=== PATIENT | male | born 1940 | race Caucasian/White ===

== ENCOUNTER 2019-04-28 09:25 | Inpatient (IN) ==
[2019-04-22 17:13] LABS: Basophils # (Auto) 0 K/mcL (0.0-0.3); Basophils % (Auto) 0.5 % (0.0-2.0); Eosinophils # (Auto) 0.2 K/mcL (0.0-0.7); Eosinophils % (Auto) 1.9 % (0.0-7.0); Granulocytes % (Auto) 66.4 % (38.0-78.0); Hemoglobin 14.4 g/dL (13.5-16.5); Lymphocytes # (Auto) 2.1 K/mcL (1.5-4.8); Lymphocytes % (Auto) 23.5 % (15.5-49.0); Mean Cell Volume 92.6 fL (80.0-100.0); Mean Corpuscular HGB Conc 32.1 g/dL (31.0-36.0); Monocytes # (Auto) 0.7 K/mcL (0.1-0.9); Monocytes % (Auto) 7.7 % (1.0-12.0); Platelet Count 230 K/mcL (140-440); RBC 4.86 M/mcL (4.50-5.90); Red Cell Distribution Width 17.5 % (11.5-14.5); WBC 9.1 K/mcL (4.5-11.0)
[2019-04-22 17:22] LABS: Prothrombin Time 13.6 sec (11.9-14.5)
[2019-04-22 17:56] LABS: Blood Urea Nitrogen 16 mg/dl (8-23); Calcium 9.3 mg/dl (8.6-10.4); Carbon Dioxide 25 mmol/L (22-30); Chloride 97 mmol/L (96-108); Glomerular Filtration Rate 57; Glucose 117 mg/dL (70-105)
[2019-04-22 19:19] LABS: Appearance,Urine HAZY; Bacteria,Urine 0 /hpf (0); Bilirubin,Urine NEG (NEG); Color,Urine AMBER; Culture Indicated,Urine YES; Glucose,Urine (UA) NEGATIVE (NEG); Ketones,Urine NEG (NEG); Leukocyte Esterase,Urine 25 /uL (NEG); Mucus,Urine MANY /hpf (0); Nitrate,Urine NEG (NEG); Protein,Urine 30 mg/dL (NEG); Specific Gravity,Urine 1.028 (1.000-1.035); Urine Blood NEG mg/dL (<0.03); Urine Granular Cast 2 /lpf (0); Urine Hyaline Cast 17 /lpf (0-2); Urine RBC 1 /hpf (0-1); Urine Squamous Epithelial Cell 1 /hpf (0-4); Urine WBC 11 /hpf (0-4)
[~2019-04-28 09:25] MED LIST: 0.9 % SODIUM CHLORIDE 9 ML, KETOROLAC 30 MG, ROPIVACAINE HCL/PF 49.5 ML, EPINEPHrine 0.... IJ SCH; CELECOXIB 200 MG CAPSULE PO SCH; PREGABALIN 75 MG CAPSULE PO SCH; ceFAZolin 3 GM in DEXTROSE 5% IN WATER 50 ML IV SCH; oxyCODONE 10 MG TAB.ER.12H PO SCH
[2019-04-28] MEDS ORDERED: SCOPOLAMINE 1 PATCH PATCH TOPICAL PRN (15:00)
[2019-04-28] MEDS ORDERED: IPRATROPIUM/ALBUTEROL 3 ML AMPUL.NEB NEB PRN ×2 (15:00→16:33)
[2019-04-28] MEDS ORDERED: ePHEDrine 50 MG/ML AMPUL IV ONE (15:25)
[2019-04-28] MEDS ORDERED: TRANEXAMIC ACID 1,000 MG/10 ML VIAL IV ONE ×2 (15:25→16:57)
[2019-04-28] MEDS ORDERED: DEXAMETHASONE 10 MG/ML VIAL IV ONE (15:25)
[2019-04-28] MEDS ORDERED: PROPOFOL 200 MG/20 ML VIAL IV ONE (15:25)
[2019-04-28] MEDS ORDERED: MIDAZOLAM 5 MG/5 ML VIAL IV ONE (15:25)
[2019-04-28] MEDS ORDERED: LIDOCAINE HCL/PF 100 MG/5 ML SYRINGE IV ONE (15:25)
[2019-04-28] MEDS ORDERED: ONDANSETRON 4 MG/2 ML VIAL IV ONE (15:25)
[2019-04-28] MEDS ORDERED: ROPIVACAINE HCL/PF 20 ML VIAL IJ ONE (15:25)
[2019-04-28] MEDS ORDERED: ONDANSETRON 4 MG/2 ML VIAL IV PRN ×3 (16:33→21:40)
[2019-04-28] MEDS ORDERED: MEPERIDINE 25 MG/ML SYRINGE IV PRN (16:33)
[2019-04-28] MEDS ORDERED: diphenhydrAMINE 50 MG/ML VIAL IV PRN (16:33)
[2019-04-28] MEDS ORDERED: LACTATED RINGERS 250 ML IV PRN (16:33)
[2019-04-28] MEDS ORDERED: fentaNYL 100 MCG/2 ML VIAL IV PRN (16:33)
[2019-04-28] MEDS ORDERED: PROMETHAZINE 25 MG/ML VIAL IV PRN (16:33)
[2019-04-28] MEDS ORDERED: ACETAMINOPHEN 1,000 MG/100 ML BOTTLE IV ONE (16:33)
[2019-04-28] MEDS ORDERED: FLUMAZENIL 0.1 MG/ML ML IV PRN (16:33)
[2019-04-28] MEDS ORDERED: NALOXONE HCL 0.4 MG/ML VIAL IV PRN (16:33)
[2019-04-28] MEDS ORDERED: BENZOCAINE/MENTHOL 1 LOZENGE PO PRN ×3 (16:33→21:40)
[2019-04-28] MEDS ORDERED: GENTAMICIN SULFATE 800 MG/20 ML VIAL IR ONE (16:40)
[2019-04-28] MEDS ORDERED: LACTATED RINGERS 1,000 ML IV SCH (16:45)
[2019-04-28] MEDS ORDERED: METHOCARBAMOL 750 MG TABLET PO PRN ×2 (16:57→21:40)
[2019-04-28] MEDS ORDERED: MAGNESIUM HYDROXIDE 30 ML ORAL.SUSP PO PRN ×2 (16:57→21:40)
[2019-04-28] MEDS ORDERED: POLYETHYLENE GLYCOL 3350 17 GM PACKET PO PRN ×2 (16:57→21:40)
[2019-04-28] MEDS ORDERED: HYDROcodone/APAP 10/325MG TABLET PO PRN ×2 (16:57→21:40)
[2019-04-28] MEDS ORDERED: FLEETS ADULT ENEMA PR PRN ×2 (16:57→21:40)
[2019-04-28] MEDS ORDERED: BISACODYL 10 MG SUPP.RECT PR PRN ×2 (16:57→21:40)
[2019-04-28] MEDS ORDERED: ONDANSETRON 4 MG ODT TABLET SL PRN ×2 (16:57→21:40)
--- NOTE | 2019-04-28 16:57 | Brief Operative Note ---
Date of procedure: 04/28/19 Pre-op diagnosis: right knee osteoarthritis Post-op diagnosis: same Procedure: right total knee arthroplasty Grafts/Implants: Yes Anesthesia: spinal Complications: none Surgeon: Jovon Coleman Application Manager: Stephanie Bess Estimated blood loss (cc): 200 Tourniquet Time (Minutes): 59 Specimens Removed/Pathology: none sent Condition: stable Disposition: PACU
[2019-04-28] MEDS ORDERED: 0.9 % SODIUM CHLORIDE 1,000 ML IV SCH (17:00)
[2019-04-28] MEDS ORDERED: METOPROLOL TARTRATE 5 MG/5 ML VIAL IV PRN ×2 (17:52→21:40)
--- NOTE | 2019-04-28 17:56 | Internal Medicine Consult Note ---
Medical - CN: [facility] - Data of Consult Consult date: 04/28/19 Primary Care Provider: J Luis Rodriguez Family Provider: J Luis Rodriguez - Consult Narrative History of present illness: Mr. Padilla is a 79 year old M Who underwent elective right total knee arthroplasty is noted to have atrial fibrillation at the end of the operation. In PACU. It was rate controlled. The preop EKG was wandering pacemaker. She is hemodynamic stable. Hospitalist consulted for possible new atrial fibrillation Spoke with his and she says he does have in a regular heart rhythm that comes and goes especially if he does not take his verapamil. But she could not recall if it was called atrial fibrillation or flutter. He takes aspirin as a precaution, baby aspirin. His states he is never been on any anticoagulants. Per his he has a history of COPD, she states he will deny it. Unable to gather review of systems as patient still sedated and anesthesia CC: Jovon Coleman Medical - CN: [facility] Medical history: Past medical history: Hypertension hyperlipidemia GERD COPD arrhythmia NOS Past surgical history: Left knee appendectomy Family: Mother and father both had cancer Social history: Patient quit smoking a year ago Has 1 mixed drink at night Ambulate with cane Lives at home with his Medical - CN: Meds Home Medications Medication Instructions Recorded Confirmed Type Aspirin [Adult Aspirin] 81 mg PO DAILY 04/22/19 04/28/19 History Ferrous Sulfate [Feosol] 650 mg PO DAILY 04/22/19 04/28/19 History Furosemide [Lasix] 80 mg PO DAILY 04/22/19 04/28/19 History Lisinopril [Zestril] 20 mg PO DAILY 04/22/19 04/28/19 History Lovastatin 40 mg PO DAILY 04/22/19 04/28/19 History Ranitidine HCl [Acid Appeals Referee] 150 mg PO DAILY 04/22/19 04/28/19 History Verapamil [Calan Sr] 240 mg PO DAILY 04/22/19 04/28/19 History Vit A,C & E/Lutein/Minerals 1 tab PO DAILY 04/22/19 04/28/19 History [Ocuvite] Vitamin D3 5,000 unit PO DAILY 04/22/19 04/28/19 History Allergies Allergy/AdvReac Type Severity Reaction Status Date / Time No Known Drug Allergies Allergy Unverified 04/22/19 13:05 Medical - CN: Exam - Constitutional Vitals: Temp Pulse Resp BP Pulse Ox 97.8 F 86 17 122/71 94 04/28/19 17:12 04/28/19 17:40 04/28/19 17:40 04/28/19 17:40 04/28/19 17:40 Exam: General: Still sedated from anesthesia, no acute distress Eyes/N/T: PEERL, Head/Neck: neck supple, normocephalic atraumatic CV: irreg irreg, No murmurs, normal s1/s2 Pulm: Clear b/l, no wheezing/rhonchi/rales Abd: soft, +BS x4, 2 burnt Ext: no clubbing/cyanosis/edema Neuro: Still sedated from anesthesia but moving arms spontaneously, partially opens eyes to voice Skin: warm/dry Medical - CN: Result - Labs CBC & Chem 7: 04/22/19 13:39 04/22/19 13:39 Medical - CN: A/P - Narrative A/P Narrative: A: *AFib post-op: ?new or chronic (PAF): states he has an arrhythmia that he takes verapamil for and she does not recall what type, he has not been on anticoagulation -CHADSVASC=3 *Right TKA: *HTN/HLD: *GERD: *COPD: * P: -cont home verapamil -check mg/tsh/echo -Obtain records from primary care provider -Monitor on telemetry -Discussed with patient regarding anticoagulation - -knee per ortho, pt/ot -ppx: per ortho
[2019-04-28] MEDS ORDERED: KETOROLAC 15 MG/ML VIAL IV SCH (18:00)
--- NOTE | 2019-04-28 18:02 | XRay Report ---
CLINICAL INFORMATION: Post-Op Total Knee COMPARISON: None. FINDINGS: Total knee prostheses is anatomically aligned. No osseous abnormality. Periarticular gas and soft tissue swelling seen as expected. IMPRESSION: Negative Interpreted and Authenticated by: Jovon Raymundo 04/28/19
[2019-04-28 19:14] LABS: Basophils # (Auto) 0 K/mcL (0.0-0.3); Basophils % (Auto) 0.2 % (0.0-2.0); Eosinophils # (Auto) 0.2 K/mcL (0.0-0.7); Eosinophils % (Auto) 2.1 % (0.0-7.0); Granulocytes % (Auto) 82.6 % (38.0-78.0); Hematocrit 41.9 % (41.0-55.0); Hemoglobin 13.5 g/dL (13.5-16.5); Lymphocytes # (Auto) 1.1 K/mcL (1.5-4.8); Lymphocytes % (Auto) 14.3 % (15.5-49.0); Mean Cell Volume 92.3 fL (80.0-100.0); Mean Corpuscular HGB Conc 32.2 g/dL (31.0-36.0); Monocytes # (Auto) 0.1 K/mcL (0.1-0.9); Monocytes % (Auto) 0.8 % (1.0-12.0); Platelet Count 196 K/mcL (140-440); RBC 4.54 M/mcL (4.50-5.90); Red Cell Distribution Width 17.3 % (11.5-14.5); WBC 7.5 K/mcL (4.5-11.0)
[2019-04-28 19:46] LABS: ALT/SGPT 14 U/l (0-40); AST/SGOT 14 U/l (0-37); Albumin 3.5 gm/dL (3.2-5.2); Albumin/Globulin Ratio 1.3 (1.0-2.3); Alkaline Phosphatase 67 U/L (39-117); Bilirubin,Direct < 0.2 mg/dL (0.0-0.3); Bilirubin,Total 0.3 mg/dL (0.0-1.0); Blood Urea Nitrogen 16 mg/dl (8-23); Calcium 8.8 mg/dl (8.6-10.4); Carbon Dioxide 24 mmol/L (22-30); Chloride 102 mmol/L (96-108); Globulin 2.8 gm/dL (2.2-3.7); Glomerular Filtration Rate 57; Glucose 177 mg/dL (70-105); Lactate Dehydrogenase 180 U/L (94-250); Phosphorous 3.4 mg/dL (2.7-4.5); Triglycerides 194 mg/dl (<150); Uric Acid 9.4 mg/dL (2.5-8.0)
[2019-04-28] MEDS ORDERED: SIMVASTATIN 10 MG TABLET PO SCH (21:00)
[2019-04-28] MEDS ORDERED: ASPIRIN 81 MG TAB.CHEW PO SCH (21:00)
[2019-04-28] MEDS ORDERED: SENNOSIDES 1 TABLET PO SCH (21:00)
[2019-04-28] MEDS ORDERED: DOCUSATE SODIUM 100 MG CAPSULE PO SCH (21:00)
[2019-04-28] MEDS: 0.9 % SODIUM CHLORIDE 1,000 ML IV SCH (21:51)
[2019-04-28] MEDS: 0.9 % SODIUM CHLORIDE 10 ML SYRINGE IV SCH (21:52)
[2019-04-28] MEDS ORDERED: ASPIRIN 81 MG TAB.CHEW ONE (21:57)
[2019-04-28] MEDS ORDERED: 0.9 % SODIUM CHLORIDE 10 ML SYRINGE IV SCH (22:00)
[2019-04-28] MEDS: ceFAZolin 1 GM VIAL IV SCH (22:08)
[2019-04-28] MEDS ORDERED: ceFAZolin 1 GM VIAL IV SCH (22:30)
[2019-04-28] MEDS: KETOROLAC 15 MG/ML VIAL IV SCH (23:55)
[2019-04-29] MEDS: 0.9 % SODIUM CHLORIDE 1,000 ML IV SCH (05:51)
[2019-04-29] MEDS: 0.9 % SODIUM CHLORIDE 10 ML SYRINGE IV SCH (05:52)
[2019-04-29] MEDS: ceFAZolin 1 GM VIAL IV SCH (05:52)
[2019-04-29] MEDS: KETOROLAC 15 MG/ML VIAL IV SCH (05:53)
[2019-04-29 05:57] LABS: Hematocrit 38.3 % (41.0-55.0); Hemoglobin 12.6 g/dL (13.5-16.5)
--- NOTE | 2019-04-29 07:24 | Operative Note ---
DATE OF OPERATION: 04/28/2019 PREOPERATIVE DIAGNOSIS: Degenerative joint disease, right knee. POSTOPERATIVE DIAGNOSIS: Degenerative joint disease, right knee. PROCEDURE: Right total knee arthroplasty. SURGEON: Vickie Coleman M.D. BALLISTICS PROFESSOR SURGEON: Stephanie Bess PA-C. This provider's expertise and technical skill were required throughout the case. The PA assisted with preoperative coordination, intraoperative retraction, wound closure, dressing and splint application, as well as postoperative documentation and care coordination. ANESTHESIA: Spinal with LMA assist. ESTIMATED BLOOD LOSS: 150 mL COMPLICATIONS: None noted. SPECIMENS REMOVED: None. DRAINS: None. TOURNIQUET TIME: 59 minutes at 300 mmHg. IMPLANTS: DePuy CMW2 bone cement 20 grams x5, DePuy Attune femoral posterior stabilized size 9 right cemented, DePuy Attune tibial based fixed bearing size 9 cemented, DePuy Attune tibial insert fixed bearing posterior stabilized size 9, 8 mm AOX, DePuy Attune patella medialized dome 41 mm cemented AOX. INDICATIONS: The patient has had a long-standing history of worsening pain in the knee that has failed conservative treatment. Radiographs have confirmed advanced degenerative joint disease. After a long discussion about treatment options, the patient elected to proceed with a knee arthroplasty. The risks and benefits were discussed with the patient in detail including, but not limited to, the risks of anesthesia, problems with the heart or lungs related to anesthesia, infection, compromise or injury to the nerves and blood vessels, deep venous thrombosis, pulmonary embolism, pneumonia, continued pain after surgery, worsening pain or symptoms after surgery, swelling, loss of motion, instability, leg length discrepancy, and need for repeat surgery. DESCRIPTION OF PROCEDURE: The patient was seen in the pre-anesthesia waiting room where all questions were answered and the correct side and site were identified and marked. The patient was transferred to the operating room and administered the anesthetic and given pre-operative antibiotics. A time-out was then called. The extremity was prepped and draped, exsanguinated, and the tourniquet was inflated to 300 mmHg. A midline skin incision was then made with a standard medial parapatellar arthrotomy. Debridement of the menisci, ACL, and PCL was performed followed by balancing releases in the medial lateral plane. We then established intramedullary access to both the femur and tibia in a standard fashion. The femoral guide rimma was initially placed with the distal femoral guide, pinned into place, and the distal femoral cut was performed and checked with a flat plate. We then turned our attention to the tibia. The intramedullary guide was placed with the proximal tibial cutting block. The block was appropriately positioned off the affected side, varus and valgus was checked with the extra-medullary guide, and the block was pinned into place. The proximal tibial cut was performed and the tibia was prepared for the tibial implant with appropriate rotation. The tibia, femur, and posterior compartment were debrided of osteophytes, loose bodies, and meniscal fragments We then used the gap balancing technique to balance extension with the first two cuts and good balancing was obtained with a 10 millimeter gap block. We turned our attention back to the femur and used the referencing block and implant to size appropriately. Using the gap balancing technique for the flexion space we set our rotation of the femur off the tibial cut. Anesthesia gave the patient 1 gram of Tranexamic Acid via an intravenous route. We placed the 4 in 1 cutting block and made anterior, posterior, and chamfer cuts. Box plasty cuts were then made in a standard fashion for the posterior stabilized prosthesis. We then completed osteophyte release and posterior capsule release from the posterior compartment. Trials were placed and we chose the polyethylene insert thickness that provided the best stability in all planes. With the trials in place, we did a measured resection for a resurfacing patella. We sized the patella and placed the patella trial and performed a lateral facetectomy with the saw and rongeur. Good tracking was obtained. We removed all trials, irrigated and dried all cut surfaces. We cemented the components into place including tibia, femur and patella. We placed a trial liner and held the knee in full extension with the patella compressed while the cement cured. We then removed all excess cement and placed the final polyethylene tibiofemoral component. Irrigation with 3 liters of antibiotic saline was then performed using jet-lavage. We let the tourniquet down and coagulated bleeding vessels. We injected a 100 cubic centimeter volume including Ropivacaine 49.25 cubic centimeters at 5 milligrams per cubic centimeter, Ketorolac 30 milligrams, and Epinephrine 0.5 milligrams into 100 cubic centimeters volume of normal saline. We closed the retinaculum with #2 Stratafix and 0 Vicryl. We closed the subcutaneous tissue and skin in layers out to Dermabond on the skin. A sterile pressure dressing was applied. All needle and sponge counts were correct. The patient was transferred to the recovery room in stable condition. JARAD:kylee Job ID: [id number] Doc ID: [id number] Vickie Coleman MD
--- NOTE | 2019-04-29 07:31 | Discharge Summary ---
Providers - Providers Patient information: Note initiated : 04/29/19 at 7:29 am Service Date, if different from initiated Date: [] Patient: Jovon Padilla 79 y/o M admitted on 04/28/19 for Right Total Knee Arthroplasty. Chief Complaint: [POD #1 s/p right TKA Unable to speak with patient during my visit as he's undergoing echocardiogram. He was placed in ICU on telemetry post op as he developed atrial fibrillation during surgery. Nurse states his knee is doing well. He was able to stand and walk.] Discharge date: 04/29/19 Hospitalization Hospital course: Patient underwent right total knee replacement and developed atrial fibrillation at the end of surgery. He was sent to telemetry in the ICU to monitor this. The hospitalist was consulted to manage this condition and is running tests at this time. From an ortho standpoint, he may discharge when medically stable. He will follow up in 10-14 days for post op care. Discharge diagnosis: knee osteoarthritis Exam - Exam Range of motion: unable to perform exam Ortho Discharge - TKA - Patient Instructions Diet: Regular Diet Activity: weight bearing as tolerated Total Knee Protocol: For Total Knee: Start ROM MYNOR with stationary bike or rocking chair. Work on gaining full extension of knee. Posterior dislocation precautions provided. Hip abductor strengthening and gait training instructions provided. Apply Cryocuff as instructed. Dressing Care: May shower in 2 days, Other (dermabond- may remove XIN and gauze. Keep mesh patch on skin until PO in office. May shower on top of, dry when finished and replace with fresh gauze) - Follow Up Plan Follow Up Appointments: Stephanie Bess PA-C [Physician [employer] Middleware Developer] - 05/13/19 9:00 am Disposition: Home, Self-Care Prognosis: Fair Rehab Potential: Fair I certify that the patient requires SNF services: No Overall status at discharge: other (patient being treated for cardiology concern) - Orders For Discharge Prescriptions: HYDROcodone/APAP 10/325MG [[place] 10-325Mg] 1 - 2 tab PO Q4HP PRN #60 tab PRN Reason: Pain Level 3-6 Additional Discharge Orders: Physical Therapy at Discharge - TKA Location: None Selected Walker Location: None Selected Pending Studies Resuscitation Status Full Code Diet Regular Diet Start SatApr 28 1658 Hydrocodone Bitart/Acetaminophen ([place] 10/325mg) 0 tab PO Q4HP PRN PRN Reason: PAIN LEVEL 3-6 Last Admin: 04/28/19 22:20 Dose: 1 tab Documented by: JEROME Sodium Chloride (Sodium Chloride 0.9%) 1,000 mls @ 125 mls/hr IV .Q8H [facility] Last Admin: 04/29/19 05:51 Dose: Not Given Documented by: Admin: 04/28/19 21:51 Dose: Not Given Documented by: JEROME Ketorolac Tromethamine (Toradol) 15 mg IV Q6 [facility] Stop: 04/30/19 12:01 Last Admin: 04/29/19 05:53 Dose: 15 mg Documented by: Admin: 04/28/19 23:55 Dose: 15 mg Documented by: JEROME Sodium Chloride (Saline Flush) 10 ml IV Q8 [facility] Last Admin: 04/29/19 05:52 Dose: 10 ml Documented by: Admin: 04/28/19 21:52 Dose: Not Given Documented by: JEROME Shift Summary 04/29/19 03:45 Shift Summary by Jimmy Swanson Addendum entered by Jimmy Swanson 04/29/19 04:13: per pt and if pt is sleeping please DO NOT GRAB /TOUCH pts arm or shoulder- he WILL SWING at you unintentionally, it is ok to touch his leg or foot, d/t pt being [facility] he awakens with some difficulty Original Note: admitted for Rt. TKA yesterday afternoon, pt had episode of Afib RVR during surgery therefore changed to tele status, pt stated this "isn't new for me", WE NEED RECORDS FROM DR. PINEDA today if possible please per order, AFIB tonight HR 80'S-1teens, did have pause X2 4.09 sec and 2.79 sec, SR post pause for a short time, BP stable, RA mid 90's, 18G LH, stood at bedside and took a few steps w/FWW/gait belt and SBA, tolerated well, , AVB on, tolerated CPM for approx. 2.5 hours at 50 degrees, DSG CDI, cryo on/off t/o night, medicated w/hydrocone 10/325mg x1 for c/o rt. hip pain, receiving scheduled toradol, [facility] but very pleasant, has FWW/cane/crutches at home already, pt wishing to d/c home with today if possible Initialized on 04/29/19 03:45 - END OF NOTE
--- NOTE | 2019-04-29 07:53 | Internal Med Progress Note ---
Medical - PN: Subj Patient information: Note initiated : 04/29/19 at 7:51 am Service Date, if different from initiated Date: [] Patient: Jovon Padilla 79 y/o M admitted on 04/28/19 for Right Total Knee Arthroplasty. Chief Complaint: [] Interval history: Mr. Padilla is a 79 year old M Who underwent elective right total knee arthroplasty is noted to have atrial fibrillation at the end of the operation. In PACU. It was rate controlled. The preop EKG was wandering pacemaker. She is hemodynamic stable. Hospitalist consulted for possible new atrial fibrillation Spoke with his and she says he does have in a regular heart rhythm that comes and goes especially if he does not take his verapamil. But she could not recall if it was called atrial fibrillation or flutter. He takes aspirin as a precaution, baby aspirin. His states he is never been on any anticoagulants. Per his he has a history of COPD, she states he will deny it. 04/29 Patient feeling good. No overnight events. No new complaints. States he has a history of irregular rhythm but cannot tell me if his atrial fibrillation or flutter. He converted normal sinus rhythm about 7:00 this morning. I talked to him about anti-coagulation because of his CHADSVASC=3 and the increased risk of stroke. He wants to stay on aspirin and talk to Dr. Rodriguez. Review of Systems: denies headache/fever/chills/nausea/vomiting/chest or abdominal pain/cough/dyspnea/diarrhea. Otherwise see above. - Constitutional Vitals: Vital Signs Temp Pulse Resp BP Pulse Ox 96.9 F L 110 H 18 106/63 96 04/29/19 04:01 04/28/19 22:01 04/29/19 04:01 04/29/19 04:01 04/29/19 04:01 Period Temp Pulse Resp BP Sys/Donald Pulse Ox Last 24 Hr 96.5 F-98.3 F 43-110 14-22 104-138/57-101 86-100 Intake and Output 04/28/19 04/29/19 04/29/19 21:59 05:59 13:59 Intake Total 2070 1500 Output Total 125 Balance 2071 1375 Weight 128.367 kg Intake & Output: Intake & Output 04/28/19 04/29/1919 21:59 05:59 13:59 Intake Total 2070 1500 Output Total 125 Balance 2070 1375 Weight 128.367 kg Intake: IV 171 1000 Oral 500 IV - Manual Only 1900 Output: Void Amount 125 Other: Meal Nourishment/Supplement Percent of Meal Consumed 100% Feeding Ability Assist with Tray Set Up Urine Appearance Cloudy Sediment Urine Color Bright Yellow Exam: General: alert awake, no acute distress Eyes/N/T: EOMI, Head/Neck: neck supple, CV: RRR, No murmurs, Pulm: Clear b/l, no wheezing/rhonchi/rales Abd: soft, +BS x4, Ext: no clubbing/cyanosis/edema Neuro: alert and awake, no focal deficits Skin: warm/dry Medical - PN: Obj Da - Labs CBC & Chem 7: 04/29/19 03:19 04/28/19 18:18 Labs: Abnormal Lab Results 04/29/19 04/28/19 04/28/19 03:19 18:18 18:18 Hgb 12.6 L Hct 38.3 L RDW 17.3 H Gran % 82.6 H Lymph % (Auto) 14.3 L [place] % (Auto) 0.8 L Lymph # (Auto) 1.1 L Glucose 177 H Uric Acid 9.4 H Triglycerides 194 H Meds: Medications Hydrocodone Bitart/Acetaminophen ([place] 10/325mg) 0 tab PO Q4HP PRN PRN Reason: PAIN LEVEL 3-6 Last Admin: 04/28/19 22:20 Dose: 1 tab Documented by: Aspirin (Aspirin) 81 mg PO BID [facility] Bisacodyl (Dulcolax) 10 mg MO Q2-3DAYS PRN PRN Reason: Constipation Docusate Sodium (Colace) 100 mg PO BID [facility] Famotidine (Pepcid) 20 mg PO DAILY [facility] Furosemide (Lasix) 80 mg PO DAILY [facility] Sodium Chloride (Sodium Chloride 0.9%) 1,000 mls @ 125 mls/hr IV .Q8H [facility] Last Admin: 04/29/19 05:51 Dose: Not Given Documented by: Ketorolac Tromethamine (Toradol) 15 mg IV Q6 [facility] Stop: 04/30/19 12:01 Last Admin: 04/29/19 05:53 Dose: 15 mg Documented by: Lisinopril (Zestril) 20 mg PO DAILY [facility] Magnesium Hydroxide (Milk Of Magnesia) 30 ml PO BIDP PRN PRN Reason: Constipation Methocarbamol (Robaxin) 750 mg PO Q6HP PRN PRN Reason: Muscle Spasm Metoprolol Tartrate (Lopressor) 5 mg IV Q2HP PRN PRN Reason: Tachyarrhythmias HR>110 Morphine Sulfate (Morphine) 0 mg IV Q1HP PRN PRN Reason: PAIN LEVEL > 6 Ondansetron HCl (Zofran) 4 mg IV Q4HP PRN PRN Reason: Nausea And Vomiting Ondansetron HCl (Zofran Odt) 4 mg SL Q4HP PRN PRN Reason: Nausea And Vomiting Polyethylene Glycol (Miralax) 17 gm PO DAILYP PRN PRN Reason: Constipation Senna (Senokot) 2 tab PO HS [facility] Simvastatin (Zocor) 10 mg PO HS [facility] Sodium Biphosphate/Sodium Phosphate (Fleets Adult) 1 dose MO Q3-4DAYS PRN PRN Reason: Constipation Sodium Chloride (Saline Flush) 10 ml IV Q8 [facility] Last Admin: 04/29/19 05:52 Dose: 10 ml Documented by: Throat Lozenges (Cepacol) 1 lozenge PO PRN PRN PRN Reason: Sore Throat Verapamil HCl (Calan Sr) 240 mg PO DAILY [facility] Medical - PN: A/P - Time Spent With Patient Total time spent is greater than 50% in coordination of care (as documented) at patient's floor/unit and/or counseling patient: - Narrative A/P Narrative: A: *AFib post-op: ?new or chronic (PAF): Patient states he has a has history of irregular rhythm but could not say if it was atrial fibrillation flutter -CHADSVASC=3 -Converted to normal sinus rhythm this morning *Right TKA: *HTN/HLD: *GERD: *COPD: *CAD: *Dilated CMP: P: -cont home verapamil -echo pending -I talked to him about anticoagulation because of the increased stroke risk. However he wants to stay on aspirin and follow-up with his primary care provider and decide from there -cont ASA -knee per ortho, pt/ot -ppx: per ortho will sign off. Medical - PN: Qual - VTE Deep Vein Thrombosis/Pulmonary Embolism Present on Admission: No
[2019-04-29] MEDS ORDERED: ASPIRIN 81 MG TAB.CHEW PO SCH (09:00)
[2019-04-29] MEDS ORDERED: LISINOPRIL 20 MG TABLET PO SCH ×2 (09:00)
[2019-04-29] MEDS ORDERED: FUROSEMIDE 40 MG TABLET PO SCH ×2 (09:00)
[2019-04-29] MEDS ORDERED: VERAPAMIL 120 MG TAB.XL.24H PO SCH ×2 (09:00)
[2019-04-29] MEDS ORDERED: FAMOTIDINE 20 MG TABLET PO SCH ×2 (09:00)
[2019-04-29] MEDS ORDERED: DOCUSATE SODIUM 100 MG CAPSULE PO SCH (09:00)
[2019-04-29] MEDS ORDERED: SIMVASTATIN 10 MG TABLET PO SCH (21:00)
[2019-04-29] MEDS ORDERED: SENNOSIDES 1 TABLET PO SCH (21:00)
--- NOTE | 2019-05-22 07:49 | Operative Note ---
DATE OF OPERATION: 04/28/2019 PREOPERATIVE DIAGNOSIS: Right knee wound dehiscence status post fall after total knee arthroplasty. POSTOPERATIVE DIAGNOSIS: Right knee wound dehiscence status post fall after total knee arthroplasty. PROCEDURE: 1. Right knee irrigation and debridement with right knee liner exchange/revision of one component. 2. Right knee antibiotic bead placement. 3. Repair of torn medial retinaculum. SURGEON: Vickie Coleman M.D. OIL LEASE BROKER SURGEON: Stephanie Bess PA-C. This provider's expertise and technical skill were required throughout the case. The PA assisted with preoperative coordination, intraoperative retraction, wound closure, dressing and splint application, as well as postoperative documentation and care coordination. ANESTHESIA: General. INTRAOPERATIVE FINDINGS: Fall with a dehiscence of previously closed wound with no gross contamination, but a complete dehiscence of the medial parapatellar arthrotomy. INDICATIONS: The patient is an 79-year-old male who had previously fallen and had a wound dehiscence which was treated with irrigation and debridement, liner exchange, and antibiotics beads. He was at [facility] and was about 3 weeks out, eliza had just been removed. He went to the bathroom and fell directly onto his knee, onto a metal bar and reopened his knee. We talked about different options. He is at high risk for infection but due to the reopening and his medical condition, I felt that a liner exchange with irrigation and debridement would be a good option rather than temporary two-stage antibiotic spacer. They wished to proceed with surgical intervention. The risks and benefits were discussed with the patient in detail including, but not limited to, the risks of anesthesia, problems with the heart or lungs related to anesthesia, infection, compromise or injury to the nerves and blood vessels, deep venous thrombosis, pulmonary embolism, pneumonia, continued pain after surgery, worsening pain or symptoms after surgery, swelling, loss of motion, re-tear or failure of repair site, and need for repeat surgery. DESCRIPTION OF PROCEDURE: The patient was seen preoperatively where site and side were properly identified and marked, and all questions were answered. He was transferred to the operating room and given 2 grams Rocephin and general anesthesia was administered without complication. He was prepped ad draped in the usual sterile fashion from the talus up to the tourniquet. Tourniquet was deflated and no Esmarch was used. The knee was already opened. We thoroughly irrigated with 6 liters saline under jet lavage. I removed the polyethylene liner and we continued debriding with additional 3 liters antibiotic saline. We used IrriSept. We used ring curets and rongeur to remove all the fibrinous tissue. He has completely dehisced the medial parapatellar arthrotomy. I then exchanged for another polyethylene liner, Attune tibial insert fixed bearing posterior stabilized size 9, 6 mm AOX. We again irrigated with antibiotic saline and IrriSept. I placed antibiotic beads in the knee. I fixed and closed the medial parapatellar arthrotomy with #2 Stratafix. The lateral side was also repaired with #1 Monocryl. We then closed the subcutaneous layer in layers with Stratafix, 2-0 Monocryl, 3-0 Monocryl and the skin was closed with 0 Prolene and eliza. He was dressed with Xeroform, 4 x 4s, ABD, and an Henry bandage. He was placed into a knee ranger, locked in extension. He was then extubated and transferred to a stretcher and taken to the PACU in stable condition. SPECIMENS: None. COMPLICATIONS: None. DRAINS: None. DISPOSITION: To Post-Anesthetic Care Unit in stable condition. JARAD:kylee Job ID: [id number] Doc ID: [id number] Vickie Coleman MD
== END 2019-04-29 11:05 | disposition home or self-care (01) | DRG 470 ==
LOC: MEDSUR 12:33 → ICU 18:05
PROVIDERS: ADMIT Orthopaedic Surgery Sports Medicine; ATTEND Orthopaedic Surgery Sports Medicine

== ENCOUNTER 2019-05-01 09:48 | Inpatient (IN) ==
--- NOTE | 2019-05-01 10:02 | Emergency Department Note ---
Lower Extremity Injury HPI - General Chief Complaint: Extremity Injury, Lower Stated Complaint: lower extremity injury Time Seen by Provider: 05/01/19 10:00 Source: patient Mode of arrival: EMS Limitations: no limitations - History of Present Illness HPI Narrative: 79-year-old male patient presents to the emergency department via ambulance with chief complaint of recurrent right knee injury. Patient underwent total knee replacement on 04/[address] Coleman (orthopedic surgeon). He was discharged from the hospital on 04/30. Unfortunately, she fell at home while walking down some stairs. He tells me she "stepped wrong foot" and caused his new knee joint to a buckle underneath him. This caused him to open the fresh surgical wound. She attempted to go to physical therapy who evaluated his knee and dressed it. They contacted EMS and was transported via and lives. On arrival, patient has no considerable complaints. He denies any pain. He denies hitting his head or loss of consciousness. He denies any radiculopathy. - Related Data Home Medications Medication Instructions Recorded Confirmed Ferrous Sulfate [Feosol] 650 mg PO DAILY 04/22/19 04/28/19 Furosemide [Lasix] 80 mg PO DAILY 04/22/19 04/28/19 Lisinopril [Zestril] 20 mg PO DAILY 04/22/19 04/28/19 Lovastatin 40 mg PO DAILY 04/22/19 04/28/19 Ranitidine HCl [Acid Gis Engineer] 150 mg PO DAILY 04/22/19 04/28/19 Verapamil [Calan Sr] 240 mg PO DAILY 04/22/19 04/28/19 Vit A,C & E/Lutein/Minerals 1 tab PO DAILY 04/22/19 04/28/19 [Ocuvite] Vitamin D3 5,000 unit PO DAILY 04/22/19 04/28/19 Previous Rx's Medication Instructions Recorded Aspirin [Children's Aspirin] 81 mg PO BID 30 Days #60 tab.chew 04/29/19 HYDROcodone/APAP 10/325MG [[place] 1 - 2 tab PO Q4HP PRN #60 tab 04/29/19 10-325Mg] Allergies Allergy/AdvReac Type Severity Reaction Status Date / Time No Known Drug Allergies Allergy Unverified 04/22/19 13:05 Review of Systems All systems ED: reviewed and negative except as stated. Past Medical History - Past Medical History Medical history: Reports: arthritis, atrial fibrillation (possible new onset. Patient does have known arrhythmia currently taking verapamil.), COPD, obesity Psychiatric history: Reports: no psych history Surgical history ED: Reports: hip replacement, knee replacement - Social History smoking status: Former smoker Physical Exam Limitations: no limitations General appearance: alert, in no apparent distress Head: atraumatic, normocephalic Eye: Present: normal appearance, PERRL, EOMI. Absent: scleral icterus, conjunctival injection ENT: normal oropharynx, mucous membranes moist Neck: Present: trachea midline. Absent: lymphadenopathy, thyromegaly Chest: Present: symmetric chest wall rise Respiratory: Present: normal lung sounds bilaterally. Absent: respiratory distress, wheezes, stridor, accessory muscle use, prolonged expiratory phase Cardiovascular: Present: regular rate, normal rhythm. Absent: systolic murmur, diastolic murmur Abdominal: Present: soft. Absent: distention, tenderness, guarding, rebound, rigidity, organomegaly, mass Shoulder: Present: normal inspection, full ROM Arm: Present: normal inspection, full ROM Elbow: Present: normal inspection, full ROM Forearm/Wrist: Present: normal inspection, full ROM Hand: Present: normal inspection, full ROM Neuromotor: Normal: other (moves both extremities for range of motion. Strength 5/5.) Neurosensory: Normal: other (sensation grossly intact light touch.) Vascular: Normal: capillary refill ( Less than 2 seconds) Knee: Present: other (right knee in partial extension. Henry wrap dressing in place a scant amount of a blood to the superior aspect. This was removed revealing a erythematous swollen knee joint with a midline surgical incision. Wound dehiscence noted to the inferior aspect with dry crusted blood. No obvious bleeding. No range of motion was performed.) Lower leg: Present: swelling (bilateral lower extremities) Ankle: Present: swelling Foot/toe: Present: swelling Course Course Narrative: Patient is brought into the emergency department and a history of physical exam was performed. A preoperative evaluation was initiated with anticipation the patient seen orthopedic surgeon within the next 24 hours. IV was established laboratory studies were drawn. EKG, chest x-ray, an x-ray of the knee were obtained. He did not complain of any pain upon arrival. The wound was gently cleansed and redressed with gauze and Henry wrap. A review of his laboratory studies show CBC with a normal white blood cell count and a mild normocytic anemia: RBC 3.66, hemoglobin 11.1, hematocrit 33.7. CMP showed a BUN 27 and glucose 139. All others are within normal limits. Urinalysis is pending. Chest x-ray was normal. Knee x-ray showing small joint effusion with a small amount of methacrylate along the posterior lateral tibiofemoral joint. The hardware is anatomically aligned. EKG showing atrial fibrillation at a rate of 116. No ST segment changes. No ectopy. Patient remained hemodynamically stable throughout the entire time in the emergency department. I consulted with the hospitalist service (Dr. Corrigan) about the patient's need for admission and eventual surgical intervention. He was told that Dr. Coleman had been notified. The hospitalist consented to admit the patient to the hospital. All other treatment modalities and decisions will be carried out by the hospitalist. The patient left the emergency department in stable condition. Vital Signs Temperature 97.0 F 05/01/19 09:49 Pulse Rate 123 H 05/01/19 09:49 Respiratory Rate 18 05/01/19 09:49 Blood Pressure 113/79 05/01/19 09:49 Pulse Oximetry (%) 96 05/01/19 09:49 Temperature 97.0 F 05/01/19 09:49 Pulse Rate 77 05/01/19 11:17 Respiratory Rate 18 05/01/19 09:49 Blood Pressure 121/71 05/01/19 11:18 Pulse Oximetry (%) 95 05/01/19 11:18 Extremity Injury, Lower - Lab Data Lab results reviewed: Yes I reviewed the patient's lab results. Result diagrams: 05/01/19 09:55 05/01/19 09:55 Lab Results 05/01/19 05/01/19 Range/Units 09:55 09:55 WBC 8.9 (4.5-11.0) K/mcL RBC 3.66 L (4.50-5.90) M/mcL Hgb 11.1 L (13.5-16.5) g/dL Hct 33.7 L (41.0-55.0) % MCV 92.0 (80.0-100.0) fL MCH 30.3 (26.0-34.0) pg MCHC 32.9 (31.0-36.0) g/dL RDW 17.6 H (11.5-14.5) % Plt Count 210 (140-440) K/mcL MPV 9.1 (7.4-10.4) fL Total Counted 100 Seg Neutrophils % 78 (38-78) % Band Neutrophils % Not Reportable Lymphocytes % 19 (15-49) % Monocytes % (Manual) 3 (1-12) % Platelet Estimate Normal (NORMAL) RBC Morphology Abnorm A (NORMAL) Anisocytosis 1+ A (NONE SEEN) Sodium 138 (133-145) mmol/L Potassium 4.6 (3.3-5.1) mmol/L Chloride 102 (96-108) mmol/L Carbon Dioxide 24 (22-30) mmol/L Anion Gap 12.0 (8-16) BUN 27 H (8-23) mg/dl Creatinine 1.2 (0.7-1.2) mg/dl GFR Calculation 57 Glucose 139 H (70-105) mg/dL Calcium 8.7 (8.6-10.4) mg/dl Total Bilirubin 0.6 (0.0-1.0) mg/dL AST 16 (0-37) U/l ALT 7 (0-40) U/l Alkaline Phosphatase 57 (39-117) U/L Total Protein 6.3 (5.9-8.4) gm/dL Albumin 3.3 (3.2-5.2) gm/dL Globulin 3.0 (2.2-3.7) gm/dL Albumin/Globulin Ratio 1.1 (1.0-2.3) - Radiology Data Radiology results reviewed: Yes I reviewed the patient's radiology results. - EKG Data EKG attestation: Yes I reviewed and interpreted this EKG. Disposition Pt seen by CARPET INSTALLATION SPECIALIST/PA only: No (Formulator) Clinical Impression: Wound dehiscence, surgical Qualifiers: Encounter type: initial encounter Qualified Code(s): T81.31XA - Disruption of external operation (surgical) wound, not elsewhere classified, initial encounter Painful total knee replacement Qualifiers: Encounter type: initial encounter Laterality: right Qualified Code(s): T84.84XA - Pain due to internal orthopedic prosthetic devices, implants and grafts, initial encounter; Z96.651 - Presence of right artificial knee joint Disposition: Xfer As Inpt ([facility]) Condition: Good Instructions: Precautions after Total Joint Replacement Surgery (ED) Referrals: J Luis Rodriguez MD [Primary Care Provider] - Time of Disposition: 11:37
--- NOTE | 2019-05-01 10:11 | XRay Report ---
CLINICAL INFORMATION: Preop COMPARISON: 06/20/2010 FINDINGS: Cardiomediastinal silhouette and pulmonary vessels are normal for technique. Lungs are clear. No effusions. IMPRESSION: Negative Interpreted and Authenticated by: Jovon Raymundo 05/01/19
[2019-05-01 10:40] LABS: Hematocrit 33.7 % (41.0-55.0); Hemoglobin 11.1 g/dL (13.5-16.5); Mean Corpuscular HGB Conc 32.9 g/dL (31.0-36.0); Mean Platelet Volume 9.1 fL (7.4-10.4); Platelet Count 210 K/mcL (140-440); RBC 3.66 M/mcL (4.50-5.90); Red Cell Distribution Width 17.6 % (11.5-14.5); WBC 8.9 K/mcL (4.5-11.0)
[2019-05-01 11:06] LABS: ALT/SGPT 7 U/l (0-40); AST/SGOT 16 U/l (0-37); Albumin 3.3 gm/dL (3.2-5.2); Albumin/Globulin Ratio 1.1 (1.0-2.3); Alkaline Phosphatase 57 U/L (39-117); Bilirubin,Total 0.6 mg/dL (0.0-1.0); Blood Urea Nitrogen 27 mg/dl (8-23); Calcium 8.7 mg/dl (8.6-10.4); Carbon Dioxide 24 mmol/L (22-30); Chloride 102 mmol/L (96-108); Glomerular Filtration Rate 57; Glucose 139 mg/dL (70-105)
--- NOTE | 2019-05-01 11:12 | XRay Report ---
CLINICAL INFORMATION: knee surgery COMPARISON: None. FINDINGS: The prostate is anatomically aligned. Small amount of methacrylate overlying posterior lateral tibiofemoral joint margin seen - as before. Small effusion present. No osseous abnormalities. IMPRESSION: Small effusion. Small amount of methacrylate along the posterior lateral tibiofemoral joint - uncertain significance Interpreted and Authenticated by: Jovon Raymundo 05/01/19
[2019-05-01 11:16] LABS: Anisocytosis 1+ (NONE SEEN); Lymphocytes % 19 % (15-49); Monocytes % (Manual) 3 % (1-12); Platelet Estimate NORMAL (NORMAL); RBC Morphology ABNORM (NORMAL); Segmented Neutrophils % 78 % (38-78)
[2019-05-01 11:49] LABS: Appearance,Urine CLEAR; Bilirubin,Urine NEG (NEG); Color,Urine YELLOW; Culture Indicated,Urine NO; Glucose,Urine (UA) NEGATIVE (NEG); Ketones,Urine NEG (NEG); Leukocyte Esterase,Urine NEG /uL (NEG); Nitrate,Urine NEG (NEG); Protein,Urine NEG (NEG); Specific Gravity,Urine 1.021 (1.000-1.035); Urine Blood NEG mg/dL (<0.03)
[2019-05-01] MEDS ORDERED: fentaNYL 100 MCG/2 ML VIAL IV ONE (13:09)
[2019-05-01] MEDS ORDERED: MIDAZOLAM 2 MG/2 ML VIAL ONE (13:09)
[2019-05-01] MEDS ORDERED: ESMOLOL 100 MG/10 ML VIAL IV ONE (13:09)
[2019-05-01] MEDS ORDERED: KETAMINE 10 MG/ML ML ONE (13:09)
[2019-05-01] MEDS ORDERED: ONDANSETRON 4 MG/2 ML VIAL ONE (13:09)
[2019-05-01] MEDS ORDERED: ceFAZolin 3 GM in DEXTROSE 5% IN WATER 50 ML IV SCH (13:15)
[2019-05-01] MEDS ORDERED: TOBRAMYCIN PER PHARMACY IV ONE (13:52)
[2019-05-01] MEDS ORDERED: TOBRAMYCIN SULFATE 1.2 GM VIAL TOPICAL ONE (13:52)
[2019-05-01] MEDS ORDERED: VANCOMYCIN 500 MG in 0.9 % SODIUM CHLORIDE 100 ML IV ONE (13:53)
[2019-05-01] MEDS ORDERED: VANCOMYCIN 500 MG VIAL TOPICAL ONE (13:53)
[2019-05-01] MEDS ORDERED: ACETAMINOPHEN 1,000 MG/100 ML BOTTLE IV ONE (13:56)
[2019-05-01] MEDS ORDERED: ONDANSETRON 4 MG/2 ML VIAL IV PRN ×4 (13:56→16:15)
[2019-05-01] MEDS ORDERED: IPRATROPIUM/ALBUTEROL 3 ML AMPUL.NEB NEB PRN (13:56)
[2019-05-01] MEDS ORDERED: MEPERIDINE 25 MG/ML SYRINGE IV PRN (13:56)
[2019-05-01] MEDS ORDERED: KETOROLAC 15 MG/ML VIAL IV PRN (13:56)
[2019-05-01] MEDS ORDERED: fentaNYL 100 MCG/2 ML VIAL IV PRN (13:56)
[2019-05-01] MEDS ORDERED: METHOCARBAMOL 1,000 MG/10 ML VIAL IV PRN (13:56)
[2019-05-01] MEDS ORDERED: LACTATED RINGERS 1,000 ML IV SCH (14:00)
--- NOTE | 2019-05-01 14:11 | Internal Med History&Physical ---
Medical - H&P: [facility] Patient information: Note initiated : 05/01/19 at 2:08 pm Service Date, if different from initiated Date: [] Patient: Jovon Padilla 79 y/o M admitted on for lower extremity injury. Chief Complaint: [] Chief complaint: Fall with wound dehiscence History of present illness: Mr. Padilla is a 79 year old M who underwent right total knee arthroplasty on 04/28 and developed intraoperative A. fib RVR. Shortly thereafter patient was discharged in stable state. He sustained a fall at home while getting off the couch and again while stepping down the stair Not realizing he dehisced his wound. He was evaluated at physical therapy today and was directed to the ER for further evaluation of right knee injury with wound dehiscence. Initial work-up in the ER was essentially unremarkable except for dehisced right knee incision site along with heart rate around 110-130 irregular, orthopedics was consulted and patient was taken to the ER for operative intervention. Patient tolerated the surgery fairly well. Postoperatively hospitalist service is consulted as patient was noted to be in A. fib with the RVR in the immediate postoperative phase. Patient was seen during the postoperative phase in stable state. He was able to endorse history as above. He denies lightheadedness dizziness. He does endorse to lower extremity swelling but has not taken his Lasix over the last couple of days to avoid frequent trips to the bathroom. He denies chest pain, cough, fever, chills. Denies diarrhea dysuria or bloody stool. Review of systems 10 point review system was performed and is negative except was discussed above Medical - H&P: PM Medical history: Past medical history: Hypertension hyperlipidemia GERD COPD arrhythmia NOS Past surgical history: Left knee appendectomy Family: Mother and father both had cancer Social history: Patient quit smoking 10 months ago and lives with Has 1 mixed drink at night Ambulate with cane Smoking status: Former smoker (Quit smoking 10 months ago) Medical - H&P: Meds Home Medications Medication Instructions Recorded Confirmed Type Ferrous Sulfate [Feosol] 650 mg PO DAILY 04/22/19 05/01/19 History Furosemide [Lasix] 80 mg PO DAILY 04/22/19 05/01/19 History Lisinopril [Zestril] 20 mg PO DAILY 04/22/19 05/01/19 History Lovastatin 40 mg PO DAILY 04/22/19 05/01/19 History Ranitidine HCl [Acid Professional Services Consultant] 150 mg PO DAILY 04/22/19 05/01/19 History Verapamil [Calan Sr] 240 mg PO DAILY 04/22/19 05/01/19 History Vit A,C & E/Lutein/Minerals 1 tab PO DAILY 04/22/19 05/01/19 History [Ocuvite] Vitamin D3 5,000 unit PO DAILY 04/22/19 05/01/19 History Aspirin [Children's Aspirin] 81 mg PO BID 30 Days #60 tab.chew 04/29/19 05/01/19 Rx HYDROcodone/APAP 10/325MG [[place] 1 - 2 tab PO Q4HP PRN #60 tab 04/29/19 05/01/19 Rx 10-325Mg] Allergies Allergy/AdvReac Type Severity Reaction Status Date / Time No Known Drug Allergies Allergy Unverified 04/22/19 13:05 Medical - H&P: Exam - Constitutional Vitals: Temp Pulse Resp BP Pulse Ox 97.0 F 77 18 105/74 97 05/01/19 12:18 05/01/19 12:18 05/01/19 12:18 05/01/19 12:18 05/01/19 12:18 General appearance: morbidly obese Exam: Alert oriented Head normocephalic Neck no lymph apathy Eye movement symmetrical Oral cavity dry S1-S2 irregular rhythm, ESM grade 1 Diminished breath sounds bases with late inspiratory crackles Abdomen pendulous soft Right lower extremity knee covered in postoperative dressing, bilateral lower extremity lymphedema pitting extending up to the knee Psych alert cooperative Neuro nonfocal Skin no suspicious lesion Medical - H&P: Reslt - Labs CBC & Chem 7: 05/01/19 09:55 05/01/19 09:55 Labs: Short CBC 05/01/19 Range/Units 09:55 WBC 8.9 (4.5-11.0) K/mcL Hgb 11.1 L (13.5-16.5) g/dL Hct 33.7 L (41.0-55.0) % Plt Count 210 (140-440) K/mcL BMP 05/01/19 09:55 Sodium 138 Potassium 4.6 Chloride 102 Carbon Dioxide 24 BUN 27 H Creatinine 1.2 Glucose 139 H Calcium 8.7 Liver Function 05/01/19 Range/Units 09:55 Total Bilirubin 0.6 (0.0-1.0) mg/dL AST 16 (0-37) U/l ALT 7 (0-40) U/l Alkaline Phosphatase 57 (39-117) U/L Albumin 3.3 (3.2-5.2) gm/dL Urine 05/01/19 Range/Units 10:49 Urine Color Yellow Urine Appearance Clear Urine pH 6.0 (5.0-9.0) Ur Specific [place] 1.021 (1.000-1.035) Urine Protein Neg (NEG) mg/dL Urine Glucose (UA) Negative (NEG) mg/dL Medical - H&P: A/P (1) Atrial fibrillation with RVR Current visit: Yes Status: Acute * History of paroxysmal atrial fibrillation now with postoperative RVR-continue rate control measures on verapamil/IV beta-latricia. Chads score 3 not on anticoagulation. patient follows up with [place] cardiology Dr. Omari Melendez and is currently on aspirin for CVA prophylaxis. * Right TKA with wound dehiscence status post operative intervention. Postoperative management per surgery. * Postoperative pain management on as needed opioids * History of hypertension-continue XIN inhibitor/calcium latricia * Bilateral lower extremity lymphedema continue diuresis. Stop IV crystalloids * Hyperlipidemia -continues statin * Iron deficiency anemia * GERD continue ranitidine * COPD continue bronchodilators as needed * Prophylaxis per orthopedics Plan * Telemetry admit * Continue diuresis * Rate control measures * pain management/postop care as per orthopedics * Pre-existing well condition management on home meds
--- NOTE | 2019-05-01 14:33 | Brief Operative Note ---
Date of procedure: 05/01/19 Pre-op diagnosis: right knee wound dehiscence s/p tka Post-op diagnosis: same Procedure: right knee irrigation and debridement, liner exchange, antibiotic bead placement Grafts/Implants: Yes Anesthesia: spinal Complications: none Surgeon: Jovon Coleman Estimated blood loss (cc): 100 Tourniquet Time (Minutes): 18 Specimens Removed/Pathology: none sent Condition: stable Disposition: PACU
[2019-05-01] MEDS ORDERED: TRANEXAMIC ACID 1,000 MG/10 ML VIAL IV SCH (14:35)
[2019-05-01] MEDS ORDERED: POLYETHYLENE GLYCOL 3350 17 GM PACKET PO PRN ×3 (14:35→16:15)
[2019-05-01] MEDS ORDERED: BISACODYL 10 MG SUPP.RECT PR PRN ×2 (14:35→16:15)
[2019-05-01] MEDS ORDERED: FLEETS ADULT ENEMA PR PRN ×2 (14:35→16:15)
[2019-05-01] MEDS ORDERED: ACETAMINOPHEN 325 MG TABLET PO PRN ×3 (14:35→16:15)
[2019-05-01] MEDS ORDERED: ONDANSETRON 4 MG ODT TABLET SL PRN ×2 (14:35→16:15)
[2019-05-01] MEDS ORDERED: HYDROcodone/APAP 10/325MG TABLET PO PRN (14:35)
[2019-05-01] MEDS ORDERED: MAGNESIUM HYDROXIDE 30 ML ORAL.SUSP PO PRN ×3 (14:35→16:15)
[2019-05-01] MEDS ORDERED: METHOCARBAMOL 750 MG TABLET PO PRN ×2 (14:35→16:15)
[2019-05-01] MEDS ORDERED: BENZOCAINE/MENTHOL 1 LOZENGE PO PRN ×2 (14:35→16:15)
--- NOTE | 2019-05-01 14:35 | Discharge Summary ---
Ortho Discharge - TKA - Patient Instructions Diet: Regular Diet Activity: activity as tolerated, ambulate with assistive device, weight bearing as tolerated Total Knee Protocol: For Total Knee: Start ROM MYNOR with stationary bike or rocking chair. Work on gaining full extension of knee. Posterior dislocation precautions provided. Hip abductor strengthening and gait training instructions provided. Apply Cryocuff as instructed. Dressing Care: May shower in 2 days Patient Education: Precautions after Total Joint Replacement Surgery (ED) - Follow Up Plan Follow Up Appointments: J Luis Rodriguez MD [Primary Care Provider] - Disposition: Xfer SNF Prognosis: Good Rehab Potential: Good I certify that the patient requires SNF services: Yes Overall status at discharge: patient is progressing back to baseline
[2019-05-01] MEDS ORDERED: 0.9 % SODIUM CHLORIDE 1,000 ML IV SCH ×2 (14:45→16:15)
[2019-05-01] MEDS ORDERED: FUROSEMIDE 40 MG/4 ML VIAL IV SCH (16:15)
[2019-05-01] MEDS ORDERED: MAGNESIUM SULFATE 2 GM/50 ML BAG IV PRN (16:15)
[2019-05-01] MEDS ORDERED: ACETAMINOPHEN 1,000 MG/100 ML BOTTLE IV PRN (16:15)
[2019-05-01] MEDS ORDERED: POTASSIUM CHLORIDE 20 MEQ PACKET PO PRN (16:15)
[2019-05-01] MEDS ORDERED: VANCOMYCIN PER PHARMACY IV SCH (16:41)
[2019-05-01] MEDS: VANCOMYCIN 1,500 MG in 0.9 % SODIUM CHLORIDE 500 ML IV SCH (17:20)
[2019-05-01] MEDS: THIAMINE 100 MG TABLET PO SCH (17:26)
[2019-05-01] MEDS: ASPIRIN 81 MG TAB.CHEW PO SCH (20:17)
[2019-05-01] MEDS: DOCUSATE SODIUM 100 MG CAPSULE PO SCH (20:18)
[2019-05-01] MEDS: CYANOCOBALAMIN (VITAMIN B-12) 500 MCG TABLET PO SCH (20:18)
[2019-05-01] MEDS ORDERED: SENNOSIDES 1 TABLET PO SCH ×2 (21:00)
[2019-05-01] MEDS ORDERED: DOCUSATE SODIUM 100 MG CAPSULE PO SCH ×2 (21:00)
[2019-05-01] MEDS ORDERED: SENNOSIDES/DOCUSATE SODIUM 1 TAB TABLET PO SCH (21:00)
[2019-05-01] MEDS ORDERED: traZODone HCL 50 MG TABLET PO PRN (21:00)
[2019-05-01] MEDS ORDERED: HEPARIN 5,000 UNIT/ML VIAL SQ SCH (21:00)
[2019-05-01] MEDS ORDERED: ASPIRIN 81 MG TAB.CHEW PO SCH (21:00)
[2019-05-01] MEDS ORDERED: ASPIRIN 325 MG ENTERIC COATED TABLET PO SCH (21:00)
[2019-05-01] MEDS ORDERED: ceFAZolin 1 GM VIAL IV SCH (21:30)
[2019-05-01] MEDS ORDERED: 0.9 % SODIUM CHLORIDE 10 ML SYRINGE IV SCH ×2 (22:00)
[2019-05-01] MEDS: HYDROcodone/APAP 10/325MG TABLET PO PRN (22:42)
[2019-05-01] MEDS: ceFAZolin 1 GM VIAL IV SCH (22:43)
[2019-05-01] MEDS: 0.9 % SODIUM CHLORIDE 10 ML SYRINGE IV SCH (22:43)
[2019-05-01] MEDS: FUROSEMIDE 20 MG/2 ML VIAL IV SCH (22:46)
[2019-05-02] MEDS: ceFAZolin 1 GM VIAL IV SCH ×3 (05:16→21:05)
[2019-05-02] MEDS: 0.9 % SODIUM CHLORIDE 10 ML SYRINGE IV SCH ×3 (05:16→21:05)
[2019-05-02] MEDS: FUROSEMIDE 20 MG/2 ML VIAL IV SCH ×2 (05:16→21:05)
[2019-05-02] MEDS: HYDROcodone/APAP 10/325MG TABLET PO PRN ×4 (05:24→22:14)
[2019-05-02 06:20] LABS: Hematocrit 33.8 % (41.0-55.0); Hemoglobin 11.1 g/dL (13.5-16.5); Mean Cell Volume 93.4 fL (80.0-100.0); Mean Corpuscular HGB Conc 32.8 g/dL (31.0-36.0); Mean Platelet Volume 9.1 fL (7.4-10.4); Platelet Count 227 K/mcL (140-440); RBC 3.62 M/mcL (4.50-5.90); Red Cell Distribution Width 17.4 % (11.5-14.5); WBC 8.5 K/mcL (4.5-11.0)
[2019-05-02 06:33] LABS: ALT/SGPT < 5 U/l (0-40); AST/SGOT 11 U/l (0-37); Alkaline Phosphatase 58 U/L (39-117); Bilirubin,Direct < 0.2 mg/dL (0.0-0.3); Bilirubin,Total 0.5 mg/dL (0.0-1.0); Blood Urea Nitrogen 21 mg/dl (8-23); Calcium 9.1 mg/dl (8.6-10.4); Carbon Dioxide 26 mmol/L (22-30); Chloride 101 mmol/L (96-108); Globulin 2.9 gm/dL (2.2-3.7); Glomerular Filtration Rate 57; Glucose 157 mg/dL (70-105); Lactate Dehydrogenase 206 U/L (94-250); Phosphorous 2.9 mg/dL (2.7-4.5); Triglycerides 141 mg/dl (<150); Uric Acid 9.4 mg/dL (2.5-8.0)
[2019-05-02] MEDS: VANCOMYCIN 1,500 MG in 0.9 % SODIUM CHLORIDE 500 ML IV SCH ×2 (06:49→21:04)
[2019-05-02] MEDS: DOCUSATE SODIUM 100 MG CAPSULE PO SCH ×2 (08:13→21:04)
[2019-05-02] MEDS: CYANOCOBALAMIN (VITAMIN B-12) 500 MCG TABLET PO SCH ×2 (08:13→21:05)
[2019-05-02] MEDS: THIAMINE 100 MG TABLET PO SCH (08:14)
[2019-05-02] MEDS: ASPIRIN 81 MG TAB.CHEW PO SCH ×2 (08:14→21:05)
[2019-05-02 08:47] LABS: Anisocytosis 1+ (NONE SEEN); Eosinophils % (Manual) 2 % (0-7); Lymphocytes % 13 % (15-49); Monocytes % (Manual) 4 % (1-12); Platelet Estimate NORMAL (NORMAL); RBC Morphology ABNORM (NORMAL); Segmented Neutrophils % 81 % (38-78)
[2019-05-02] MEDS ORDERED: ATORVASTATIN 20 MG TABLET PO SCH (09:00)
[2019-05-02] MEDS ORDERED: LISINOPRIL 20 MG TABLET PO SCH (09:00)
[2019-05-02] MEDS ORDERED: MULTIVIT,THER IRON,CA,FA & MIN 1 TABLET PO SCH (09:00)
[2019-05-02] MEDS ORDERED: VERAPAMIL 120 MG TAB.XL.24H PO SCH (09:00)
[2019-05-02] MEDS ORDERED: FUROSEMIDE 40 MG TABLET PO SCH (09:00)
[2019-05-02] MEDS ORDERED: FAMOTIDINE 20 MG TABLET PO SCH (09:00)
[2019-05-02] MEDS ORDERED: FOLIC ACID 1 MG TABLET PO SCH (09:00)
[2019-05-02] MEDS ORDERED: THIAMINE 100 MG in 0.9 % SODIUM CHLORIDE 50 ML IV SCH (09:00)
--- NOTE | 2019-05-02 10:22 | Orthopedic Progress Note ---
Orthopedics - Auxillary Note - Subjective Patient Information: Note initiated : 05/02/19 at 10:21 am Service Date, if different from initiated Date: [] Patient: Jovon Padilla 79 y/o M admitted on 05/01/19 for lower extremity injury. Chief Complaint: Mild R knee pain bandages c/d/i nvi-distal Vital Signs Temp Pulse Pulse Resp BP BP BP 05/02/19 10:00 115 H 05/02/19 06:53 115 H 24 H 05/02/19 06:44 97.8 F 24 H 115/69 05/02/19 02:55 99 F 115 H 18 124/66 05/01/19 23:53 97.6 F 117 H 24 H 166/84 05/01/19 19:25 98.6 F 117 H 24 H 140/80 05/01/19 18:14 115 H 05/01/19 17:12 115 H 110/59 05/01/19 16:42 118 H 115/60 05/01/19 16:28 62 110/64 05/01/19 16:12 116 H 121/53 05/01/19 16:06 124 H 107/78 05/01/19 15:42 120 H 118/74 05/01/19 15:32 109 H 124/73 05/01/19 15:20 97.5 F 05/01/19 15:18 109 H 117/71 05/01/19 15:02 124 H 113/68 05/01/19 15:00 97.5 F 118 H 19 120/80 05/01/19 14:50 97.7 F 114 H 15 122/70 05/01/19 14:45 118 H 19 120/80 05/01/19 14:40 117 H 18 125/81 05/01/19 14:35 97.5 F 109 H 16 123/68 05/01/19 12:18 97.0 F 77 18 105/74 05/01/19 11:47 105/74 05/01/19 11:32 118/72 05/01/19 11:18 121/71 05/01/19 11:17 77 05/01/19 10:44 111 H 05/01/19 10:33 134/65 Pulse Ox 05/02/19 10:00 05/02/19 06:53 94 05/02/19 06:44 94 08/03/19 02:55 91 05/01/19 23:53 93 05/01/19 19:25 94 05/01/19 18:14 05/01/19 17:12 94 05/01/19 16:42 90 05/01/19 16:28 90 05/01/19 16:12 97 05/01/19 16:06 90 05/01/19 15:42 92 05/01/19 15:32 95 05/01/19 15:20 05/01/19 15:18 94 05/01/19 15:02 95 05/01/19 15:00 97 05/01/19 14:50 97 05/01/19 14:45 97 05/01/19 14:40 95 05/01/19 14:35 97 05/01/19 12:18 97 05/01/19 11:47 05/01/19 11:32 97 05/01/19 11:18 95 05/01/19 11:17 95 05/01/19 10:44 96 05/01/19 10:33 Intake and Output 05/01/19 05/02/19 05/02/19 21:59 05:59 13:59 Intake Total 1373 118 500 Output Total 475 876 Balance 898 -758 500 Intake: IV 773 500 Sodium Chloride 0.9% 1,000 ml @ 73 125 mls/hr IV .Q8H [facility]ERY Rx#: [id number] Lactated Ringers 1,000 ml @ 20 600 mls/hr IV .Q24H [facility] Rx#: [id number] Vancomycin 1,500 mg In Sodium 500 Chloride 0.9% 500 ml @ 333.3 mls/hr IV Q12H [facility] Rx#: [id number] Oral 600 118 Output: Urine Catheter Amount 450 Void Amount 25 875 # of times incontinent of urine 1 Other: Meal Dinner Nourishment/Supplement Percent of Meal Consumed 100% 100% Nourishment/Supplement name vanilla ice cream Urine Appearance Clear Clear Clear Urine Color Bright Yellow Pale Pale Urine Odor Normal Normal Normal # Voids 1 Weight 257 lb Laboratory Results - last 24 hr 05/01/19 05/01/19 05/01/19 09:55 09:55 10:49 WBC 8.9 RBC 3.66 L Hgb 11.1 L Hct 33.7 L MCV 92.0 MCH 30.3 MCHC 32.9 RDW 17.6 H Plt Count 210 MPV 9.1 Total Counted 100 Seg Neutrophils % 78 Band Neutrophils % Lymphocytes % 19 Monocytes % (Manual) 3 Eosinophils % (Manual) Platelet Estimate Normal RBC Morphology Abnorm A Anisocytosis 1+ A Sodium 138 Potassium 4.6 Chloride 102 Carbon Dioxide 24 Anion Gap 12.0 BUN 27 H Creatinine 1.2 GFR Calculation 57 Glucose 139 H Uric Acid Calcium 8.7 Phosphorus Magnesium Total Bilirubin 0.6 Direct Bilirubin GGT AST 16 ALT 7 Alkaline Phosphatase 57 Lactate Dehydrogenase Total Protein 6.3 Albumin 3.3 Globulin 3.0 Albumin/Globulin Ratio 1.1 Triglycerides Urine Color Yellow Urine Appearance Clear Urine pH 6.0 Ur Specific [place] 1.021 Urine Protein Neg Urine Glucose (UA) Negative Urine Ketones Neg Urine Occult Blood Neg Urine Nitrate Neg Urine Bilirubin Neg Urine Urobilinogen 2.0 A Ur Leukocyte Esterase Neg Ur Culture Indicated? No 05/02/19 05/02/19 04:48 04:48 WBC 8.5 RBC 3.62 L Hgb 11.1 L Hct 33.8 L MCV 93.4 MCH 30.7 MCHC 32.8 RDW 17.4 H Plt Count 227 MPV 9.1 Total Counted 100 Seg Neutrophils % 81 H Band Neutrophils % Not Reportable Lymphocytes % 13 L Monocytes % (Manual) 4 Eosinophils % (Manual) 2 Platelet Estimate Normal RBC Morphology Abnorm A Anisocytosis 1+ A Sodium 138 Potassium 4.5 Chloride 101 Carbon Dioxide 26 Anion Gap 11.0 BUN 21 Creatinine 1.2 GFR Calculation 57 Glucose 157 H Uric Acid 9.4 H Calcium 9.1 Phosphorus 2.9 Magnesium 1.8 Total Bilirubin 0.5 Direct Bilirubin < 0.2 GGT 17 AST 11 ALT < 5 Alkaline Phosphatase 58 Lactate Dehydrogenase 206 Total Protein 5.9 Albumin 3.0 L Globulin 2.9 Albumin/Globulin Ratio 1.0 Triglycerides 141 Urine Color Urine Appearance Urine pH Ur Specific [place] Urine Protein Urine Glucose (UA) Urine Ketones Urine Occult Blood Urine Nitrate Urine Bilirubin Urine Urobilinogen Ur Leukocyte Esterase Ur Culture Indicated? s/p R knee I&D s/p fall with dehiscence of TKA incision. mobilize with PT d/c to [facility] Saturday05/04/19
[2019-05-02] MEDS ORDERED: ACETAMINOPHEN 1,000 MG/100 ML BOTTLE IV PRN (10:57)
[2019-05-02] MEDS ORDERED: POTASSIUM CHLORIDE 20 MEQ PACKET PO PRN (10:57)
[2019-05-02] MEDS ORDERED: ONDANSETRON 4 MG/2 ML VIAL IV PRN (10:57)
[2019-05-02] MEDS ORDERED: BISACODYL 10 MG SUPP.RECT PR PRN (10:57)
[2019-05-02] MEDS ORDERED: traZODone HCL 50 MG TABLET PO PRN (10:57)
[2019-05-02] MEDS ORDERED: ONDANSETRON 4 MG ODT TABLET SL PRN (10:57)
[2019-05-02] MEDS ORDERED: MAGNESIUM SULFATE 2 GM/50 ML BAG IV PRN (10:57)
[2019-05-02] MEDS ORDERED: BENZOCAINE/MENTHOL 1 LOZENGE PO PRN (10:57)
[2019-05-02] MEDS ORDERED: ACETAMINOPHEN 325 MG TABLET PO PRN (10:57)
[2019-05-02] MEDS ORDERED: VANCOMYCIN PER PHARMACY IV SCH (10:57)
[2019-05-02] MEDS ORDERED: METHOCARBAMOL 750 MG TABLET PO PRN (10:57)
[2019-05-02] MEDS ORDERED: POLYETHYLENE GLYCOL 3350 17 GM PACKET PO PRN (10:57)
[2019-05-02] MEDS ORDERED: FLEETS ADULT ENEMA PR PRN (10:57)
[2019-05-02] MEDS: METOPROLOL TARTRATE 5 MG/5 ML VIAL IV SCH (11:01)
--- NOTE | 2019-05-02 11:54 | Internal Med Progress Note ---
Medical - PN: Subj Patient information: Note initiated : 05/02/19 at 11:49 am Service Date, if different from initiated Date: [] Patient: Jovon Padilla 79 y/o M admitted on 05/01/19 for lower extremity injury. Chief Complaint: [] Interval history: Mr. Padilla is a 79 year old M who underwent right total knee arthroplasty on 04/28 and developed intraoperative A. fib RVR. Shortly thereafter patient was discharged in stable state. He sustained a fall at home while getting off the couch and again while stepping down the stair Not realizing he dehisced his wound. He was evaluated at physical therapy today and was directed to the ER for further evaluation of right knee injury with wound dehiscence. Initial work-up in the ER was essentially unremarkable except for dehisced right knee incision site along with heart rate around 110-130 irregular, orthopedics was consulted and patient was taken to the ER for operative intervention. Patient tolerated the surgery fairly well. Postoperatively hospitalist service is consulted as patient was noted to be in A. fib with the RVR in the immediate postoperative phase. Patient was seen during the postoperative phase in stable state. He was able to endorse history as above. He denies lightheadedness dizziness. He does endorse to lower extremity swelling but has not taken his Lasix over the last couple of days to avoid frequent trips to the bathroom. He denies chest pain, cough, fever, chills. Denies diarrhea dysuria or bloody stool. 05/02-patient doing well. Heart rate variable between 110-130 however patient confirms that he always stays around that level. He follows up with [place] [facility] Dr. Omari Melendez. Currently on verapamil at home dose. Denies chest pain lightheadedness or dizziness. Ongoing physical therapy. DC telemetry and transfer to medical floor today. - Constitutional Vitals: Vital Signs Temp Pulse Resp BP Pulse Ox 97.8 F 115 H 24 H 115/69 94 05/02/19 06:44 05/02/19 10:00 05/02/19 06:53 05/02/19 06:44 05/02/19 06:53 Period Temp Pulse Resp BP Sys/Donald Pulse Ox Last 24 Hr 97.0 F-99 F 62-124 15-24 105-166/53-84 90-97 Intake and Output 05/01/19 05/02/19 05/02/19 21:59 05:59 13:59 Intake Total 1373 118 500 Output Total 475 876 300 Balance 898 -758 200 Weight 257 lb Intake & Output: Intake & Output 05/01/19 05/02/19 05/02/19 21:59 05:59 13:59 Intake Total 1373 118 500 Output Total 475 876 300 Balance 898 -758 200 Weight 257 lb Intake: IV 773 500 Sodium Chloride 0.9% 1,000 ml @ 73 125 mls/hr IV .Q8H [facility] Rx#: [id number] Lactated Ringers 1,000 ml @ 20 600 mls/hr IV .Q24H [facility] Rx#: [id number] Vancomycin 1,500 mg In Sodium 500 Chloride 0.9% 500 ml @ 333.3 mls/hr IV Q12H [facility] Rx#: [id number] Oral 600 118 Output: Urine Catheter Amount 450 Void Amount 25 875 300 # of times incontinent of urine 1 Other: Meal Dinner Nourishment/Supplement Percent of Meal Consumed 100% 100% Nourishment/Supplement name vanilla ice cream Urine Appearance Clear Clear Clear Urine Color Bright Yellow Pale Pale Urine Odor Normal Normal Normal # Voids 2 General appearance: no acute distress Exam: Alert oriented Nonlabored breathing Telemetry rate variable from 107-130. No anxiety No significant postoperative pain or swelling Medical - PN: Obj Da - Labs CBC & Chem 7: 05/02/19 04:48 05/02/19 04:48 Labs: Abnormal Lab Results 05/02/19 05/02/19 05/01/19 04:48 04:48 10:49 RBC 3.62 L Hgb 11.1 L Hct 33.8 L RDW 17.4 H Seg Neutrophils % 81 H Lymphocytes % 13 L RBC Morphology Abnorm A Anisocytosis 1+ A BUN Glucose 157 H Uric Acid 9.4 H Albumin 3.0 L Urine Urobilinogen 2.0 A 05/01/19 05/01/19 09:55 09:55 RBC 3.66 L Hgb 11.1 L Hct 33.7 L RDW 17.6 H Seg Neutrophils % Lymphocytes % RBC Morphology Abnorm A Anisocytosis 1+ A BUN 27 H Glucose 139 H Uric Acid Albumin Urine Urobilinogen Meds: Medications Acetaminophen (Tylenol) 650 mg PO Q6HP PRN PRN Reason: PAIN/FEVER > 101 Hydrocodone Bitart/Acetaminophen ([place] 10/325mg) 0 tab PO Q4HP PRN PRN Reason: PAIN LEVEL 3-6 Aspirin (Aspirin) 81 mg PO BID [facility] Atorvastatin Calcium (Lipitor) 10 mg PO DAILY [facility] Bisacodyl (Dulcolax) 10 mg RI Q2-3DAYS PRN PRN Reason: Constipation Cefazolin Sodium (Ancef) 2 gm IV Q8H [facility] Stop: 05/08/19 13:59 Cyanocobalamin (Vitamin B-12) 1,000 mcg PO BID [facility] Stop: 05/06/19 09:01 Docusate Sodium (Colace) 100 mg PO BID [facility] Famotidine (Pepcid) 40 mg PO DAILY [facility] Folic Acid (Folic Acid) 1 mg PO DAILY [facility] Furosemide (Lasix) 20 mg IV Q8 [facility] Magnesium Sulfate (Magnesium Sulfate) 2 gm in 50 mls @ 50 mls/hr IV UD PRN PRN Reason: MG = or < 1.7 Acetaminophen (Ofirmev) 1,000 mg in 100 mls @ 200 mls/hr IV Q6HP PRN PRN Reason: PAIN/FEVER > 101 Vancomycin HCl 1,500 mg/ (Sodium Chloride) 500 mls @ 333.3 mls/hr IV Q12H [facility] Iron Carb/Multivit/[place]/Folic Acid (Multivitamin W/Minerals) 1 tab PO DAILY [facility] Lisinopril (Zestril) 20 mg PO DAILY [facility] Magnesium Hydroxide (Milk Of Magnesia) 30 ml PO BIDP PRN PRN Reason: Constipation Methocarbamol (Robaxin) 750 mg PO Q6HP PRN PRN Reason: Muscle Spasm Morphine Sulfate (Morphine) 0 mg IV Q1HP PRN PRN Reason: PAIN LEVEL > 6 Ondansetron HCl (Zofran Odt) 4 mg SL Q4HP PRN PRN Reason: Nausea And Vomiting Ondansetron HCl (Zofran) 4 mg IV Q4HP PRN PRN Reason: Nausea And Vomiting Polyethylene Glycol (Miralax) 17 gm PO DAILYP PRN PRN Reason: Constipation Potassium Chloride (Klor-Con) 40 meq PO DAILYP PRN PRN Reason: K+ < 3.5 Senna (Senokot) 2 tab PO HS [facility] Sodium Biphosphate/Sodium Phosphate (Fleets Adult) 1 dose RI Q3-4DAYS PRN PRN Reason: Constipation Sodium Chloride (Saline Flush) 10 ml IV Q8 [facility] Thiamine HCl (Vitamin B1) 100 mg PO DAILY [facility] Stop: 05/03/19 09:01 Throat Lozenges (Cepacol) 1 lozenge PO PRN PRN PRN Reason: Sore Throat Trazodone HCl (Desyrel) 50 mg PO HSP PRN PRN Reason: Insomnia Vancomycin HCl (Vancomycin Per Pharmacy) 1 order IV UD [facility]; Protocol Verapamil HCl (Calan Sr) 240 mg PO DAILY [facility] Medical - PN: A/P - Time Spent With Patient Total time spent is greater than 50% in coordination of care (as documented) at patient's floor/unit and/or counseling patient: 25 - 35 minutes (1) Atrial fibrillation with RVR Status: Acute Assessment and plan: * History of paroxysmal atrial fibrillation -now rate controlled. Continue verapamil. Patient advised to follow-up with [place] [facility] in 2 weeks on discharge. Patient not on anticoagulation. On aspirin 81 daily * Right TKA wound dehiscence with exposed hardware-status post surgical intervention. Continue empiric vancomycin until cultures available . * Postoperative pain management well controlled on as needed opioids * History of hypertension-continue XIN inhibitor/calcium latricia * Bilateral lower extremity lymphedema continue diuresis. * Hyperlipidemia -continues statin * Iron deficiency anemia. Stable * GERD continue ranitidine * COPD continue bronchodilators as needed * Prophylaxis per orthopedics Plan * Transfer to medical floor * Empiric vancomycin until cultures available from Intra-Op wound specimen * Continue gentle diuresis * Rate control measures * pain management/postop care as per orthopedics * Pre-existing well condition management on home meds Current Visit: Yes Medical - PN: Qual - VTE Deep Vein Thrombosis/Pulmonary Embolism Present on Admission: No
[2019-05-02] MEDS ORDERED: FUROSEMIDE 20 MG/2 ML VIAL IV SCH (14:00)
[2019-05-02] MEDS: SENNOSIDES 1 TABLET PO SCH (21:05)
[2019-05-03] MEDS: HYDROcodone/APAP 10/325MG TABLET PO PRN ×4 (02:34→21:12)
[2019-05-03] MEDS: ceFAZolin 1 GM VIAL IV SCH ×3 (05:36→21:11)
[2019-05-03] MEDS: 0.9 % SODIUM CHLORIDE 10 ML SYRINGE IV SCH ×3 (05:36→21:12)
[2019-05-03 05:43] LABS: Hematocrit 31.4 % (41.0-55.0); Hemoglobin 10.3 g/dL (13.5-16.5); Mean Cell Volume 93.4 fL (80.0-100.0); Mean Corpuscular HGB Conc 32.8 g/dL (31.0-36.0); Mean Platelet Volume 8.9 fL (7.4-10.4); Platelet Count 231 K/mcL (140-440); RBC 3.36 M/mcL (4.50-5.90); Red Cell Distribution Width 17.4 % (11.5-14.5); WBC 7.2 K/mcL (4.5-11.0)
[2019-05-03 06:27] LABS: ALT/SGPT < 5 U/l (0-40); AST/SGOT 9 U/l (0-37); Alkaline Phosphatase 57 U/L (39-117); Bilirubin,Direct < 0.2 mg/dL (0.0-0.3); Bilirubin,Total 0.5 mg/dL (0.0-1.0); Blood Urea Nitrogen 19 mg/dl (8-23); Calcium 9.1 mg/dl (8.6-10.4); Carbon Dioxide 28 mmol/L (22-30); Chloride 99 mmol/L (96-108); Globulin 2.9 gm/dL (2.2-3.7); Glomerular Filtration Rate 63; Glucose 131 mg/dL (70-105); Lactate Dehydrogenase 218 U/L (94-250); Phosphorous 3.7 mg/dL (2.7-4.5); Triglycerides 115 mg/dl (<150)
[2019-05-03 07:58] LABS: Anisocytosis 1+ (NONE SEEN); Band Neutrophils % 1 % (0-10); Eosinophils % (Manual) 3 % (0-7); Lymphocytes % 16 % (15-49); Monocytes % (Manual) 10 % (1-12); Platelet Estimate NORMAL (NORMAL); Polychromasia FEW (NONE SEEN); RBC Morphology ABNORM (NORMAL); Segmented Neutrophils % 70 % (38-78)
[2019-05-03] MEDS: VERAPAMIL 120 MG TAB.XL.24H PO SCH (08:48)
[2019-05-03] MEDS: FOLIC ACID 1 MG TABLET PO SCH (08:48)
[2019-05-03] MEDS: LISINOPRIL 20 MG TABLET PO SCH (08:48)
[2019-05-03] MEDS: CYANOCOBALAMIN (VITAMIN B-12) 500 MCG TABLET PO SCH ×2 (08:48→21:14)
[2019-05-03] MEDS: ASPIRIN 81 MG TAB.CHEW PO SCH ×2 (08:49→21:12)
[2019-05-03] MEDS: ATORVASTATIN 20 MG TABLET PO SCH (08:49)
[2019-05-03] MEDS: FAMOTIDINE 20 MG TABLET PO SCH (08:49)
[2019-05-03] MEDS: MULTIVIT,THER IRON,CA,FA & MIN 1 TABLET PO SCH (08:50)
[2019-05-03] MEDS: FUROSEMIDE 20 MG/2 ML VIAL IV SCH ×2 (08:50→16:52)
[2019-05-03] MEDS: DOCUSATE SODIUM 100 MG CAPSULE PO SCH ×2 (08:50→21:12)
[2019-05-03] MEDS: MAGNESIUM HYDROXIDE 30 ML ORAL.SUSP PO PRN ×2 (08:54→21:09)
[2019-05-03] MEDS ORDERED: THIAMINE 100 MG TABLET PO SCH (09:00)
--- NOTE | 2019-05-03 10:11 | Orthopedic Progress Note ---
Orthopedics - Auxillary Note - Subjective Patient Information: Note initiated : 05/03/19 at 10:09 am Service Date, if different from initiated Date: [] Patient: Jovon Padilla 79 y/o M admitted on 05/01/19 for lower extremity injury. Chief Complaint: no c/o. Pt anxious to d/c to SNF and begin rehab. bandages c/d/i nvi-distal Vital Signs Temp Pulse Resp BP BP Pulse Ox 05/03/19 04:00 97.9 F 98 H 20 111/53 94 05/02/19 23:48 97.4 F 99 H 22 109/73 94 05/02/19 19:02 97.8 F 112 H 22 135/71 97 05/02/19 16:00 97.5 F 98 H 20 107/59 95 05/02/19 15:41 115 H 05/02/19 12:00 98.4 F 24 H 115/62 97 05/02/19 11:49 115 H Intake and Output 05/02/19 05/03/19 05/03/19 21:59 05:59 13:59 Intake Total 1240 1000 240 Balance 1240 1000 240 Intake: IV 500 Vancomycin 1,500 mg In Sodium 500 Chloride 0.9% 500 ml @ 333.3 mls/hr IV Q12H [facility] Rx#: [id number] Oral 640 500 240 GI Tube Flush 600 Other: Meal Dinner Breakfast Percent of Meal Consumed 100% 100% Feeding Ability Independent Urine Appearance Clear Urine Color Dark Yellow # Voids 2 2 Weight 278 lb 275 lb 6.4 oz Laboratory Results - last 24 hr 05/03/19 05/03/19 05/03/19 04:31 04:31 08:02 WBC 7.2 RBC 3.36 L Hgb 10.3 L Hct 31.4 L MCV 93.4 MCH 30.6 MCHC 32.8 RDW 17.4 H Plt Count 231 MPV 8.9 Total Counted 100 Seg Neutrophils % 70 Band Neutrophils % 1 Lymphocytes % 16 Monocytes % (Manual) 10 Eosinophils % (Manual) 3 Platelet Estimate Normal RBC Morphology Abnorm A Polychromasia Few A Anisocytosis 1+ A Sodium 137 Potassium 4.2 Chloride 99 Carbon Dioxide 28 Anion Gap 10.0 BUN 19 Creatinine 1.1 GFR Calculation 63 Glucose 131 H Uric Acid 9.0 H Calcium 9.1 Phosphorus 3.7 Magnesium 1.6 Total Bilirubin 0.5 Direct Bilirubin < 0.2 GGT 18 AST 9 ALT < 5 Alkaline Phosphatase 57 Lactate Dehydrogenase 218 Total Protein 5.9 Albumin 3.0 L Globulin 2.9 Albumin/Globulin Ratio 1.0 Triglycerides 115 Vancomycin Trough 18.6 2 days s/p R knee I&D s/p TKA who fell and dehisced his incision. mobilize with PT d/c to SNF 05/04/19
[2019-05-03] MEDS: VANCOMYCIN 1,500 MG in 0.9 % SODIUM CHLORIDE 500 ML IV SCH (10:37)
--- NOTE | 2019-05-03 11:58 | Internal Med Progress Note ---
Medical - PN: Subj Patient information: Note initiated : 05/03/19 at 11:56 am Service Date, if different from initiated Date: [] Patient: Jovon Padilla 79 y/o M admitted on 05/01/19 for lower extremity injury. Chief Complaint: [] Interval history: Mr. Padilla is a 79 year old M who underwent right total knee arthroplasty on 04/28 and developed intraoperative A. fib RVR. Shortly thereafter patient was discharged in stable state. He sustained a fall at home while getting off the couch and again while stepping down the stair Not realizing he dehisced his wound. He was evaluated at physical therapy today and was directed to the ER for further evaluation of right knee injury with wound dehiscence. Initial work-up in the ER was essentially unremarkable except for dehisced right knee incision site along with heart rate around 110-130 irregular, orthopedics was consulted and patient was taken to the ER for operative intervention. Patient tolerated the surgery fairly well. Postoperatively hospitalist service is consulted as patient was noted to be in A. fib with the RVR in the immediate postoperative phase. Patient was seen during the postoperative phase in stable state. He was able to endorse history as above. He denies lightheadedness dizziness. He does endorse to lower extremity swelling but has not taken his Lasix over the last couple of days to avoid frequent trips to the bathroom. He denies chest pain, cough, fever, chills. Denies diarrhea dysuria or bloody stool. 05/02-patient doing well. Heart rate variable between 110-130 however patient confirms that he always stays around that level. He follows up with [place] [facility] Dr. Omari Melendez. Currently on verapamil at home dose. Denies chest pain lightheadedness or dizziness. Ongoing physical therapy. DC telemetry and transfer to medical floor today. 05/03-patient doing better. No overnight events. No concerns per staff. Ambulating with max assistance along with PT and tolerating diet. Stable hemodynamics. Persistent A. fib but rate controlled around 90s. possible discharge soon once cleared by orthopedics. On empiric vancomycin in light of wound dehiscence and suspected surgical site contamination. Await cultures. Will likely de-escalate antibiotics in 24 hours - Constitutional Vitals: Vital Signs Temp Pulse Resp BP Pulse Ox 97.5 F 107 H 24 H 121/58 93 05/03/19 11:55 05/03/19 08:05 05/03/19 11:55 05/03/19 11:55 05/03/19 11:55 Period Temp Pulse Resp BP Sys/Donald Pulse Ox Last 24 Hr 97.4 F-98.4 F 98-115 20-24 107-135/53-73 93-97 Intake and Output 05/02/19 05/03/19 05/03/19 21:59 05:59 13:59 Intake Total 1240 1000 240 Balance 1240 1000 240 Weight 278 lb 275 lb 6.4 oz Intake & Output: Intake & Output 05/02/19 05/03/19 05/03/19 21:59 05:59 13:59 Intake Total 1240 1000 240 Balance 1240 1000 240 Weight 278 lb 275 lb 6.4 oz Intake: IV 500 Vancomycin 1,500 mg In Sodium 500 Chloride 0.9% 500 ml @ 333.3 mls/hr IV Q12H [facility] Rx#: [id number] Oral 640 500 240 GI Tube Flush 600 Other: Meal Dinner Breakfast Percent of Meal Consumed 100% 100% Feeding Ability Independent Urine Appearance Clear Urine Color Dark Yellow # Voids 2 2 1 # Bowel Movements 0 General appearance: no acute distress Exam: Alert oriented nonlabored breathing Much improved swelling right knee No anxiety nondistended abdomen Medical - PN: Obj Da - Labs CBC & Chem 7: 05/03/19 04:31 05/03/19 04:31 Labs: Abnormal Lab Results 05/03/19 05/03/19 05/02/19 04:31 04:31 04:48 RBC 3.36 L Hgb 10.3 L Hct 31.4 L RDW 17.4 H Seg Neutrophils % Lymphocytes % RBC Morphology Abnorm A Polychromasia Few A Anisocytosis 1+ A BUN Glucose 131 H 157 H Uric Acid 9.0 H 9.4 H Albumin 3.0 L 3.0 L Urine Urobilinogen 05/02/19 05/01/19 05/01/19 04:48 10:49 09:55 RBC 3.62 L Hgb 11.1 L Hct 33.8 L RDW 17.4 H Seg Neutrophils % 81 H Lymphocytes % 13 L RBC Morphology Abnorm A Polychromasia Anisocytosis 1+ A BUN 27 H Glucose 139 H Uric Acid Albumin Urine Urobilinogen 2.0 A 05/01/19 09:55 RBC 3.66 L Hgb 11.1 L Hct 33.7 L RDW 17.6 H Seg Neutrophils % Lymphocytes % RBC Morphology Abnorm A Polychromasia Anisocytosis 1+ A BUN Glucose Uric Acid Albumin Urine Urobilinogen Meds: Medications Acetaminophen (Tylenol) 650 mg PO Q6HP PRN PRN Reason: PAIN/FEVER > 101 Hydrocodone Bitart/Acetaminophen ([place] 10/325mg) 0 tab PO Q4HP PRN PRN Reason: PAIN LEVEL 3-6 Last Admin: 05/03/19 08:49 Dose: 1 tab Documented by: Aspirin (Aspirin) 81 mg PO BID [facility] Last Admin: 05/03/19 08:49 Dose: 81 mg Documented by: Atorvastatin Calcium (Lipitor) 10 mg PO DAILY [facility] Last Admin: 05/03/19 08:49 Dose: 10 mg Documented by: Bisacodyl (Dulcolax) 10 mg MO Q2-3DAYS PRN PRN Reason: Constipation Cefazolin Sodium (Ancef) 2 gm IV Q8H [facility] Stop: 05/08/19 13:59 Last Admin: 05/03/19 05:36 Dose: 2 gm Documented by: Cyanocobalamin (Vitamin B-12) 1,000 mcg PO BID [facility] Stop: 05/06/19 09:01 Last Admin: 05/03/19 08:48 Dose: 1,000 mcg Documented by: Docusate Sodium (Colace) 100 mg PO BID [facility] Last Admin: 05/03/19 08:50 Dose: 100 mg Documented by: Famotidine (Pepcid) 40 mg PO DAILY [facility] Last Admin: 05/03/19 08:49 Dose: 40 mg Documented by: Folic Acid (Folic Acid) 1 mg PO DAILY [facility] Last Admin: 05/03/19 08:48 Dose: 1 mg Documented by: Furosemide (Lasix) 20 mg IV BIDD [facility] Magnesium Sulfate (Magnesium Sulfate) 2 gm in 50 mls @ 50 mls/hr IV UD PRN PRN Reason: MG = or < 1.7 Acetaminophen (Ofirmev) 1,000 mg in 100 mls @ 200 mls/hr IV Q6HP PRN PRN Reason: PAIN/FEVER > 101 Vancomycin HCl 1,500 mg/ (Sodium Chloride) 500 mls @ 333.3 mls/hr IV Q24H [facility] Iron Carb/Multivit/[place]/Folic Acid (Multivitamin W/Minerals) 1 tab PO DAILY [facility] Last Admin: 05/03/19 08:50 Dose: 1 tab Documented by: Lisinopril (Zestril) 20 mg PO DAILY [facility] Last Admin: 05/03/19 08:48 Dose: 20 mg Documented by: Magnesium Hydroxide (Milk Of Magnesia) 30 ml PO BIDP PRN PRN Reason: Constipation Last Admin: 05/03/19 08:54 Dose: 30 ml Documented by: Methocarbamol (Robaxin) 750 mg PO Q6HP PRN PRN Reason: Muscle Spasm Morphine Sulfate (Morphine) 0 mg IV Q1HP PRN PRN Reason: PAIN LEVEL > 6 Ondansetron HCl (Zofran Odt) 4 mg SL Q4HP PRN PRN Reason: Nausea And Vomiting Ondansetron HCl (Zofran) 4 mg IV Q4HP PRN PRN Reason: Nausea And Vomiting Polyethylene Glycol (Miralax) 17 gm PO DAILYP PRN PRN Reason: Constipation Potassium Chloride (Klor-Con) 40 meq PO DAILYP PRN PRN Reason: K+ < 3.5 Senna (Senokot) 2 tab PO HS [facility] Last Admin: 05/02/19 21:05 Dose: 2 tab Documented by: Sodium Biphosphate/Sodium Phosphate (Fleets Adult) 1 dose MO Q3-4DAYS PRN PRN Reason: Constipation Sodium Chloride (Saline Flush) 10 ml IV Q8 [facility] Last Admin: 05/03/19 05:36 Dose: 10 ml Documented by: Throat Lozenges (Cepacol) 1 lozenge PO PRN PRN PRN Reason: Sore Throat Trazodone HCl (Desyrel) 50 mg PO HSP PRN PRN Reason: Insomnia Vancomycin HCl (Vancomycin Per Pharmacy) 1 order IV UD [facility]; Protocol Verapamil HCl (Calan Sr) 240 mg PO DAILY [facility] Last Admin: 05/03/19 08:48 Dose: 240 mg Documented by: Medical - PN: A/P - Time Spent With Patient Total time spent is greater than 50% in coordination of care (as documented) at patient's floor/unit and/or counseling patient: 15 - 24 minutes (1) Atrial fibrillation with RVR Status: Acute Assessment and plan: * Right TKA wound dehiscence with exposed hardware-status post surgical intervention. Continue empiric vancomycin. Cultures negative so far. Likely de-escalate in 24 hours. * History of paroxysmal atrial fibrillation -now rate controlled. Continue verapamil. Patient advised to follow-up with [place] [facility] in 2 weeks on discharge. Patient not on anticoagulation. On aspirin 81 daily * Postoperative pain management well controlled on as needed opioids. Continue PT OT * History of hypertension-continue XIN inhibitor/calcium latricia * Bilateral lower extremity lymphedema continue diuresis. * Hyperlipidemia -continues statin * Iron deficiency anemia. Stable * GERD continue ranitidine * COPD continue bronchodilators as needed * Prophylaxis per orthopedics Plan * Empiric vancomycin until cultures available from Intra-Op wound specimen, will likely de-escalate in 24 hours * Continue gentle diuresis * pain management/postop care as per orthopedics * Pre-existing well condition management on home meds * Discharge planning likely 24 hours Current Visit: Yes Medical - PN: Qual - VTE Deep Vein Thrombosis/Pulmonary Embolism Present on Admission: No
[2019-05-03] MEDS ORDERED: MAGNESIUM SULFATE 8.12 MEQ/2 ML VIAL ONE (17:30)
[2019-05-03] MEDS ORDERED: MAGNESIUM SULFATE 2 GM/50 ML BAG IV ONE (17:32)
[2019-05-03] MEDS: SENNOSIDES 1 TABLET PO SCH (21:11)
[2019-05-04 05:50] LABS: Hematocrit 32.2 % (41.0-55.0); Hemoglobin 10.6 g/dL (13.5-16.5); Mean Cell Volume 93.1 fL (80.0-100.0); Mean Corpuscular HGB Conc 32.9 g/dL (31.0-36.0); Mean Platelet Volume 8.6 fL (7.4-10.4); Platelet Count 258 K/mcL (140-440); RBC 3.46 M/mcL (4.50-5.90); Red Cell Distribution Width 17.5 % (11.5-14.5); WBC 6.7 K/mcL (4.5-11.0)
[2019-05-04] MEDS: ceFAZolin 1 GM VIAL IV SCH ×3 (06:00→21:39)
[2019-05-04] MEDS: 0.9 % SODIUM CHLORIDE 10 ML SYRINGE IV SCH ×3 (06:01→21:40)
[2019-05-04 06:17] LABS: ALT/SGPT < 5 U/l (0-40); AST/SGOT 9 U/l (0-37); Albumin 3.1 gm/dL (3.2-5.2); Alkaline Phosphatase 59 U/L (39-117); Bilirubin,Direct < 0.2 mg/dL (0.0-0.3); Bilirubin,Total 0.5 mg/dL (0.0-1.0); Blood Urea Nitrogen 18 mg/dl (8-23); Calcium 9.2 mg/dl (8.6-10.4); Carbon Dioxide 32 mmol/L (22-30); Chloride 97 mmol/L (96-108); Glomerular Filtration Rate 63; Glucose 121 mg/dL (70-105); Lactate Dehydrogenase 227 U/L (94-250); Phosphorous 3.6 mg/dL (2.7-4.5); Triglycerides 137 mg/dl (<150); Uric Acid 9.5 mg/dL (2.5-8.0)
[2019-05-04 06:42] LABS: Anisocytosis 1+ (NONE SEEN); Eosinophils % (Manual) 2 % (0-7); Lymphocytes % 21 % (15-49); Monocytes % (Manual) 13 % (1-12); Platelet Estimate NORMAL (NORMAL); RBC Morphology ABNORM (NORMAL); Segmented Neutrophils % 64 % (38-78)
[2019-05-04] MEDS: FUROSEMIDE 20 MG/2 ML VIAL IV SCH ×2 (07:40→15:13)
[2019-05-04] MEDS: ATORVASTATIN 20 MG TABLET PO SCH (08:08)
[2019-05-04] MEDS: VERAPAMIL 120 MG TAB.XL.24H PO SCH (08:08)
[2019-05-04] MEDS: LISINOPRIL 20 MG TABLET PO SCH (08:09)
[2019-05-04] MEDS: FOLIC ACID 1 MG TABLET PO SCH (08:09)
[2019-05-04] MEDS: HYDROcodone/APAP 10/325MG TABLET PO PRN ×4 (08:09→21:37)
[2019-05-04] MEDS: MULTIVIT,THER IRON,CA,FA & MIN 1 TABLET PO SCH (08:09)
[2019-05-04] MEDS: ASPIRIN 81 MG TAB.CHEW PO SCH ×2 (08:09→21:39)
[2019-05-04] MEDS: FAMOTIDINE 20 MG TABLET PO SCH (08:09)
[2019-05-04] MEDS: DOCUSATE SODIUM 100 MG CAPSULE PO SCH ×2 (08:12→21:39)
[2019-05-04] MEDS ORDERED: VANCOMYCIN 1,500 MG in 0.9 % SODIUM CHLORIDE 500 ML IV SCH (09:00)
[2019-05-04] MEDS: CYANOCOBALAMIN (VITAMIN B-12) 500 MCG TABLET PO SCH ×2 (09:22→21:38)
--- NOTE | 2019-05-04 10:13 | Operative Note ---
DATE OF OPERATION: 05/01/2019 PREOPERATIVE DIAGNOSIS: Right knee wound dehiscence status post total knee arthroplasty. POSTOPERATIVE DIAGNOSIS: Right knee wound dehiscence status post total knee arthroplasty. PROCEDURE: 1. Right knee irrigation and debridement of wound dehiscence with primary closure. 2. Right knee revision with polyethylene liner exchange. 3. Right knee antibiotic bead placement. SURGEON: Vickie Coleman MD SCIENTIFIC INFORMATICS ANALYST: None. ANESTHESIA: Spinal. INDICATIONS: The patient is a pleasant 79-year-old male who underwent total knee arthroplasty on Saturday. He was discharged to home. He fell this morning and split the wound open. We elected to proceed with the above surgical intervention. The risks and benefits were discussed with the patient in detail including, but not limited to, the risks of anesthesia, problems with the heart or lungs related to anesthesia, infection, compromise or injury to the nerves and blood vessels, deep venous thrombosis, pulmonary embolism, pneumonia, continued pain after surgery, worsening pain or symptoms after surgery, swelling, loss of motion, re-tear or failure of repair site, and need for repeat surgery. PROCEDURE IN DETAIL: The patient was seen preoperatively where site and side were properly identified and marked, and all questions were answered. He was then transferred to the operating room and given 2 grams Ancef and general anesthesia was administered without complication. A tourniquet was placed on the right upper thigh. He was placed into a leg barber. He was prepped and draped in the usual sterile fashion from the toes up to the tourniquet. The tourniquet was inflated at 275 mmHg with no exsanguination. He had a 4 cm split along the distal aspect of the incision which was gaped open. I extended the incision throughout its entirety and opened it up. I came down to the subcutaneous layer and there was a small opening along the lateral side. exchange. I completed the lateral release and opened up. We removed the polyethylene component. I thoroughly irrigated with jet lavage under antibiotic saline, 9 liters as well as curets and rongeurs to remove any of the fibrinous tissue. I then placed antibiotic beads in the knee. We placed the size 9 DePuy Attune polyethylene AOX 6 mm thickness back into the knee. We took the knee through range of motion. It was stable and appropriately tensioned. We again irrigated with IrriSept and the saline. I then closed the subcutaneous layer with 2-0 Vicryl and the skin was closed with eliza. He was dressed with Xeroform, 4 x 4s, ABD, and an Henry bandage. He was then extubated, transferred to a stretcher and taken to the PACU in stable condition. SPECIMENS: None. COMPLICATIONS: None. DRAINS: None. DISPOSITION: To PACU in stable condition. JRianna:kylee Job ID: [id number] Doc ID: [id number] Vickie Coleman MD
--- NOTE | 2019-05-04 19:55 | Internal Med Progress Note ---
Medical - PN: Subj Patient information: Note initiated : 05/04/19 at 7:55 pm Service Date, if different from initiated Date: [] Patient: Jovon Padilla 79 y/o M admitted on 05/01/19 for lower extremity injury. Chief Complaint: [] Interval history: Mr. Padilla is a 79 year old M who underwent right total knee arthroplasty on 04/28 and developed intraoperative A. fib RVR. Shortly thereafter patient was discharged in stable state. He sustained a fall at home while getting off the couch and again while stepping down the stair Not realizing he dehisced his wound. He was evaluated at physical therapy today and was directed to the ER for further evaluation of right knee injury with wound dehiscence. Initial work-up in the ER was essentially unremarkable except for dehisced right knee incision site along with heart rate around 110-130 irregular, orthopedics was consulted and patient was taken to the ER for operative intervention. Patient tolerated the surgery fairly well. Postoperatively hospitalist service is consulted as patient was noted to be in A. fib with the RVR in the immediate postoperative phase. Patient was seen during the postoperative phase in stable state. He was able to endorse history as above. He denies lightheadedness dizziness. He does endorse to lower extremity swelling but has not taken his Lasix over the last couple of days to avoid frequent trips to the bathroom. He denies chest pain, cough, fever, chills. Denies diarrhea dysuria or bloody stool. 05/02-patient doing well. Heart rate variable between 110-130 however patient confirms that he always stays around that level. He follows up with [place] [facility] Dr. Omari Melendez. Currently on verapamil at home dose. Denies chest pain lightheadedness or dizziness. Ongoing physical therapy. DC telemetry and transfer to medical floor today. 05/03-patient doing better. No overnight events. No concerns per staff. Ambulating with max assistance along with PT and tolerating diet. Stable hemodynamics. Persistent A. fib but rate controlled around 90s. possible discharge soon once cleared by orthopedics. On empiric vancomycin in light of wound dehiscence and suspected surgical site contamination. Await cultures. Will likely de-escalate antibiotics in 24 hours 8-patient doing well. Recovering well from recent surgery. Anticipate SNF transfer in 24 hours. Cultures negative so far. DC IV vancomycin. - Constitutional Vitals: Vital Signs Temp Pulse Resp BP Pulse Ox 97.9 F 91 H 18 100/62 94 05/04/19 16:00 05/04/19 16:00 05/04/19 16:00 05/04/19 19:17 05/04/19 16:00 Period Temp Pulse Resp BP Sys/Donald Pulse Ox Last 24 Hr 97.7 F-98.5 F 87-109 18-20 92-128/54-66 94-96 Intake and Output 05/04/19 05/04/19 05/04/19 05:59 13:59 21:59 Intake Total 450 360 300 Balance 450 360 300 Intake & Output: Intake & Output 05/04/19 05/04/19 05/04/19 05:59 13:59 21:59 Intake Total 450 360 300 Balance 450 360 300 Intake: Oral 450 360 300 Other: Meal Lunch Percent of Meal Consumed 100% Feeding Ability Assist with Tray Set Up Urine Appearance Clear Urine Color Pale Stool Size Large Large Stool Color Brown Brown Stool Consistency Soft Loose Formed # Voids 1 1 1 # Bowel Movements 1 1 General appearance: no acute distress Exam: Alert oriented Nonlabored breathing No anxiety Surgical site no swelling or discharge Medical - PN: Obj Da - Labs CBC & Chem 7: 05/04/19 04:35 05/04/19 04:35 Labs: Abnormal Lab Results 05/04/19 05/04/19 05/03/19 04:35 04:35 04:31 RBC 3.46 L Hgb 10.6 L Hct 32.2 L RDW 17.5 H Seg Neutrophils % Lymphocytes % Monocytes % (Manual) 13 H RBC Morphology Abnorm A Polychromasia Anisocytosis 1+ A Carbon Dioxide 32 H Glucose 121 H 131 H Uric Acid 9.5 H 9.0 H Albumin 3.1 L 3.0 L 05/03/19 05/02/19 05/02/19 04:31 04:48 04:48 RBC 3.36 L 3.62 L Hgb 10.3 L 11.1 L Hct 31.4 L 33.8 L RDW 17.4 H 17.4 H Seg Neutrophils % 81 H Lymphocytes % 13 L Monocytes % (Manual) RBC Morphology Abnorm A Abnorm A Polychromasia Few A Anisocytosis 1+ A 1+ A Carbon Dioxide Glucose 157 H Uric Acid 9.4 H Albumin 3.0 L Meds: Medications Acetaminophen (Tylenol) 650 mg PO Q6HP PRN PRN Reason: PAIN/FEVER > 101 Hydrocodone Bitart/Acetaminophen ([place] 10/325mg) 0 tab PO Q4HP PRN PRN Reason: PAIN LEVEL 3-6 Last Admin: 05/04/19 15:03 Dose: 1 tab Documented by: Aspirin (Aspirin) 81 mg PO BID [facility] Last Admin: 05/04/19 08:09 Dose: 81 mg Documented by: Atorvastatin Calcium (Lipitor) 10 mg PO DAILY [facility] Last Admin: 05/04/19 08:08 Dose: 10 mg Documented by: Bisacodyl (Dulcolax) 10 mg [place] Q2-3DAYS PRN PRN Reason: Constipation Cefazolin Sodium (Ancef) 2 gm IV Q8H [facility] Stop: 05/08/19 13:59 Last Admin: 05/04/19 14:56 Dose: 2 gm Documented by: Cyanocobalamin (Vitamin B-12) 1,000 mcg PO BID [facility] Stop: 05/06/19 09:01 Last Admin: 05/04/19 09:22 Dose: Not Given Documented by: Docusate Sodium (Colace) 100 mg PO BID [facility] Last Admin: 05/04/19 08:12 Dose: Not Given Documented by: Famotidine (Pepcid) 40 mg PO DAILY [facility] Last Admin: 05/04/19 08:09 Dose: 40 mg Documented by: Folic Acid (Folic Acid) 1 mg PO DAILY [facility] Last Admin: 05/04/19 08:09 Dose: 1 mg Documented by: Furosemide (Lasix) 20 mg IV BIDD [facility] Last Admin: 05/04/19 15:13 Dose: 20 mg Documented by: Magnesium Sulfate (Magnesium Sulfate) 2 gm in 50 mls @ 50 mls/hr IV UD PRN PRN Reason: MG = or < 1.7 Last Infusion: 05/03/19 19:03 Dose: Infused Documented by: Acetaminophen (Ofirmev) 1,000 mg in 100 mls @ 200 mls/hr IV Q6HP PRN PRN Reason: PAIN/FEVER > 101 Vancomycin HCl 1,500 mg/ (Sodium Chloride) 500 mls @ 333.3 mls/hr IV Q24H [facility] Last Admin: 05/04/19 08:48 Dose: 333.3 mls/hr Documented by: Iron Carb/Multivit/Sauk/Folic Acid (Multivitamin W/Minerals) 1 tab PO DAILY [facility] Last Admin: 05/04/19 08:09 Dose: 1 tab Documented by: Lisinopril (Zestril) 20 mg PO DAILY [facility] Last Admin: 05/04/19 08:09 Dose: 20 mg Documented by: Magnesium Hydroxide (Milk Of Magnesia) 30 ml PO BIDP PRN PRN Reason: Constipation Last Admin: 05/03/19 21:09 Dose: 30 ml Documented by: Methocarbamol (Robaxin) 750 mg PO Q6HP PRN PRN Reason: Muscle Spasm Morphine Sulfate (Morphine) 0 mg IV Q1HP PRN PRN Reason: PAIN LEVEL > 6 Ondansetron HCl (Zofran Odt) 4 mg SL Q4HP PRN PRN Reason: Nausea And Vomiting Ondansetron HCl (Zofran) 4 mg IV Q4HP PRN PRN Reason: Nausea And Vomiting Polyethylene Glycol (Miralax) 17 gm PO DAILYP PRN PRN Reason: Constipation Last Admin: 05/03/19 21:09 Dose: 17 gm Documented by: Potassium Chloride (Klor-Con) 40 meq PO DAILYP PRN PRN Reason: K+ < 3.5 Senna (Senokot) 2 tab PO HS [facility] Last Admin: 05/03/19 21:11 Dose: 2 tab Documented by: Sodium Biphosphate/Sodium Phosphate (Fleets Adult) 1 dose [place] Q3-4DAYS PRN PRN Reason: Constipation Sodium Chloride (Saline Flush) 10 ml IV Q8 [facility] Last Admin: 05/04/19 14:56 Dose: 10 ml Documented by: Throat Lozenges (Cepacol) 1 lozenge PO PRN PRN PRN Reason: Sore Throat Trazodone HCl (Desyrel) 50 mg PO HSP PRN PRN Reason: Insomnia Vancomycin HCl (Vancomycin Per Pharmacy) 1 order IV UD [facility]; Protocol Verapamil HCl (Calan Sr) 240 mg PO DAILY [facility] Last Admin: 05/04/19 08:08 Dose: 240 mg Documented by: Medical - PN: A/P - Time Spent With Patient Total time spent is greater than 50% in coordination of care (as documented) at patient's floor/unit and/or counseling patient: 15 - 24 minutes (1) Atrial fibrillation with RVR Status: Acute Assessment and plan: * Right TKA wound dehiscence with exposed hardware-status post surgical intervention. DC vancomycin. Cultures negative so far. * History of paroxysmal atrial fibrillation - rate controlled. Continue verapamil. Patient advised to follow-up with [place] [facility] in 2 weeks on discharge. Patient not on anticoagulation. On aspirin 81 daily * Postoperative pain management well controlled on as needed opioids. Continue PT OT * History of hypertension-continue XIN inhibitor/calcium latricia * Bilateral lower extremity lymphedema continue diuresis. * Hyperlipidemia -continues statin * Iron deficiency anemia. Stable * GERD continue ranitidine * COPD continue bronchodilators as needed * Prophylaxis per orthopedics Plan * DC vancomycin * Continue gentle diuresis * pain management/postop care as per orthopedics * Pre-existing well condition management on home meds * Likely SNF transfer 24 hours Current Visit: Yes Medical - PN: Qual - VTE Deep Vein Thrombosis/Pulmonary Embolism Present on Admission: No
[2019-05-04] MEDS: SENNOSIDES 1 TABLET PO SCH (21:38)
[2019-05-05] MEDS: HYDROcodone/APAP 10/325MG TABLET PO PRN ×7 (01:04→22:07)
[2019-05-05] MEDS: 0.9 % SODIUM CHLORIDE 10 ML SYRINGE IV SCH ×3 (04:43→22:07)
[2019-05-05] MEDS: ceFAZolin 1 GM VIAL IV SCH ×3 (06:02→22:06)
[2019-05-05 06:11] LABS: Hematocrit 31.5 % (41.0-55.0); Hemoglobin 10.4 g/dL (13.5-16.5); Mean Cell Volume 92.7 fL (80.0-100.0); Mean Corpuscular HGB Conc 32.9 g/dL (31.0-36.0); Mean Platelet Volume 8.4 fL (7.4-10.4); Platelet Count 254 K/mcL (140-440); Red Cell Distribution Width 17.5 % (11.5-14.5); WBC 6.4 K/mcL (4.5-11.0)
[2019-05-05 06:43] LABS: ALT/SGPT < 5 U/l (0-40); AST/SGOT 11 U/l (0-37); Albumin 2.9 gm/dL (3.2-5.2); Alkaline Phosphatase 59 U/L (39-117); Bilirubin,Direct < 0.2 mg/dL (0.0-0.3); Bilirubin,Total 0.5 mg/dL (0.0-1.0); Blood Urea Nitrogen 18 mg/dl (8-23); Calcium 8.8 mg/dl (8.6-10.4); Carbon Dioxide 31 mmol/L (22-30); Chloride 96 mmol/L (96-108); Glomerular Filtration Rate 63; Glucose 119 mg/dL (70-105); Lactate Dehydrogenase 258 U/L (94-250); Phosphorous 3.2 mg/dL (2.7-4.5); Triglycerides 135 mg/dl (<150); Uric Acid 9.1 mg/dL (2.5-8.0)
[2019-05-05 07:40] LABS: Anisocytosis 1+ (NONE SEEN); Eosinophils % (Manual) 5 % (0-7); Lymphocytes % 19 % (15-49); Monocytes % (Manual) 6 % (1-12); Platelet Estimate NORMAL (NORMAL); RBC Morphology ABNORM (NORMAL); Segmented Neutrophils % 70 % (38-78)
[2019-05-05] MEDS: FAMOTIDINE 20 MG TABLET PO SCH (08:11)
[2019-05-05] MEDS: ASPIRIN 81 MG TAB.CHEW PO SCH ×2 (08:11→22:07)
[2019-05-05] MEDS: MULTIVIT,THER IRON,CA,FA & MIN 1 TABLET PO SCH (08:12)
[2019-05-05] MEDS: FOLIC ACID 1 MG TABLET PO SCH (08:12)
[2019-05-05] MEDS: LISINOPRIL 20 MG TABLET PO SCH (08:12)
[2019-05-05] MEDS: CYANOCOBALAMIN (VITAMIN B-12) 500 MCG TABLET PO SCH ×2 (08:12→22:06)
[2019-05-05] MEDS: VERAPAMIL 120 MG TAB.XL.24H PO SCH (08:12)
[2019-05-05] MEDS: DOCUSATE SODIUM 100 MG CAPSULE PO SCH ×2 (08:12→22:06)
[2019-05-05] MEDS: ATORVASTATIN 20 MG TABLET PO SCH (08:13)
[2019-05-05] MEDS: FUROSEMIDE 20 MG/2 ML VIAL IV SCH ×2 (08:13→16:50)
--- NOTE | 2019-05-05 16:05 | Letter ---
May 05, 2019 RE: Jovon Padilla To Whom it May Concern: Jovon is a patient of mine. He underwent a total knee arthroplasty on April 28. He is an 79-year-old male with multiple medical problems including non-controlled atrial fibrillation and blood pressure issues. He was sent home on April 29 and subsequently fell at home. He had another fall on the morning of May 01, which opened his total knee wound up completely. I subsequently had to take him back to surgery on 05/01/2019 and do a polyethylene liner exchange as well as antibiotic beads to try to prevent infection. The wound was reclosed primarily at that point. Since then he is able to ambulate but has difficulty getting up and is at high risk of further falls, causing further damage to his knee replacement and needing further surgery. Due to his medical condition as well as no significant help at home, he is not a candidate to go home and would not do well, even with Home Health. He requires a stay at a long-term where he has 24-hour care, at least for several weeks until he can build up strength and is at decreased risk for fall and further injury. I believe this is medically necessary and if not provided could lead to further harm to the patient. If you have any questions, please feel free to contact me at your convenience. Sincerely, Dr. Vickie NARVAEZ/jack ABRAHAM:kylee Job ID: [id number] Doc ID: [id number] Vickie Coleman MD
[2019-05-05] MEDS: SENNOSIDES 1 TABLET PO SCH (22:06)
[2019-05-06] MEDS: 0.9 % SODIUM CHLORIDE 10 ML SYRINGE IV SCH ×2 (06:06→13:22)
[2019-05-06] MEDS: ceFAZolin 1 GM VIAL IV SCH ×2 (06:06→13:22)
[2019-05-06] MEDS: HYDROcodone/APAP 10/325MG TABLET PO PRN ×2 (06:08→16:54)
[2019-05-06 06:49] LABS: Hematocrit 31.8 % (41.0-55.0); Hemoglobin 10.6 g/dL (13.5-16.5); Mean Cell Volume 91.3 fL (80.0-100.0); Mean Corpuscular HGB Conc 33.4 g/dL (31.0-36.0); Mean Platelet Volume 8.3 fL (7.4-10.4); Platelet Count 268 K/mcL (140-440); RBC 3.48 M/mcL (4.50-5.90); Red Cell Distribution Width 16.2 % (11.5-14.5); WBC 6.8 K/mcL (4.5-11.0)
[2019-05-06 06:54] LABS: ALT/SGPT < 5 U/l (0-40); AST/SGOT 12 U/l (0-37); Alkaline Phosphatase 60 U/L (39-117); Bilirubin,Direct < 0.2 mg/dL (0.0-0.3); Bilirubin,Total 0.5 mg/dL (0.0-1.0); Blood Urea Nitrogen 17 mg/dl (8-23); Calcium 8.8 mg/dl (8.6-10.4); Carbon Dioxide 29 mmol/L (22-30); Chloride 98 mmol/L (96-108); Glomerular Filtration Rate 57; Glucose 115 mg/dL (70-105); Lactate Dehydrogenase 274 U/L (94-250); Phosphorous 3.2 mg/dL (2.7-4.5); Triglycerides 131 mg/dl (<150); Uric Acid 9.3 mg/dL (2.5-8.0)
--- NOTE | 2019-05-06 07:34 | Orthopedic Progress Note ---
Subjective Patient information: Note initiated : 05/06/19 at 7:32 am Service Date, if different from initiated Date: [] Patient: Jovon Padilla 79 y/o M admitted on 05/01/19 for lower extremity injury. Chief Complaint: [] Interval history: still in hospital. wound looks ok. still a fall risk Objective Vital signs: Vital Signs Temp Pulse Resp BP Pulse Ox 05/06/19 03:50 97.6 F 88 18 121/56 96 05/05/19 23:36 98.0 F 99 H 20 115/65 95 05/05/19 19:45 97.6 F 92 H 20 114/65 97 05/05/19 16:00 98.0 F 87 18 125/70 95 05/05/19 12:00 97.8 F 95 H 18 122/76 94 05/05/19 07:39 97.3 F 95 H 18 129/73 95 Intake and Output 05/05/19 05/06/19 05/06/19 21:59 05:59 13:59 Intake Total 800 200 Balance 800 200 Intake: Oral 800 200 Other: Meal Dinner Percent of Meal Consumed 100% Feeding Ability Independent Urine Appearance Clear Clear Urine Color Dark Yellow Stool Size Small Stool Color Brown Stool Consistency Soft Formed # Voids 1 1 1 # Bowel Movements 1 Weight 273 lb 8 oz Intake & Output: Intake & Output 05/05/19 05/06/19 05/06/19 21:59 05:59 13:59 Intake Total 800 200 Balance 800 200 Weight 273 lb 8 oz Intake: Oral 800 200 Other: Meal Dinner Percent of Meal Consumed 100% Feeding Ability Independent Urine Appearance Clear Clear Urine Color Dark Yellow Stool Size Small Stool Color Brown Stool Consistency Soft Formed # Voids 1 1 1 # Bowel Movements 1 Incision: Yes healing Incision clean and dry: Yes Dressing: Yes clean, Yes dry, Yes intact Weight bearing status: full Neurological exam IM: Yes abnormal gait, Yes alert, Yes oriented X3, Yes motor sensory intact, Yes neurovascular intact Extremities exam IM: No calf tenderness, Yes Foot pink and warm, Yes neurovascular intact - Labs CBC & BMP: 05/06/19 04:25 05/06/19 04:25 Labs: 05/06/19 05/05/19 05/04/19 04:25 04:34 04:35 Hgb 10.6 L 10.4 L 10.6 L Hct 31.8 L 31.5 L 32.2 L 05/03/19 05/02/19 05/01/19 04:31 04:48 09:55 Hgb 10.3 L 11.1 L 11.1 L Hct 31.4 L 33.8 L 33.7 L Assessment and Plan (1) Wound dehiscence, surgical s/p irrigation and debridement with liner exchange right knee would recommend SNF due to high fall risk, weakness, and inability to transfer independently. Otherwise he risks further damage and potentially need for further surgery. continue PT IV abx x 2 weeks Status: Acute Qualifiers: Encounter type: initial encounter Qualified Code(s): T81.31XA - Disruption of external operation (surgical) wound, not elsewhere classified, initial encounter
[2019-05-06] MEDS: FAMOTIDINE 20 MG TABLET PO SCH (08:13)
[2019-05-06] MEDS: VERAPAMIL 120 MG TAB.XL.24H PO SCH (08:13)
[2019-05-06] MEDS: CYANOCOBALAMIN (VITAMIN B-12) 500 MCG TABLET PO SCH (08:13)
[2019-05-06] MEDS: ASPIRIN 81 MG TAB.CHEW PO SCH (08:13)
[2019-05-06] MEDS: MULTIVIT,THER IRON,CA,FA & MIN 1 TABLET PO SCH (08:13)
[2019-05-06] MEDS: LISINOPRIL 20 MG TABLET PO SCH (08:14)
[2019-05-06] MEDS: FOLIC ACID 1 MG TABLET PO SCH (08:14)
[2019-05-06] MEDS: DOCUSATE SODIUM 100 MG CAPSULE PO SCH (08:14)
[2019-05-06] MEDS: ATORVASTATIN 20 MG TABLET PO SCH (08:14)
[2019-05-06] MEDS: FUROSEMIDE 20 MG/2 ML VIAL IV SCH ×2 (08:14→16:25)
--- NOTE | 2019-05-06 09:23 | Internal Med Progress Note ---
Medical - PN: Subj Patient information: Note initiated : 05/05/19 at 9:23 am Service Date, if different from initiated Date: [] Patient: Jovon Padilla 79 y/o M admitted on 05/01/19 for lower extremity injury. Chief Complaint: [] Interval history: Mr. Padilla is a 79 year old M who underwent right total knee arthroplasty on 04/28 and developed intraoperative A. fib RVR. Shortly thereafter patient was discharged in stable state. He sustained a fall at home while getting off the couch and again while stepping down the stair Not realizing he dehisced his wound. He was evaluated at physical therapy today and was directed to the ER for further evaluation of right knee injury with wound dehiscence. Initial work-up in the ER was essentially unremarkable except for dehisced right knee incision site along with heart rate around 110-130 irregular, orthopedics was consulted and patient was taken to the ER for operative intervention. Patient tolerated the surgery fairly well. Postoperatively hospitalist service is consulted as patient was noted to be in A. fib with the RVR in the immediate postoperative phase. Patient was seen during the postoperative phase in stable state. He was able to endorse history as above. He denies lightheadedness dizziness. He does endorse to lower extremity swelling but has not taken his Lasix over the last couple of days to avoid frequent trips to the bathroom. He denies chest pain, cough, fever, chills. Denies diarrhea dysuria or bloody stool. 8-patient doing well. Heart rate variable between 110-130 however patient confirms that he always stays around that level. He follows up with [place] [facility] Dr. Omari Melendez. Currently on verapamil at home dose. Denies chest pain lightheadedness or dizziness. Ongoing physical therapy. DC telemetry and transfer to medical floor today. 8/-patient doing better. No overnight events. No concerns per staff. Ambulating with max assistance along with PT and tolerating diet. Stable hemodynamics. Persistent A. fib but rate controlled around 90s. possible discharge soon once cleared by orthopedics. On empiric vancomycin in light of wound dehiscence and suspected surgical site contamination. Await cultures. Will likely de-escalate antibiotics in 24 hours 85-patient doing well. Recovering well from recent surgery. Anticipate SNF transfer in 24 hours. Cultures negative so far. DC IV vancomycin. 8/6- Patient doing well. Unable to transfer to SNF due to pending insurance authorization. On antibiotic coverage for 2 weeks due to high suspicion of infection following trauma. - Constitutional Vitals: Vital Signs Temp Pulse Resp BP Pulse Ox 97.8 F 98 H 18 118/72 94 05/06/19 08:00 05/06/19 08:00 05/06/19 08:00 05/06/19 08:00 05/06/19 08:00 Period Temp Pulse Resp BP Sys/Donald Pulse Ox Last 24 Hr 97.6 F-98.0 F 87-99 18-20 114-125/56-76 94-97 Intake and Output 05/05/19 05/06/19 05/06/19 21:59 05:59 13:59 Intake Total 800 200 300 Balance 800 200 300 Weight 273 lb 8 oz Intake & Output: Intake & Output 05/05/19 05/06/19 05/06/19 21:59 05:59 13:59 Intake Total 800 200 300 Balance 800 200 300 Weight 273 lb 8 oz Intake: Oral 800 200 300 Other: Meal Dinner Breakfast Percent of Meal Consumed 100% 100% Feeding Ability Independent Urine Appearance Clear Clear Urine Color Dark Yellow Stool Size Small Stool Color Brown Stool Consistency Soft Formed # Voids 1 1 2 # Bowel Movements 1 General appearance: no acute distress Exam: Alert oriented Nonlabored breathing no significant tenderness or swelling at the operative site Denies anxiety No lymphedema Medical - PN: Obj Da - Labs CBC & Chem 7: 05/06/19 04:25 05/06/19 04:25 Labs: Abnormal Lab Results 05/06/19 05/06/19 05/05/19 04:25 04:25 04:34 RBC 3.48 L Hgb 10.6 L Hct 31.8 L RDW 16.2 H Monocytes % (Manual) RBC Morphology Anisocytosis Carbon Dioxide 31 H Glucose 115 H 119 H Uric Acid 9.3 H 9.1 H Lactate Dehydrogenase 274 H 258 H Albumin 3.0 L 2.9 L 05/05/19 05/04/19 05/04/19 04:34 04:35 04:35 RBC 3.40 L 3.46 L Hgb 10.4 L 10.6 L Hct 31.5 L 32.2 L RDW 17.5 H 17.5 H Monocytes % (Manual) 13 H RBC Morphology Abnorm A Abnorm A Anisocytosis 1+ A 1+ A Carbon Dioxide 32 H Glucose 121 H Uric Acid 9.5 H Lactate Dehydrogenase Albumin 3.1 L Meds: Medications Acetaminophen (Tylenol) 650 mg PO Q6HP PRN PRN Reason: PAIN/FEVER > 101 Hydrocodone Bitart/Acetaminophen ([place] 10/325mg) 0 tab PO Q4HP PRN PRN Reason: PAIN LEVEL 3-6 Last Admin: 05/06/19 06:08 Dose: 1 tab Documented by: Aspirin (Aspirin) 81 mg PO BID [facility] Last Admin: 05/06/19 08:13 Dose: 81 mg Documented by: Atorvastatin Calcium (Lipitor) 10 mg PO DAILY [facility] Last Admin: 05/06/19 08:14 Dose: 10 mg Documented by: Bisacodyl (Dulcolax) 10 mg [place] Q2-3DAYS PRN PRN Reason: Constipation Cefazolin Sodium (Ancef) 2 gm IV Q8H [facility] Stop: 05/08/19 13:59 Last Admin: 05/06/19 06:06 Dose: 2 gm Documented by: Docusate Sodium (Colace) 100 mg PO BID [facility] Last Admin: 05/06/19 08:14 Dose: 100 mg Documented by: Famotidine (Pepcid) 40 mg PO DAILY [facility] Last Admin: 05/06/19 08:13 Dose: 40 mg Documented by: Folic Acid (Folic Acid) 1 mg PO DAILY [facility] Last Admin: 05/06/19 08:14 Dose: 1 mg Documented by: Furosemide (Lasix) 20 mg IV BIDD [facility] Last Admin: 05/06/19 08:14 Dose: 20 mg Documented by: Magnesium Sulfate (Magnesium Sulfate) 2 gm in 50 mls @ 50 mls/hr IV UD PRN PRN Reason: MG = or < 1.7 Last Infusion: 05/03/19 19:03 Dose: Infused Documented by: Acetaminophen (Ofirmev) 1,000 mg in 100 mls @ 200 mls/hr IV Q6HP PRN PRN Reason: PAIN/FEVER > 101 Iron Carb/Multivit/[place]/Folic Acid (Multivitamin W/Minerals) 1 tab PO DAILY [facility] Last Admin: 05/06/19 08:13 Dose: 1 tab Documented by: Lisinopril (Zestril) 20 mg PO DAILY [facility] Last Admin: 05/06/19 08:14 Dose: 20 mg Documented by: Magnesium Hydroxide (Milk Of Magnesia) 30 ml PO BIDP PRN PRN Reason: Constipation Last Admin: 05/03/19 21:09 Dose: 30 ml Documented by: Methocarbamol (Robaxin) 750 mg PO Q6HP PRN PRN Reason: Muscle Spasm Last Admin: 05/04/19 21:37 Dose: 750 mg Documented by: Morphine Sulfate (Morphine) 0 mg IV Q1HP PRN PRN Reason: PAIN LEVEL > 6 Ondansetron HCl (Zofran Odt) 4 mg SL Q4HP PRN PRN Reason: Nausea And Vomiting Ondansetron HCl (Zofran) 4 mg IV Q4HP PRN PRN Reason: Nausea And Vomiting Polyethylene Glycol (Miralax) 17 gm PO DAILYP PRN PRN Reason: Constipation Last Admin: 05/03/19 21:09 Dose: 17 gm Documented by: Potassium Chloride (Klor-Con) 40 meq PO DAILYP PRN PRN Reason: K+ < 3.5 Senna (Senokot) 2 tab PO HS [facility] Last Admin: 05/05/19 22:06 Dose: 2 tab Documented by: Sodium Biphosphate/Sodium Phosphate (Fleets Adult) 1 dose [place] Q3-4DAYS PRN PRN Reason: Constipation Sodium Chloride (Saline Flush) 10 ml IV Q8 [facility] Last Admin: 05/06/19 06:06 Dose: 10 ml Documented by: Throat Lozenges (Cepacol) 1 lozenge PO PRN PRN PRN Reason: Sore Throat Trazodone HCl (Desyrel) 50 mg PO HSP PRN PRN Reason: Insomnia Verapamil HCl (Calan Sr) 240 mg PO DAILY [facility] Last Admin: 05/06/19 08:13 Dose: 240 mg Documented by: Medical - PN: A/P - Time Spent With Patient Total time spent is greater than 50% in coordination of care (as documented) at patient's floor/unit and/or counseling patient: 15 - 24 minutes (1) Atrial fibrillation with RVR Status: Acute Assessment and plan: * Right TKA wound dehiscence with exposed hardware-status post surgical intervention. Continue IV cefazolin. Transition to IV Rocephin daily for 2 weeks in light of high risk suspicion of infection. Anticipate SNF transfer * History of paroxysmal atrial fibrillation - rate controlled. Continue verapamil. Patient advised to follow-up with [place] [facility] in 2 weeks on discharge. Patient not on anticoagulation. On aspirin 81 daily * Postoperative pain management well controlled on as needed opioids. Continue PT OT * History of hypertension-continue XIN inhibitor/calcium latricia * Bilateral lower extremity lymphedema continue diuresis. * Hyperlipidemia -continues statin * Iron deficiency anemia. Stable * GERD continue ranitidine * COPD continue bronchodilators as needed * Prophylaxis per orthopedics Plan * Continue cefazolin, transition Rocephin on discharge to SNF * Continue gentle diuresis * pain management/postop care as per orthopedics * Pre-existing well condition management on home meds * Awaiting SNF transfer authorization Current Visit: Yes Medical - PN: Qual - VTE Deep Vein Thrombosis/Pulmonary Embolism Present on Admission: No
[2019-05-06 09:49] LABS: Anisocytosis 1+ (NONE SEEN); Eosinophils % (Manual) 7 % (0-7); Lymphocytes % 14 % (15-49); Monocytes % (Manual) 11 % (1-12); Platelet Estimate NORMAL (NORMAL); RBC Morphology ABNORM (NORMAL); Segmented Neutrophils % 68 % (38-78)
--- NOTE | 2019-05-06 14:51 | Discharge Summary ---
Medical - DS: Prov Patient information: Note initiated : 05/06/19 at 2:49 pm Service Date, if different from initiated Date: [] Patient: Jovon Padilla 79 y/o M admitted on 05/01/19 for lower extremity injury. Chief Complaint: [] Date of admission: 05/01/19 15:00 Discharge date: 05/06/19 Primary care physician: J Luis Rodriguez Consults: 05/01/19 Consult to Physician [CONS] Stat Comment: Consulting Provider: John Minaya Reason For Exam: Physician to Consult Consult to Physician [CONS] Stat Comment: Consulting Provider: Jovon Coleman Reason For Exam: Physician to Consult Medical - DS: Meds - Discharge Medications Prescriptions: Aspirin [Ecotrin] 81 mg PO BID #30 tab.ec cefTRIAXone NA/DEXTROSE,ISO [Ceftriaxone 2 gm Piggyback] 2 gm IV DAILY #14 ml HYDROcodone/ACETAMINOPHEN [[place] 10-325 Tablet] 1 - 2 tab PO Q4-6HP PRN #50 tab PRN Reason: Pain HYDROcodone/APAP 10/325MG [[place] 10-325Mg] 1 - 2 tab PO Q4H PRN #60 tab PRN Reason: Pain Active and Home Medications: Home Medications Ferrous Sulfate [Feosol] 650 mg PO DAILY 04/22/19 [History Confirmed 05/01/19 Last Taken 04/27/19 08:00 650 MG.] Furosemide [Lasix] 80 mg PO DAILY 04/22/19 [History Confirmed 05/01/19 Last Taken 04/26/19 08:00 80 MG.] Lisinopril [Zestril] 20 mg PO DAILY 04/22/19 [History Confirmed 05/01/19 Last Taken 04/28/19 05:00 20 MG.] Lovastatin 40 mg PO DAILY 04/22/19 [History Confirmed 05/01/19 Last Taken 04/27/19 08:00 40 MG.] Ranitidine HCl [Acid Landscape Nurseryman] 150 mg PO DAILY 04/22/19 [History Confirmed 05/01/19 Last Taken 04/28/19 05:00 150 MG.] Verapamil [Calan Sr] 240 mg PO DAILY 04/22/19 [History Confirmed 05/01/19 Last Taken 04/28/19 05:00 240 MG.] Vit A,C & E/Lutein/Minerals [Ocuvite] 1 tab PO DAILY 04/22/19 [History Confirmed 05/01/19 Last Taken 04/27/19 08:00 1 TAB] Vitamin D3 5,000 unit PO DAILY 04/22/19 [History Confirmed 05/01/19 Last Taken 04/27/19 08:00 5000 UNITS] Aspirin [Children's Aspirin] 81 mg PO BID 30 Days #60 tab.chew 04/29/19 [Rx Confirmed 05/01/19 Last Taken Unknown] HYDROcodone/APAP 10/325MG [[place] 10-325Mg] 1 - 2 tab PO Q4HP PRN #60 tab 04/29/19 [Rx Confirmed 05/01/19 Last Taken Unknown] HYDROcodone/ACETAMINOPHEN [[place] 10-325 Tablet] 1 - 2 tab PO Q4-6HP PRN #50 tab 05/03/19 [Rx Last Taken Unknown] Aspirin [Ecotrin] 81 mg PO BID #30 tab.ec 05/06/19 [Rx Last Taken Unknown] HYDROcodone/APAP 10/325MG [[place] 10-325Mg] 1 - 2 tab PO Q4H PRN #60 tab 05/06/19 [Rx Last Taken Unknown] cefTRIAXone NA/DEXTROSE,ISO [Ceftriaxone 2 gm Piggyback] 2 gm IV DAILY #14 ml 05/06/19 [Rx Last Taken Unknown] Medical - DS: Hosp Hospital course: Discharge diagnosis * Right TKA wound dehiscence with exposed hardware-status post surgical intervention. Continue IV Rocephin for 2 weeks. Transferring to [facility]. Patient will be followed up by Dr. Virginia Rodriguez while at [facility] while undergoing antibiotic treatment * History of paroxysmal atrial fibrillation - rate controlled. Continue verapamil. Patient advised to follow-up with [facility] in 2 weeks on discharge. Patient not on anticoagulation. Currently on aspirin 81 daily * Postoperative pain management well controlled . Continue PT OT * History of hypertension-continue XIN inhibitor/verapamil * Bilateral lower extremity lymphedema-continue diuretics prior dose * Hyperlipidemia -continues statin * Iron deficiency anemia. Stable * GERD continue ranitidine * COPD continue bronchodilators as needed Brief hospital course Mr. Padilla is a 79 year old M who underwent right total knee arthroplasty on 04/28 and developed intraoperative A. fib RVR. Shortly thereafter patient was discharged in stable state. He sustained a fall at home while getting off the couch and again while stepping down the stair Not realizing he dehisced his wound. He was evaluated at physical therapy today and was directed to the ER for further evaluation of right knee injury with wound dehiscence. Initial work-up in the ER was essentially unremarkable except for dehisced right knee incision site along with heart rate around 110-130 irregular, orthopedics was consulted and patient was taken to the ER for operative intervention. Patient tolerated the surgery fairly well. Postoperatively hospitalist service is consulted as patient was noted to be in A. fib with the RVR in the immediate postoperative phase. Patient was seen during the postoperative phase in stable state. He was able to endorse history as above. He denies lightheadedness dizziness. He does endorse to lower extremity swelling but has not taken his Lasix over the last couple of days to avoid frequent trips to the bathroom. He denies chest pain, cough, fever, chills. Denies diarrhea dysuria or bloody stool. 05/02-patient doing well. Heart rate variable between 110-130 however patient confirms that he always stays around that level. He follows up with [facility] Dr. Omari Melendez. Currently on verapamil at home dose. Denies chest pain lightheadedness or dizziness. Ongoing physical therapy. DC telemetry and transfer to medical floor today. 05/03-patient doing better. No overnight events. No concerns per staff. Ambulating with max assistance along with PT and tolerating diet. Stable hemodynamics. Persistent A. fib but rate controlled around 90s. possible discharge soon once cleared by orthopedics. On empiric vancomycin in light of wound dehiscence and suspected surgical site contamination. Await cultures. Will likely de-escalate antibiotics in 24 hours 05/04-patient doing well. Recovering well from recent surgery. Anticipate SNF transfer in 24 hours. Cultures negative so far. DC IV vancomycin. 05/05- Patient doing well. Unable to transfer to SNF due to pending insurance authorization. On antibiotic coverage for 2 weeks due to high suspicion of infection following trauma. 05/06-patient discharging in stable state to assisted living. Will continue IV Rocephin for 2 weeks. We will follow-up with orthopedics and continue wound care recommendations and postop instruction as per orthopedics. Discharging in stable state. Discharge diagnosis: . - Time Spent with Patient Total time spent providing and/or coordinating discharge services: Greater than 30 minutes Medical - DS: Exam - Constitutional Vitals: Vital Signs Temp Pulse Resp BP Pulse Ox 05/06/19 12:00 98.0 F 87 18 113/61 96 05/06/19 08:00 97.8 F 98 H 18 118/72 94 05/06/19 03:50 97.6 F 88 18 121/56 96 05/05/19 23:36 98.0 F 99 H 20 115/65 95 05/05/19 19:45 97.6 F 92 H 20 114/65 97 05/05/19 16:00 98.0 F 87 18 125/70 95 Intake and Output 05/06/19 05/06/19 05/06/19 05:59 13:59 21:59 Intake Total 200 300 Balance 200 300 Intake: Oral 200 300 Other: Meal Breakfast Percent of Meal Consumed 100% Urine Appearance Clear Clear Urine Color Dark Yellow Dark Yellow Urine Odor Normal Stool Size Small # Voids 1 3 Medical - DS: Data Labs on day of discharge: Labs from last 24 hours 05/06/19 05/06/19 05/06/19 08:06 04:25 04:25 WBC 6.8 RBC 3.48 L Hgb 10.6 L Hct 31.8 L MCV 91.3 MCH 30.5 MCHC 33.4 RDW 16.2 H Plt Count 268 MPV 8.3 Total Counted 100 Seg Neutrophils % 68 Band Neutrophils % Not Reportable Lymphocytes % 14 L Monocytes % (Manual) 11 Eosinophils % (Manual) 7 Platelet Estimate Normal RBC Morphology Abnorm A Anisocytosis 1+ A Sodium 139 Potassium 3.9 Chloride 98 Carbon Dioxide 29 Anion Gap 12.0 BUN 17 Creatinine 1.2 GFR Calculation 57 Glucose 115 H Uric Acid 9.3 H Calcium 8.8 Phosphorus 3.2 Magnesium 2.0 Total Bilirubin 0.5 Direct Bilirubin < 0.2 GGT 18 AST 12 ALT < 5 Alkaline Phosphatase 60 Lactate Dehydrogenase 274 H Total Protein 6.0 Albumin 3.0 L Globulin 3.0 Albumin/Globulin Ratio 1.0 Triglycerides 131 Vancomycin Trough 6.3 Preliminary micro results at discharge 05/01/19 16:53 Blood Culture - Preliminary Blood 05/01/19 16:58 Blood Culture - Preliminary Blood Medical - DS: A/P - Patient/Caregiver Discharge Instructions Activity: as per physical therapy Diet: Regular Diet Additional Instructions: Discharge Instructions: Do the exercises at home that physical therapy gave you. Weight bearing as tolerated. Wear comfortable clothing for physical therapy. Take your prescription, photo ID, insurance cards, and current medication list with you to your first physical therapy appointment. Take your prescription to olive picker any medication or equipment (such as walker, crutches, toilet riser or C.P.M.) You have the Aquacel Ag dressing, leave in place for 7 days then remove. If dressing becomes soiled (turns black), remove and use gauze 4x4 dressing and silvasorb ointment and change daily. You may shower with dressing on, pat dry after shower. You may start showering on post op day #2. To avoid constipation while taking any narcotic pain medication, take an over the counter stool softener/laxative. Use your Cryocuff or ice packs as directed, on for 20 minutes at a time throughout the day. This and elevation will help with pain and swelling. Call your physician for fevers above 100.5 or pain not controlled by medication. Your prescriptions are with your discharge information. Some medications were electronically transmitted to your pharmacy of choice. Take Aspirin as prescribed to prevent blood clots (see medication list). Hospital Bed PT OT ST and bath aid OP IV rocephine for 2 weeks F/u with Dr Aguilar in 1 week Prescriptions: Aspirin [Ecotrin] 81 mg PO BID #30 tab.ec cefTRIAXone NA/DEXTROSE,ISO [Ceftriaxone 2 gm Piggyback] 2 gm IV DAILY #14 ml HYDROcodone/ACETAMINOPHEN [[place] 10-325 Tablet] 1 - 2 tab PO Q4-6HP PRN #50 tab PRN Reason: Pain HYDROcodone/APAP 10/325MG [[place] 10-325Mg] 1 - 2 tab PO Q4H PRN #60 tab PRN Reason: Pain Other Amb Orders: OT Discharge Order Location: None Selected Physical Therapy at Discharge - TKA Location: None Selected Toilet Riser Discharge Order Location: None Selected Walker Location: None Selected - Follow up Plan Follow up with: J Luis Rodriguez MD [Primary Care Provider] - Jovon Coleman MD [Physician] - 05/13/19 9:00 am Disposition: Xfer Assisted Living Facility Prognosis: Good Rehab Potential: Fair I certify that the patient requires SNF services: No Overall status at discharge: patient is progressing back to baseline Medical - DS: Qual - VTE Deep Vein Thrombosis/Pulmonary Embolism Present on Admission: No
[2019-05-06] MEDS ORDERED: 0.9 % SODIUM CHLORIDE 10 ML SYRINGE IV SCH (21:00)
== END 2019-05-06 16:34 | DRG 908 ==
LOC: ED 09:48 → SUR 11:50 → MEDSUR 15:00
PROVIDERS: ADMIT Internal Medicine; ATTEND Internal Medicine

== ENCOUNTER 2019-06-14 21:17 | Inpatient (IN) ==
--- NOTE | 2019-06-14 22:12 | Emergency Department Note ---
Fall HPI - General Chief Complaint: Fall Stated Complaint: FALL Time Seen by Provider: 06/14/19 21:36 Source: patient Mode of arrival: wheelchair - History of Present Illness HPI Narrative: This patient fell onto his right knee and dehisced a total right knee incision for the fifth time. - Related Data Home Medications Medication Instructions Recorded Confirmed Ferrous Sulfate [Feosol] 650 mg PO DAILY 04/22/19 05/21/19 Furosemide [Lasix] 80 mg PO DAILY 04/22/19 05/21/19 Lovastatin 40 mg PO HS 04/22/19 05/22/19 Ranitidine HCl [Acid Moving Van Driver] 150 mg PO DAILY 04/22/19 05/21/19 Verapamil [Calan Sr] 240 mg PO DAILY 04/22/19 05/21/19 Vit A,C & E/Lutein/Minerals 1 tab PO DAILY 04/22/19 05/21/19 [Ocuvite] Vitamin D3 5,000 unit PO DAILY 04/22/19 05/21/19 Previous Rx's Medication Instructions Recorded cefTRIAXone NA/DEXTROSE,ISO 2 gm IV DAILY #14 ml 05/06/19 [Ceftriaxone 2 gm Piggyback] Silver [Silvasorb] 7.4 ml TP DAILY #1 gel.er.ml. 05/08/19 Aspirin [Ecotrin] 81 mg PO BID #30 tab.ec 05/23/19 HYDROcodone/APAP 10/325MG [[place] 1 - 2 tab PO Q4H PRN #60 tab 05/23/19 10-325Mg] Allergies Allergy/AdvReac Type Severity Reaction Status Date / Time No Known Drug Allergies Allergy Verified 05/21/19 08:19 Review of Systems All systems ED: reviewed and negative except as stated. Fall PMH - Past Medical History Medical history: Reports: arthritis, atrial fibrillation (possible new onset. Patient does have known arrhythmia currently taking verapamil.), COPD, GERD, hyperlipidemia, obesity, other (Iron deficiency anemia) Psychiatric history: Reports: no psych history - Social History smoking status: Former smoker Physical Exam Right total knee incision is dehisced completely. Limitations: no limitations General appearance: alert Neurological: Present: alert Psychiatric: Present: normal affect Skin: Present: warm, dry Course Vital Signs Temperature 97.5 F 06/14/19 21:18 Pulse Rate 96 H 06/14/19 21:18 Respiratory Rate 18 06/14/19 21:18 Blood Pressure 117/65 06/14/19 21:18 Pulse Oximetry (%) 96 06/14/19 21:18 Temperature 97.5 F 06/14/19 21:18 Pulse Rate 69 06/14/19 21:46 Respiratory Rate 18 06/14/19 21:18 Blood Pressure 121/83 06/14/19 22:01 Pulse Oximetry (%) 96 06/14/19 21:46 Fall - MDM Narrative Medical decision making narrative: I discussed this with Dr. Beverly who discussed it with Dr. Coleman and Dr. Stewart requested that we admit the patient to the hospitalist service and he will fix him in the morning. Disposition Pt seen by ORTHOTICS PROSTHETICS ASSISTANT/PA only: No Clinical Impression: Wound dehiscence Disposition: Xfer As Outpt/Obs ([facility]) Condition: Good Referrals: J Luis Rodriguez MD [Primary Care Provider] - Time of Disposition: 22:12
[2019-06-14] MEDS ORDERED: ACETAMINOPHEN 325 MG TABLET PO PRN (23:26)
[2019-06-14] MEDS ORDERED: 0.9 % SODIUM CHLORIDE 1,000 ML IV SCH (23:26)
[2019-06-14] MEDS ORDERED: MAGNESIUM SULFATE 2 GM/50 ML BAG IV PRN (23:26)
[2019-06-14] MEDS ORDERED: POTASSIUM CHLORIDE 20 MEQ PACKET PO PRN (23:26)
[2019-06-14] MEDS ORDERED: MELATONIN 3 MG TABLET PO PRN (23:26)
[2019-06-14] MEDS ORDERED: ONDANSETRON 4 MG/2 ML VIAL IV PRN (23:26)
[2019-06-14] MEDS ORDERED: ACETAMINOPHEN 1,000 MG/100 ML BOTTLE IV PRN (23:26)
[2019-06-14] MEDS ORDERED: HYDROmorphone 2 MG/ML VIAL IV PRN (23:26)
[2019-06-15] MEDS ORDERED: HYDROmorphone 2 MG/ML VIAL ONE (00:16)
[2019-06-15] MEDS: 0.9 % SODIUM CHLORIDE 10 ML SYRINGE IV SCH ×3 (04:14→23:07)
[2019-06-15 05:44] LABS: Hematocrit 36.1 % (41.0-55.0); Hemoglobin 11.9 g/dL (13.5-16.5); Mean Platelet Volume 8.3 fL (7.4-10.4); Platelet Count 201 K/mcL (140-440); RBC 3.84 M/mcL (4.50-5.90); Red Cell Distribution Width 15.6 % (11.5-14.5)
[2019-06-15 06:11] LABS: ALT/SGPT 11 U/l (0-40); AST/SGOT 15 U/l (0-37); Albumin 3.1 gm/dL (3.2-5.2); Alkaline Phosphatase 81 U/L (39-117); Bilirubin,Direct < 0.2 mg/dL (0.0-0.3); Bilirubin,Total 0.4 mg/dL (0.0-1.0); Blood Urea Nitrogen 15 mg/dl (8-23); Calcium 8.8 mg/dl (8.6-10.4); Carbon Dioxide 22 mmol/L (22-30); Chloride 102 mmol/L (96-108); Globulin 3.1 gm/dL (2.2-3.7); Glomerular Filtration Rate 63; Glucose 105 mg/dL (70-105); Lactate Dehydrogenase 215 U/L (94-250); Phosphorous 3.3 mg/dL (2.7-4.5); Triglycerides 169 mg/dl (<150); Uric Acid 8.4 mg/dL (2.5-8.0)
[2019-06-15 07:49] LABS: Anisocytosis FEW (NONE SEEN); Band Neutrophils % 1 % (0-10); Eosinophils % (Manual) 2 % (0-7); Lymphocytes % 26 % (15-49); Monocytes % (Manual) 8 % (1-12); Platelet Estimate NORMAL (NORMAL); RBC Morphology ABNORM (NORMAL); Segmented Neutrophils % 63 % (38-78)
[2019-06-15] MEDS ORDERED: MULTIVIT,THER IRON,CA,FA & MIN 1 TABLET PO SCH (09:00)
[2019-06-15] MEDS ORDERED: DOCUSATE SODIUM 100 MG CAPSULE PO SCH (09:00)
--- NOTE | 2019-06-15 09:09 | Internal Med History&Physical ---
Medical - H&P: [facility] Patient information: Note initiated : 06/14/19 at 23:05 pm Service Date, if different from initiated Date: [] Patient: Jovon Padilla 79 y/o M admitted on 06/14/19 for FALL. Chief Complaint: [] Chief complaint: fall/right knee injury History of present illness: Mr. Padilla is a 79 year old M with a recent history of right knee arthroplasty 04/28. He had had 3 recent hospitalizations following falls and subsequent wound dehiscence managed with right knee irrigation/liner exchange and 2 weeks antibiotics. He was also admitted recently for A. fib RVR. He continues to ex perience recurrent falls. This evening he was trying to get out of bathroom and slipped on a towel landing on the shower on his back and again opened up the incision site at his right knee surgery area. Patient comes to the ER and subsequently orthopedics were consulted. Hospitalist services requested for admission. Initial work-up was unremarkable with normal labs. At the time of evaluation patient is alert and oriented. He was able to endorse history as above. He denies blistering events including lightheadedness dizziness chest palpitation or loss of consciousness. Review of systems A 10 point review system was performed and is negative except was discussed above Medical - H&P: PMH Medical history: Past medical history: Hypertension hyperlipidemia GERD COPD (not requiring O2) PAF, has refused anticoagulation and is on aspirin, has not followed up with cardiology since surgery as instructed Past surgical history: Left knee appendectomy Right knee arthroplasty Family: Mother and father both had cancer Social history: Patient quit smoking 10 months ago and lives with Has 1 mixed drink at night Is residing at [facility] at this time Medical - H&P: Meds Home Medications Medication Instructions Recorded Confirmed Type Ferrous Sulfate [Feosol] 650 mg PO DAILY 04/22/19 06/14/19 History Furosemide [Lasix] 80 mg PO DAILY 04/22/19 06/14/19 History Lovastatin 40 mg PO HS 04/22/19 06/14/19 History Ranitidine HCl [Acid Hand Ironer] 150 mg PO DAILY 04/22/19 06/15/19 History Verapamil [Calan Sr] 240 mg PO DAILY 04/22/19 06/14/19 History Vit A,C & E/Lutein/Minerals 1 tab PO DAILY 04/22/19 06/15/19 History [Ocuvite] Vitamin D3 5,000 unit PO DAILY 04/22/19 06/14/19 History Aspirin [Ecotrin] 81 mg PO BID #30 tab.ec 05/23/19 06/14/19 Rx HYDROcodone/APAP 10/325MG [[place] 1 - 2 tab PO Q4H PRN #60 tab 05/23/19 06/14/19 Rx 10-325Mg] Allergies Allergy/AdvReac Type Severity Reaction Status Date / Time No Known Drug Allergies Allergy Verified 05/21/19 08:19 Medical - H&P: Exam - Constitutional Vitals: Temp Pulse Resp BP Pulse Ox 97.4 F 76 20 134/70 96 06/15/19 04:00 06/15/19 08:00 06/15/19 04:00 06/15/19 04:00 06/15/19 04:00 General appearance: morbidly obese Exam: Alert oriented Head normocephalic Neck no lymph apathy Eye movement symmetrical Oral cavity dry S1-S2 irregular rhythm, ESM grade 1, no adventitious sound Diminished breath sounds bases Abdomen pendulous soft Right lower extremity knee covered in dressing soaked in serosanguineous fluid, bilateral lower extremity lymphedema pitting Psych alert cooperative Neuro nonfocal Skin no suspicious lesion Medical - H&P: Reslt - Labs CBC & Chem 7: 06/15/19 03:52 06/15/19 03:52 Labs: Short CBC 06/15/19 Range/Units 03:52 WBC 8.0 (4.5-11.0) K/mcL Hgb 11.9 L (13.5-16.5) g/dL Hct 36.1 L (41.0-55.0) % Plt Count 201 (140-440) K/mcL BMP 06/15/19 03:52 Sodium 138 Potassium 4.5 Chloride 102 Carbon Dioxide 22 BUN 15 Creatinine 1.1 Glucose 105 Calcium 8.8 Liver Function 06/15/19 Range/Units 03:52 Total Bilirubin 0.4 (0.0-1.0) mg/dL Direct Bilirubin < 0.2 (0.0-0.3) mg/dL GGT 25 (8-61) U/L AST 15 (0-37) U/l ALT 11 (0-40) U/l Alkaline Phosphatase 81 (39-117) U/L Albumin 3.1 L (3.2-5.2) gm/dL Medical - H&P: A/P (1) Wound dehiscence, surgical Current visit: No Status: Acute * Right TKA with wound dehiscence-orthopedic consulted. Keep n.p.o. * Pain management on as needed opioid. * History of paroxysmal atrial fibrillation -rate controlled on verapamil/continue as needed IV beta-latricia. Chads score 3 but not on an ticoagulation. patient follows up with [place] cardiology Dr. Omari Melendez and is currently on aspirin for CVA prophylaxis. * HTN-continue lisinopril/verapamil * Bilateral lower extremity lymphedema continue diuresis. * Hyperlipidemia -continues statin * Iron deficiency anemia-continue home dose ferrous sulfate * GERD continue ranitidine * COPD continue bronchodilators as needed * Prophylaxis per orthopedics Plan * Inpatient admission * Continue diuresis * Keep n.p.o. * pain management * Orthopedic consult * PT OT postoperative
[2019-06-15] MEDS ORDERED: HYDROcodone/APAP 10/325MG TABLET PO PRN (09:12)
--- NOTE | 2019-06-15 09:21 | Internal Med Progress Note ---
Medical - PN: Subj Patient information: Note initiated : 06/15/19 at 9:18 am Service Date, if different from initiated Date: [] Patient: Jovon Padilla 79 y/o M admitted on 06/14/19 for FALL. Chief Complaint: [] Interval history: Mr. Padilla is a 79 year old M with a recent history of right knee arthroplasty 04/28. He had had 3 recent hospitalizations following falls and subsequent wound dehiscence managed with right knee irrigation/liner exchange and 2 weeks antibiotics. He was also admitted recently for A. fib RVR. He continues to experience recurrent falls. This evening he was trying to get out of bathroom and slipped on a towel and again opened up the incision site at his right knee surgery area. Patient comes to the ER and subsequently orthopedics were consulted. Hospitalist services requested for admission. Initial work-up was essentially unremarkable. At the time of evaluation patient is alert and oriented. He was able to endorse history as above. He denies blistering events including lightheadedness dizziness chest palpitation or loss of consciousness. 06/15-patient due for surgery. No overnight events. DC IV fluids. Keep n.p.o. Pain adequately controlled. Restart home medications. Review postoperatively. No family at bedside. Await further orthopedic recommendations - Constitutional Vitals: Vital Signs Temp Pulse Resp BP Pulse Ox 97.4 F 76 20 134/70 96 06/15/19 04:00 06/15/19 08:00 06/15/19 04:00 06/15/19 04:00 06/15/19 04:00 Period Temp Pulse Resp BP Sys/Donald Pulse Ox Last 24 Hr 97.4 F-98.1 F 65-102 18-20 87-142/62-90 95-98 Intake and Output 06/14/19 06/15/19 06/15/19 21:59 05:59 13:59 Output Total 315 50 Balance -315 -50 Weight 256 lb 261 lb Intake & Output: Intake & Output 06/14/19 06/15/19 06/15/19 21:59 05:59 13:59 Output Total 315 50 Balance -315 -50 Weight 256 lb 261 lb Output: Void Amount 315 50 Other: Urine Appearance Clear Urine Color Bright Yellow General appearance: no acute distress, obese Exam: Nonlabored breathing No anxiety Alert oriented Irregular rhythm, tachycardia Medical - PN: Obj Da - Labs CBC & Chem 7: 06/15/19 03:52 06/15/19 03:52 Labs: Abnormal Lab Results 06/15/19 06/15/19 03:52 03:52 RBC 3.84 L Hgb 11.9 L Hct 36.1 L RDW 15.6 H RBC Morphology Abnorm A Anisocytosis Few A Uric Acid 8.4 H Albumin 3.1 L Triglycerides 169 H Meds: Medications Acetaminophen (Tylenol) 650 mg PO Q4-6HP PRN PRN Reason: PAIN/FEVER > 101 Hydrocodone Bitart/Acetaminophen ([place] 10/325mg) 1 - 2 tab PO Q4HP PRN PRN Reason: Pain Aspirin (Aspirin) 81 mg PO BID [facility] Docusate Sodium (Colace) 100 mg PO BID [facility] Last Admin: 06/15/19 07:09 Dose: Not Given Documented by: Famotidine (Pepcid) 20 mg PO DAILY [facility] Ferrous Sulfate (Ferrous Sulfate) 650 mg PO QAC [facility] Furosemide (Lasix) 80 mg PO DAILY [facility] Hydromorphone HCl (Dilaudid) 0 mg IV Q4HP PRN PRN Reason: PAIN LEVEL > 6 Acetaminophen (Ofirmev) 1,000 mg in 100 mls @ 200 mls/hr IV Q6HP PRN PRN Reason: PAIN/FEVER > 101 Magnesium Sulfate (Magnesium Sulfate) 2 gm in 50 mls @ 50 mls/hr IV UD PRN PRN Reason: MG = or < 1.7 Iron Carb/Multivit/Beebe/Folic Acid (Multivitamin W/Minerals) 1 tab PO DAILY [facility] Last Admin: 06/15/19 07:09 Dose: Not Given Documented by: Melatonin (Melatonin 3mg Tablet) 3 mg PO HSP PRN PRN Reason: Insomnia Multivitamins/Minerals (Ocuvite) 1 tab PO DAILY [facility] Ondansetron HCl (Zofran) 4 mg IV Q4-6HP PRN PRN Reason: Nausea And Vomiting Potassium Chloride (Klor-Con) 40 meq PO DAILYP PRN PRN Reason: K+ < 3.5 Senna/Docusate Sodium (Senna Plus Tablet) 1 tab PO HS [facility] Simvastatin (Zocor) 10 mg PO HS [facility] Sodium Chloride (Saline Flush) 10 ml IV Q8 [facility] Last Admin: 06/15/19 04:14 Dose: Not Given Documented by: Verapamil HCl (Calan Sr) 240 mg PO DAILY [facility] Vitamin D (Vitamin D3) 5,000 unit PO DAILY [facility] Medical - PN: A/P - Time Spent With Patient Total time spent is greater than 50% in coordination of care (as documented) at patient's floor/unit and/or counseling patient: 25 - 35 minutes (1) Wound dehiscence, surgical Status: Acute Assessment and plan: * Right TKA with wound dehiscence-orthopedic consulted. Keep n.p.o. await surgery. Will consider ID consult, await Intra-Op wound cultures * Pain management on as needed opioid. * History of paroxysmal atrial fibrillation -rate controlled on verapamil/continue as needed IV beta-latricia. Chads score 3 but not on anticoagulation. patient follows up with [facility] Dr. Omari Melendez and is currently on aspirin for CVA prophylaxis. * HTN-continue lisinopril/verapamil * Bilateral lower extremity lymphedema continue diuresis. * Hyperlipidemia -continue statin * Iron deficiency anemia- home dose ferrous sulfate * GERD continue ranitidine * COPD continue bronchodilators as needed * Prophylaxis per orthopedics Plan * Await orthopedic recommendation/surgery * Continue diuresis * Keep n.p.o. * Continue pain management * Orthopedic consult * PT OT/nutrition support during postoperative phase * Case management to coordinate discharge planning Current Visit: No
--- NOTE | 2019-06-15 14:58 | XRay Report ---
HISTORY: Fell with right hip injury FINDINGS: No fracture or dislocation are present. The hip joint spaces are normal in width and symmetric. There are couple small dystrophic soft tissue calcifications in the region and right greater trochanteric bursa. A moderate amount calcified plaque is seen in the right common femoral artery. IMPRESSION: No fracture Interpreted and Authenticated by: Leonel Cortés 06/15/19
--- NOTE | 2019-06-15 15:04 | XRay Report ---
HISTORY: Fell with low back injury FINDINGS: No fracture or spondylolisthesis are present. The bones are osteopenic. There is subtle disc space narrowing at L3-4 with tiny anterior osteophytes. A moderate amount of calcified plaque is seen in the aorta and iliac arteries. IMPRESSION: No fracture Interpreted and Authenticated by: Leonel Cortés 06/15/19
[2019-06-15] MEDS ORDERED: VANCOMYCIN 2,000 MG in 0.9 % SODIUM CHLORIDE 500 ML IV ONE (16:44)
--- NOTE | 2019-06-15 16:50 | Orthopedic Consult Note ---
History of Present Illness - [facility] Patient information: Note initiated : 06/15/19 at 4:48 pm Service Date, if different from initiated Date: [] Patient: Jovon Padilla 79 y/o M admitted on 06/14/19 for FALL. Chief Complaint: [right knee wound dehisence] Consult date: 06/15/19 Consult reason: other (wound dehisence) History of present illness: Patient had a right TKA with Dr. Coleman on 04/28/2019 and has subsequently dehisced the surgical wound three times since the time of surgery from repeat falls. Most recently, he was ambulating solo to the commode when he lost his balance and fell backward into the shower, landing on the shower tray lip on his back. He was helped by his and neighbor into the car and to the hospital. The surgical wound was open. He was admitted overnight. Today the wound is completely open. He complains of pain in his right hip and low back from the fall. He denies hitting his head, chest pain, shortness of breath, dizziness or tremors. He has no pain in any other extremity at this time. His is present at the bedside. Review of Systems All systems PM: reviewed and no additional remarkable complaints except as stated (as documented in the HPI) Medications and Allergies Home Medications Medication Instructions Recorded Confirmed Type Ferrous Sulfate [Feosol] 650 mg PO DAILY 04/22/19 06/14/19 History Furosemide [Lasix] 80 mg PO DAILY 04/22/19 06/14/19 History Lovastatin 40 mg PO HS 04/22/19 06/14/19 History Ranitidine HCl [Acid Gumming Machine Operator] 150 mg PO DAILY 04/22/19 06/15/19 History Verapamil [Calan Sr] 240 mg PO DAILY 04/22/19 06/14/19 History Vit A,C & E/Lutein/Minerals 1 tab PO DAILY 04/22/19 06/15/19 History [Ocuvite] Vitamin D3 5,000 unit PO DAILY 04/22/19 06/14/19 History Aspirin [Ecotrin] 81 mg PO BID #30 tab.ec 05/23/19 06/14/19 Rx HYDROcodone/APAP 10/325MG [[place] 1 - 2 tab PO Q4H PRN #60 tab 08/24/19 09/15/19 Rx 10-325Mg] Allergies Allergy/AdvReac Type Severity Reaction Status Date / Time No Known Drug Allergies Allergy Verified 05/21/19 08:19 Assessment and Plan (1) Wound dehiscence Traumatic surgical wound dehiscence: The wound is open and exposing the internal knee components. It is imperative to irrigate and debride the site and reclose the incision to prevent acute infecti on or infection of the prostheses. The patient has already had two of these procedures performed. The plan is for a right knee irrigation and debridement with polyliner exchange with Dr. Coleman today. We will consult Dr. Coreas for IV antibiotic suggestion from the time of today's surgery. The patient will remain inpatient to start IV antibiotics with the recommendation of returning to inpatient rehab for fall prevention. We had a lengthy discussion regarding the risks and benefits associated with surgery, including but not limited to, the risk of infection, risks associated with anesthesia, risk of wound complications or failure, risk for repeat surgery or staged revision. The patient understands these risks and wishes to proceed. Status: Acute (2) Status post knee replacement Status: Acute Qualifiers: Laterality: bilateral Qualified Code(s): Z96.653 - Presence of artificial knee joint, bilateral (3) Wound dehiscence, surgical Status: Acute Qualifiers: Encounter type: initial encounter Qualified Code(s): T81.31XA - Disruption of external operation (surgical) wound, not elsewhere classified, initial encounter Exam Temp Pulse Resp BP Pulse Ox 97.9 F 107 H 18 152/71 97 06/15/19 16:00 06/15/19 16:00 06/15/19 16:00 06/15/19 16:00 06/15/19 16:00 - General physical appearance well developed, well nourished, no distress - Head Head exam IM: Present: atraumatic, normal inspection, normocephalic - Cardiovascular Cardiovascular exam IM: Present: normal rate and rhythm - Respiratory clear to auscultation - Neurologic Present: normal sensation - Musculoskeletal Present: other - Psychiatric Present: oriented to time, oriented to person, oriented to place - Additional Findings right knee incision completely open with large hematoma present. Kerlix dressing covering wound. No active bleeding or drainage. Small bruise on lateral right hip. NTTP throughout hip and low back. Subjectively able to bear weight on hip without pain. ROM unable to check d/t wound location. Results - Labs Result Diagrams: 06/15/19 03:52 06/15/19 03:52 Labs: Abnormal lab results 06/15/19 06/15/19 Range/Units 03:52 03:52 RBC 3.84 L (4.50-5.90) M/mcL Hgb 11.9 L (13.5-16.5) g/dL Hct 36.1 L (41.0-55.0) % RDW 15.6 H (11.5-14.5) % RBC Morphology Abnorm A (NORMAL) Anisocytosis Few A (NONE SEEN) Uric Acid 8.4 H (2.5-8.0) mg/dL Albumin 3.1 L (3.2-5.2) gm/dL Triglycerides 169 H (<150) mg/dl H & H 06/15/19 Range/Units 03:52 Hgb 11.9 L (13.5-16.5) g/dL Hct 36.1 L (41.0-55.0) % All other labs normal. - Diagnostic results Hip x-ray: report reviewed (No acute fractures), image reviewed Lumbar AP/lateral x-ray: report reviewed (No acute fractures), image reviewed
[2019-06-15] MEDS ORDERED: DEXAMETHASONE 10 MG/ML VIAL IV ONE (17:37)
[2019-06-15] MEDS ORDERED: LIDOCAINE HCL/PF 100 MG/5 ML SYRINGE IV ONE (17:37)
[2019-06-15] MEDS ORDERED: HYDROmorphone 2 MG/ML VIAL IV ONE (17:37)
[2019-06-15] MEDS ORDERED: KETAMINE 100 MG/ML ML IV ONE (17:37)
[2019-06-15] MEDS ORDERED: PROPOFOL 200 MG/20 ML VIAL IV ONE (17:37)
[2019-06-15] MEDS ORDERED: TRANEXAMIC ACID 1,000 MG/10 ML VIAL IV ONE (17:37)
[2019-06-15] MEDS ORDERED: fentaNYL 100 MCG/2 ML VIAL IV ONE (17:37)
[2019-06-15] MEDS ORDERED: ONDANSETRON 4 MG/2 ML VIAL IV ONE (17:37)
[2019-06-15] MEDS ORDERED: PHENYLEPHRINE 10 MG/ML VIAL IV ONE (17:37)
[2019-06-15] MEDS ORDERED: GLYCOPYRROLATE 0.2 MG/ML VIAL IV ONE (17:37)
[2019-06-15] MEDS ORDERED: MIDAZOLAM 2 MG/2 ML VIAL IV ONE (17:37)
[2019-06-15] MEDS ORDERED: GENTAMICIN SULFATE 800 MG/20 ML VIAL IR ONE (18:04)
[2019-06-15] MEDS ORDERED: TOBRAMYCIN SULFATE 1.2 GM VIAL TOPICAL ONE (18:06)
[2019-06-15] MEDS ORDERED: VANCOMYCIN 1 GM VIAL TOPICAL SCH (18:15)
[2019-06-15] MEDS ORDERED: NALOXONE HCL 0.4 MG/ML VIAL IV PRN ×2 (18:20→19:53)
[2019-06-15] MEDS ORDERED: IPRATROPIUM/ALBUTEROL 3 ML AMPUL.NEB NEB PRN ×2 (18:20→19:53)
[2019-06-15] MEDS ORDERED: fentaNYL 100 MCG/2 ML VIAL IV PRN ×2 (18:20→19:53)
[2019-06-15] MEDS ORDERED: METHOCARBAMOL 1,000 MG/10 ML VIAL IV PRN ×2 (18:20→19:53)
[2019-06-15] MEDS ORDERED: LACTATED RINGERS 250 ML IV PRN ×2 (18:20→19:53)
[2019-06-15] MEDS ORDERED: ACETAMINOPHEN 1,000 MG/100 ML BOTTLE IV ONE (18:20)
[2019-06-15] MEDS ORDERED: FLUMAZENIL 0.1 MG/ML ML IV PRN ×2 (18:20→19:53)
[2019-06-15] MEDS ORDERED: BENZOCAINE/MENTHOL 1 LOZENGE PO PRN ×2 (18:20→19:53)
[2019-06-15] MEDS ORDERED: ONDANSETRON 4 MG/2 ML VIAL IV PRN ×3 (18:20→19:53)
[2019-06-15] MEDS ORDERED: MEPERIDINE 25 MG/ML SYRINGE IV PRN ×2 (18:20→19:53)
[2019-06-15] MEDS ORDERED: LACTATED RINGERS 1,000 ML IV SCH ×2 (18:30→19:53)
[2019-06-15] MEDS ORDERED: ACETAMINOPHEN 1,000 MG/100 ML BOTTLE IV PRN (19:53)
[2019-06-15] MEDS ORDERED: HYDROmorphone 2 MG/ML VIAL IV PRN (19:53)
[2019-06-15] MEDS ORDERED: MAGNESIUM SULFATE 2 GM/50 ML BAG IV PRN (19:53)
[2019-06-15] MEDS ORDERED: POTASSIUM CHLORIDE 20 MEQ PACKET PO PRN (19:53)
[2019-06-15] MEDS ORDERED: ACETAMINOPHEN 325 MG TABLET PO PRN (19:53)
[2019-06-15] MEDS ORDERED: VANCOMYCIN PER PHARMACY IV SCH (20:40)
[2019-06-15] MEDS ORDERED: ASPIRIN 81 MG TAB.CHEW PO SCH (21:00)
[2019-06-15] MEDS ORDERED: SIMVASTATIN 10 MG TABLET PO SCH (21:00)
[2019-06-15] MEDS ORDERED: SENNOSIDES/DOCUSATE SODIUM 1 TAB TABLET PO SCH (21:00)
[2019-06-15] MEDS ORDERED: VANCOMYCIN 500 MG in 0.9 % SODIUM CHLORIDE 100 ML IV ONE (21:00)
[2019-06-15] MEDS: LACTATED RINGERS 1,000 ML IV SCH ×2 (21:20→21:21)
[2019-06-15] MEDS: SIMVASTATIN 10 MG TABLET PO SCH (23:16)
[2019-06-15] MEDS: ASPIRIN 81 MG TAB.CHEW PO SCH (23:16)
[2019-06-15] MEDS: DOCUSATE SODIUM 100 MG CAPSULE PO SCH (23:17)
[2019-06-15] MEDS: SENNOSIDES/DOCUSATE SODIUM 1 TAB TABLET PO SCH (23:17)
[2019-06-16] MEDS: HYDROcodone/APAP 10/325MG TABLET PO PRN ×3 (02:07→10:52)
[2019-06-16] MEDS: LACTATED RINGERS 1,000 ML IV SCH ×2 (05:28→15:17)
[2019-06-16] MEDS: 0.9 % SODIUM CHLORIDE 10 ML SYRINGE IV SCH ×3 (05:55→20:24)
[2019-06-16] MEDS ORDERED: FERROUS SULFATE 325 MG TABLET PO SCH (08:00)
--- NOTE | 2019-06-16 08:14 | Operative Note ---
DATE OF OPERATION: 06/15/2019 PREOPERATIVE DIAGNOSIS: Right knee fall with wound dehiscence. POSTOPERATIVE DIAGNOSIS: Right knee fall with wound dehiscence. PROCEDURE PERFORMED: 1. Right knee irrigation and debridement with revision liner exchange. 2. Right knee antibiotic bead placement. SURGEON: Vickie Coleman M.D. CONTRACT LEAD: Stephanie Bess PA-C. The PA's assistance was required for the safe and efficient completion of the entire case. This provider's expertise and technical skill were required throughout the case. The PA assisted with preoperative coordination, intraoperative retraction, wound closure, dressing and splint application, as well as postoperative documentation and care coordination. ANESTHESIA: General. FINDINGS: 1. Split incision after fall at home with a lateral release so the joint was exposed. 2. No evidence of gross infection. IMPLANTS: 1. Stimulan Rapid Cure Biocomposite beads with gentamicin and tobramycin. 2. DePuy Attune tibial insert fixed bearing posterior stabilized size 9, 6 mm AOX. SPECIMENS: None. COMPLICATIONS: None. DISPOSITION: To PACU in stable condition. INDICATION: The patient is an 79-year-old male. He has had multiple falls, splitting his incision open. This is the fourth one. After a third one, he was doing well. He was finally allowed to be in a jail. He was released several days ago. He got up going to the shower and fell directly on his knees, splitting the knee open again. He was admitted to the hospital, underwent medical clearance and is stable for surgical intervention. The risks and benefits were discussed with the patient in detail including, but not limited to, the risks of anesthesia, problems with the heart or lungs related to anesthesia, infection, compromise or injury to the nerves and blood vessels, deep venous thrombosis, pulmonary embolism, pneumonia, continued pain after surgery, worsening pain or symptoms after surgery, swelling, loss of motion, re-tear or failure of repair site, and need for repeat surgery. OPERATIVE NOTE: The patient was seen preoperatively where all questions were answered and the correct side and site were identified and marked. He was then transferred to the operating room and given 2 grams of vancomycin and general anesthesia was administered without complication. He was prepped and draped in the usual fashion from the toes up to the tourniquet. An Esmarch bandage was used to exsanguinate the limb and tourniquet was inflated to 300 mmHg. The incision was open. I debrided the edges of the incision. There was no gross infection noted. We removed the polyethylene liner. The medial parapatellar arthrotomy had been previously repaired and was healed. The extensor mechanism was intact. I removed the polyethylene liner. We thoroughly irrigated with Irrisept and 9 liters of antibiotic saline with jet lavage. I replaced a liner which was a [employer] tibial insert fixed bearing posterior stabilized size 9, 6 mm AOX. We then placed antibiotic beads. We again irrigated and cleaned the wound. We then closed the deep space with 2-0 Monocryl. The skin was then closed with 2-0 Prolene and eliza. He was extubated, transferred to a stretcher, and taken to PACU in stable condition. JARAD:pascual Job ID: [id number] Doc ID: [id number] Vickie Coleman MD
[2019-06-16] MEDS ORDERED: FUROSEMIDE 40 MG TABLET PO SCH (09:00)
[2019-06-16] MEDS ORDERED: VIT A,C & E/LUTEIN/MINERALS TABLET PO SCH (09:00)
[2019-06-16] MEDS ORDERED: VITAMIN D3 5,000 UNIT CAPSULE PO SCH (09:00)
[2019-06-16] MEDS ORDERED: VERAPAMIL 120 MG TAB.XL.24H PO SCH (09:00)
[2019-06-16] MEDS ORDERED: FAMOTIDINE 20 MG TABLET PO SCH (09:00)
[2019-06-16] MEDS: FUROSEMIDE 40 MG TABLET PO SCH (10:51)
[2019-06-16] MEDS: FERROUS SULFATE 325 MG TABLET PO SCH (10:51)
[2019-06-16] MEDS: VANCOMYCIN 1,500 MG in 0.9 % SODIUM CHLORIDE 500 ML IV SCH ×2 (10:52→20:43)
[2019-06-16] MEDS: MULTIVIT,THER IRON,CA,FA & MIN 1 TABLET PO SCH (10:52)
[2019-06-16] MEDS: VIT A,C & E/LUTEIN/MINERALS TABLET PO SCH (10:52)
[2019-06-16] MEDS: FAMOTIDINE 20 MG TABLET PO SCH (10:53)
[2019-06-16] MEDS: ASPIRIN 81 MG TAB.CHEW PO SCH ×2 (10:53→20:43)
[2019-06-16] MEDS: DOCUSATE SODIUM 100 MG CAPSULE PO SCH ×2 (10:54→20:23)
[2019-06-16] MEDS: VERAPAMIL 120 MG TAB.XL.24H PO SCH (10:55)
[2019-06-16] MEDS: VITAMIN D3 5,000 UNIT CAPSULE PO SCH (10:56)
--- NOTE | 2019-06-16 11:01 | Internal Med Progress Note ---
Medical - PN: Subj Patient information: Note initiated : 06/16/19 at 10:58 am Service Date, if different from initiated Date: [] Patient: Jovon Padilla 79 y/o M admitted on 06/15/19 for FALL. Chief Complaint: [] Interval history: Mr. Padilla is a 79 year old M with a recent history of right knee arthroplasty 04/28. He had had 3 recent hospitalizations following falls and subsequent wound dehiscence managed with right knee irrigation/liner exchange and 2 weeks antibiotics. He was also admitted recently for A. fib RVR. He continues to experience recurrent falls. This evening he was trying to get out of bathroom and slipped on a towel and again opened up the incision site at his right knee surgery area. Patient comes to the ER and subsequently orthopedics were consulted. Hospitalist services requested for admission. Initial work-up was essentially unremarkable. At the time of evaluation patient is alert and oriented. He was able to endorse history as above. He denies blistering events including lightheadedness dizziness chest palpitation or loss of consciousness. 06/15-patient due for surgery. No overnight events. DC IV fluids. Keep n.p.o. Pain adequately controlled. Restart home medications. Review postoperatively. No family at bedside. Await further orthopedic recommendations 06/16-patient now postop day 2. Doing well. No significant pain. Continues to resist SNF transfer despite multiple falls and recurrent wound dehiscence x5. Will continue further discussions due to safety issues and inability to take care of self. On IV vancomycin per orthopedics. Continue postoperative rehab - Constitutional Vitals: Vital Signs Temp Pulse Resp BP Pulse Ox 98.1 F 63 16 123/76 96 06/16/19 08:00 06/16/19 08:00 06/16/19 08:00 06/16/19 08:00 06/16/19 08:00 Period Temp Pulse Resp BP Sys/Donald Pulse Ox Last 24 Hr 97.0 F-99.3 F 60-129 11-18 100-152/62-111 87-100 Intake and Output 06/15/19 06/16/19 06/16/19 21:59 05:59 13:59 Intake Total 1120 1600 Output Total 150 550 200 Balance 970 1050 -200 Weight 263 lb Intake & Output: Intake & Output 06/15/19 06/16/19 06/16/19 21:59 05:59 13:59 Intake Total 1120 1600 Output Total 150 550 200 Balance 970 1050 -200 Weight 263 lb Intake: IV 900 Lactated Ringers 1,000 ml @ 125 900 mls/hr IV .Q8H [facility] Rx#: [id number] Oral 0 700 IV - Manual Only 1120 Output: Void Amount 100 550 200 Estimated Blood Loss 50 Other: Meal NPO Urine Appearance Clear Clear Urine Color Bright Yellow Dark Yellow Stool Size Large Stool Color Brown Stool Consistency Soft # Bowel Movements 1 General appearance: no acute distress Exam: Alert oriented Sitting at the edge of bed Nonlabored breathing Right knee protective strap/dressing Medical - PN: Obj Da - Labs CBC & Chem 7: 06/15/19 03:52 06/15/19 03:52 Labs: Abnormal Lab Results 06/15/19 06/15/19 03:52 03:52 RBC 3.84 L Hgb 11.9 L Hct 36.1 L RDW 15.6 H RBC Morphology Abnorm A Anisocytosis Few A Uric Acid 8.4 H Albumin 3.1 L Triglycerides 169 H Meds: Medications Acetaminophen (Tylenol) 650 mg PO Q4-6HP PRN PRN Reason: PAIN/FEVER > 101 Hydrocodone Bitart/Acetaminophen ([place] 10/325mg) 1 - 2 tab PO Q4HP PRN PRN Reason: Pain Last Admin: 06/16/19 10:52 Dose: 1 tab Documented by: Aspirin (Aspirin) 81 mg PO BID [facility] Last Admin: 06/16/19 10:53 Dose: 81 mg Documented by: Docusate Sodium (Colace) 100 mg PO BID [facility] Last Admin: 06/16/19 10:54 Dose: Not Given Documented by: Famotidine (Pepcid) 20 mg PO DAILY [facility] Last Admin: 06/16/19 10:53 Dose: 20 mg Documented by: Ferrous Sulfate (Ferrous Sulfate) 650 mg PO [facility] Last Admin: 06/16/19 10:51 Dose: 650 mg Documented by: Furosemide (Lasix) 80 mg PO DAILY [facility] Last Admin: 06/16/19 10:51 Dose: 80 mg Documented by: Hydromorphone HCl (Dilaudid) 0 mg IV Q4HP PRN PRN Reason: PAIN LEVEL > 6 Magnesium Sulfate (Magnesium Sulfate) 2 gm in 50 mls @ 50 mls/hr IV UD PRN PRN Reason: MG = or < 1.7 Acetaminophen (Ofirmev) 1,000 mg in 100 mls @ 200 mls/hr IV Q6HP PRN PRN Reason: PAIN/FEVER > 101 Lactated Ringer's (Lactated Ringers) 1,000 mls @ 125 mls/hr IV .Q8H [facility] Last Admin: 06/16/19 05:28 Dose: 125 mls/hr Documented by: Vancomycin HCl 1,500 mg/ (Sodium Chloride) 500 mls @ 333.3 mls/hr IV Q12H [facility] Last Admin: 06/16/19 10:52 Dose: 333.3 mls/hr Documented by: Iron Carb/Multivit/Prue/Folic Acid (Multivitamin W/Minerals) 1 tab PO DAILY [facility] Last Admin: 06/16/19 10:52 Dose: 1 tab Documented by: Melatonin (Melatonin 3mg Tablet) 3 mg PO HSP PRN PRN Reason: Insomnia Multivitamins/Minerals (Ocuvite) 1 tab PO DAILY [facility] Last Admin: 06/16/19 10:52 Dose: 1 tab Documented by: Ondansetron HCl (Zofran) 4 mg IV Q4-6HP PRN PRN Reason: Nausea And Vomiting Potassium Chloride (Klor-Con) 40 meq PO DAILYP PRN PRN Reason: K+ < 3.5 Senna/Docusate Sodium (Senna Plus Tablet) 1 tab PO HS [facility] Last Admin: 06/15/19 23:17 Dose: Not Given Documented by: Simvastatin (Zocor) 10 mg PO HS [facility] Last Admin: 06/15/19 23:16 Dose: 10 mg Documented by: Sodium Chloride (Saline Flush) 10 ml IV Q8 [facility] Last Admin: 06/16/19 05:55 Dose: Not Given Documented by: Vancomycin HCl (Vancomycin Per Pharmacy) 1 order IV UD [facility]; Protocol Verapamil HCl (Calan Sr) 240 mg PO DAILY [facility] Vitamin D (Vitamin D3) 5,000 unit PO DAILY [facility] Medical - PN: A/P - Time Spent With Patient Total time spent is greater than 50% in coordination of care (as documented) at patient's floor/unit and/or counseling patient: 25 - 35 minutes (1) Wound dehiscence, surgical Status: Acute Assessment and plan: * Right TKA with wound dehiscence-postoperative day 2. On IV vancomycin per orthopedics. * Pain management well controlled on as needed opioid. * History of paroxysmal atrial fibrillation -rate controlled on verapamil. Chads score 3 but not on anticoagulation. patient follows up with [place] cardiology Dr. Omari Miranda and is currently on aspirin for CVA prophylaxis. * HTN-continue lisinopril/verapamil * Bilateral lower extremity lymphedema continue diuresis. * Hyperlipidemia -continue statin * Iron deficiency anemia- home dose ferrous sulfate * GERD continue ranitidine * COPD continue bronchodilators as needed * Prophylaxis per orthopedics Plan * Continue postoperative care per orthopedics * PT OT/nutrition support * Continue pain management * Prior medical condition management on home meds * Case management to coordinate discharge planning likely to SNF. Patient however unwilling Current Visit: No
--- NOTE | 2019-06-16 16:01 | Orthopedic Progress Note ---
Subjective Patient information: Note initiated : 06/16/19 at 3:58 pm Service Date, if different from initiated Date: [] Patient: Jovon Padilla 79 y/o M admitted on 06/15/19 for FALL. Chief Complaint: [POD #1 s/p right knee I&D with poly liner exchange When I entered room, brace was not on correctly and patient had knee bent to 100 degrees. He denies pain, SOB, CP, dizziness, numbness or tingling. No questions or concerns. ] Objective Vital signs: Vital Signs Temp Pulse Resp BP BP Pulse Ox 06/16/19 12:00 97.3 F 70 16 131/62 96 06/16/19 08:00 98.1 F 63 16 123/76 96 06/16/19 04:35 97.6 F 62 14 107/67 99 06/15/19 23:40 97.2 F 60 18 117/63 97 06/15/19 22:59 94 06/15/19 22:40 66 12 117/64 98 06/15/19 21:40 63 118/69 95 06/15/19 21:10 105 H 134/83 96 06/15/19 20:41 111 H 126/76 97 06/15/19 20:25 113 H 122/80 98 06/15/19 20:10 119 H 133/83 98 06/15/19 19:56 107 H 125/72 97 06/15/19 19:40 110 H 16 134/71 87 L 06/15/19 19:29 97.0 F 120 H 14 127/83 95 06/15/19 19:27 97.0 F 120 H 11 L 127/83 95 06/15/19 19:17 120 H 14 134/93 94 06/15/19 19:12 129 H 12 140/111 97 06/15/19 19:07 127 H 14 144/74 100 06/15/19 19:02 99.3 F H 116 H 12 133/79 97 06/15/19 16:00 97.9 F 107 H 18 152/71 97 Intake and Output 06/16/19 06/16/19 06/16/19 05:59 13:59 21:59 Intake Total 0473 275 1921 Output Total 550 200 Balance 5298 431 6763 Intake: IV 388 455 8697 Lactated Ringers 1,000 ml @ 145 497 9851 mls/hr IV .Q8H [facility] Rx#: [id number] Vancomycin 1,500 mg In Sodium 500 Chloride 0.9% 500 ml @ 333.3 mls/hr IV Q12H [facility] Rx#: [id number] Oral 700 200 360 Output: Void Amount 550 200 Other: Meal Breakfast Percent of Meal Consumed 100% Urine Appearance Clear Urine Color Dark Yellow Weight 263 lb Patient Weight 06/17/19 05:59 Weight 263 lb Intake & Output: Intake & Output 06/16/19 06/16/19 06/16/19 05:59 13:59 21:59 Intake Total 4874 734 4908 Output Total 550 200 Balance 3873 267 7992 Weight 263 lb Intake: IV 874 642 3560 Lactated Ringers 1,000 ml @ 171 983 4373 mls/hr IV .Q8H [facility] Rx#: [id number] Vancomycin 1,500 mg In Sodium 500 Chloride 0.9% 500 ml @ 333.3 mls/hr IV Q12H [facility] Rx#: [id number] Oral 700 200 360 Output: Void Amount 550 200 Other: Meal Breakfast Percent of Meal Consumed 100% Urine Appearance Clear Urine Color Dark Yellow Incision: Yes healing, No draining, No red, No swollen, No inflamed, Yes clean and dry Incision clean and dry: Yes Dressing: Yes clean, Yes dry, Yes intact Weight bearing status: as tolerated Neurological exam IM: Yes alert, Yes oriented X3, Yes motor sensory intact, Yes neurovascular intact Extremities exam IM: No calf tenderness, Yes Foot pink and warm, Yes neurovascular intact - Periperhal Pulses Peripheral pulses: 2+: dorsalis pedis (L), dorsalis pedis (R), posterior tibialis (L), posterior tibialis (R) - Labs CBC & BMP: 06/16/19 13:09 06/15/19 03:52 Labs: 06/16/19 06/15/19 13:09 03:52 Hgb TNP 11.9 L Hct TNP 36.1 L Assessment and Plan (1) Wound dehiscence POD #1 s/p right knee I&D with polyliner exchange: -d/c planning to SNF when available for stabilization -IV abx recommendation per Dr. Coreas, consult ordered -brace at all times, locked in extension. PT may do exercises 0-90 deg. Brace on for ambulation and in bed -pain control -WBAT with brace Status: Acute (2) Status post knee replacement Status: Acute Qualifiers: Laterality: bilateral Qualified Code(s): Z96.653 - Presence of artificial knee joint, bilateral (3) Wound dehiscence, surgical Status: Acute Qualifiers: Encounter type: initial encounter Qualified Code(s): T81.31XA - Disruption of external operation (surgical) wound, not elsewhere classified, initial encounter
--- NOTE | 2019-06-16 17:28 | Infectious Disease Consult ---
History of Present Illness Patient information: Note initiated : 06/16/19 at 4:52 pm Service Date, if different from initiated Date: [] Patient: Jovon Padilla 79 y/o M admitted on 06/15/19 for FALL. Chief Complaint: [] Consult date: 06/16/19 Requesting Physician: Jovon Coleman Reason for Consult: Rt TKA surgical wound dehiscence, post trauma Chief complaint: I had a fall and my sutures gave way History of present illness: 79 year old man with Hx of Rt TKA (on 04/28/19) and subsequent repetitive falls (about 5 times at home) leading to surgical wound dehiscence needing hospitalization and repetitive (05/01, 05/21) surgical I&D and poly-liner exchange with placement of antibiotic beads. Each time he was operated, he was discharged on 2 weeks of IV Ceftriaxone. Pt did not have fever, chills, pus drainage at each of these hospitalizations. On 06/14, he was trying to get out of bathroom and slipped on a towel landing on the shower on his back and again opened up the incision site at his right knee surgery area. The hardware was not visible unless probed. Pt came to ER and was admitted. Underwent I&D of right TKA wound with poly- exchange and placement of antibiotic beads. No operative Cx were sent. Pt denies any fever, chills, n/v, diarrhea. He has been on IV Vanc since admission. at bedside reported concerns about ability of pt to stay at home, and difficulty assisting him with moving around and carrying out ADLs. Review of Systems All systems PM: reviewed and no additional remarkable complaints except as stated Constitutional: as per HPI Past History Past medical history: Past medical history: Hypertension hyperlipidemia GERD COPD (not requiring O2) PAF, has refused anticoagulation and is on aspirin, has not followed up with cardiology since surgery as instructed Past surgical history: Past surgical history: Left knee appendectomy Right knee arthroplasty Past family history: Family: Mother and father both had cancer Past social history: Patient quit smoking 10 months ago and lives with Has 1 mixed drink at night Is residing at [facility] at this time Medications and Allergies Home Medications Medication Instructions Recorded Confirmed Type Ferrous Sulfate [Feosol] 650 mg PO DAILY 04/22/19 06/14/19 History Furosemide [Lasix] 80 mg PO DAILY 04/22/19 06/14/19 History Lovastatin 40 mg PO HS 04/22/19 06/14/19 History Ranitidine HCl [Acid [employer]] 150 mg PO DAILY 04/22/19 06/15/19 History Verapamil [Calan Sr] 240 mg PO DAILY 04/22/19 06/14/19 History Vit A,C & E/Lutein/Minerals 1 tab PO DAILY 04/22/19 06/15/19 History [Ocuvite] Vitamin D3 5,000 unit PO DAILY 04/22/19 06/14/19 History Aspirin [Ecotrin] 81 mg PO BID #30 tab.ec 05/23/19 06/14/19 Rx HYDROcodone/APAP 10/325MG [[place] 1 - 2 tab PO Q4H PRN #60 tab 05/23/19 06/14/19 Rx 10-325Mg] Allergies Allergy/AdvReac Type Severity Reaction Status Date / Time No Known Drug Allergies Allergy Verified 05/21/19 08:19 Physical Examination Vital signs: Temp Pulse Resp BP Pulse Ox 36.3 C 70 16 131/62 96 06/16/19 12:00 06/16/19 12:00 06/16/19 12:00 06/16/19 12:00 06/16/19 12:00 General appearance: no acute distress Eyes pulmonary: nonicteric ENT: oropharynx moist Auscultation: bilateral: clear Cardiovascular: other (s1 s2 normal) Gastrointestinal: normoactive bowel sounds, non-tender Musculoskeletal: other (right knee joint under dressing) Results - Laboratory Findings CBC and BMP: 06/16/19 13:09 06/15/19 03:52 Abnormal lab findings: Abnormal Labs 06/15/19 06/15/19 03:52 03:52 RBC 3.84 L Hgb 11.9 L Hct 36.1 L RDW 15.6 H RBC Morphology Abnorm A Anisocytosis Few A Uric Acid 8.4 H Albumin 3.1 L Triglycerides 169 H Assessment and Plan - Narrative A/P Narrative: A: 1. Rt TKA surgical wound dehiscence after fall: s/p I&D, with polyethylene liner exchange and antibiotics beads placement - wound was clean contaminated per Dr. Braun - no cultures sent. Given concerns for contamination, but no overt signs of infection or concerning labs (elev WBCs); will plan for few weeks of antibiotics 2. Recurrent falls leading to multiple episodes of wound dehiscence needing multiple liner exchanges, I&Ds since 04/28/2019 - no cultures from Rt TKA available in EMR 3. No sepsis Recommendations: - Stop IV Vanc. Start PO Linezolid 600 mg bid - send ESR and CRP tomorrow - will plan for a 3 week course [stop date 07/06/19] - check CBC, ESR and CRP every 2 weeks, fax results to [phone] - will share ID follow up details tomorrow - send MRSA nasal swab will follow Bebeto Coreas MD Infectious diseases
[2019-06-16] MEDS: SENNOSIDES/DOCUSATE SODIUM 1 TAB TABLET PO SCH (20:23)
[2019-06-16] MEDS: SIMVASTATIN 10 MG TABLET PO SCH (20:43)
[2019-06-16] MEDS: MELATONIN 3 MG TABLET PO PRN (20:50)
[2019-06-16] MEDS: LINEZOLID 600 MG TABLET PO SCH (23:05)
[2019-06-17] MEDS: HYDROcodone/APAP 10/325MG TABLET PO PRN ×2 (00:07→21:40)
[2019-06-17] MEDS: LACTATED RINGERS 1,000 ML IV SCH ×2 (00:15→12:16)
[2019-06-17 06:54] LABS: Basophils # (Auto) 0 K/mcL (0.0-0.3); Basophils % (Auto) 0.2 % (0.0-2.0); Eosinophils # (Auto) 0 K/mcL (0.0-0.7); Eosinophils % (Auto) 0.2 % (0.0-7.0); Granulocytes % (Auto) 73.5 % (38.0-78.0); Hematocrit 32.6 % (41.0-55.0); Hemoglobin 10.7 g/dL (13.5-16.5); Lymphocytes # (Auto) 1.5 K/mcL (1.5-4.8); Lymphocytes % (Auto) 16.5 % (15.5-49.0); Mean Cell Volume 94.3 fL (80.0-100.0); Mean Platelet Volume 8.5 fL (7.4-10.4); Monocytes # (Auto) 0.9 K/mcL (0.1-0.9); Monocytes % (Auto) 9.6 % (1.0-12.0); Platelet Count 205 K/mcL (140-440); RBC 3.45 M/mcL (4.50-5.90); Red Cell Distribution Width 15.3 % (11.5-14.5); WBC 9.2 K/mcL (4.5-11.0)
[2019-06-17 07:20] LABS: ALT/SGPT 10 U/l (0-40); AST/SGOT 12 U/l (0-37); Albumin 3.4 gm/dL (3.2-5.2); Albumin/Globulin Ratio 1.2 (1.0-2.3); Alkaline Phosphatase 88 U/L (39-117); Bilirubin,Direct < 0.2 mg/dL (0.0-0.3); Bilirubin,Total 0.2 mg/dL (0.0-1.0); Blood Urea Nitrogen 20 mg/dl (8-23); Calcium 9.9 mg/dl (8.6-10.4); Carbon Dioxide 22 mmol/L (22-30); Chloride 100 mmol/L (96-108); Globulin 2.8 gm/dL (2.2-3.7); Glomerular Filtration Rate 63; Glucose 152 mg/dL (70-105); Lactate Dehydrogenase 178 U/L (94-250); Phosphorous 3.7 mg/dL (2.7-4.5); Triglycerides 141 mg/dl (<150); Uric Acid 7.9 mg/dL (2.5-8.0)
--- NOTE | 2019-06-17 07:55 | Orthopedic Progress Note ---
Subjective Patient information: Note initiated : 06/17/19 at 7:53 am Service Date, if different from initiated Date: [] Patient: Jovon Padilla 79 y/o M admitted on 06/15/19 for FALL. Chief Complaint: [] Interval history: doing well. no complaints. pain under control Objective Vital signs: Vital Signs Temp Pulse Resp BP Pulse Ox 06/17/19 04:15 97.6 F 60 20 106/63 96 06/16/19 23:09 98.3 F 57 L 22 142/71 96 06/16/19 19:24 98.1 F 57 L 22 134/63 94 06/16/19 16:00 98.0 F 65 16 120/57 94 06/16/19 12:00 97.3 F 70 16 131/62 96 06/16/19 08:00 98.1 F 63 16 123/76 96 Intake and Output 06/16/19 06/17/19 06/17/19 21:59 05:59 13:59 Intake Total 2640 1200 Output Total 460 1025 125 Balance 2180 175 -125 Intake: IV 1000 1000 Lactated Ringers 1,000 ml @ 125 1000 1000 mls/hr IV .Q8H [facility] Rx#: [id number] Oral 1640 200 Output: Void Amount 460 1025 125 Other: Meal Dinner vipin crackers Percent of Meal Consumed 100% 100% Urine Appearance Clear Clear Urine Color Dark Yellow Bright Yellow Urine Odor Normal # Voids 1 Weight 267 lb Intake & Output: Intake & Output 06/16/19 06/17/19 06/17/19 21:59 05:59 13:59 Intake Total 2640 1200 Output Total 460 1025 125 Balance 2180 175 -125 Weight 267 lb Intake: IV 1000 1000 Lactated Ringers 1,000 ml @ 125 1000 1000 mls/hr IV .Q8H [facility] Rx#: [id number] Oral 1640 200 Output: Void Amount 460 1025 125 Other: Meal Dinner vipin crackers Percent of Meal Consumed 100% 100% Urine Appearance Clear Clear Urine Color Dark Yellow Bright Yellow Urine Odor Normal # Voids 1 Incision: Yes healing Incision clean and dry: Yes Dressing: Yes clean, Yes dry, Yes intact Weight bearing status: full Neurological exam IM: Yes abnormal gait, Yes alert, Yes oriented X3, Yes motor sensory intact, Yes neurovascular intact Extremities exam IM: No calf tenderness, Yes Foot pink and warm, Yes neurova scular intact - Labs CBC & BMP: 06/17/19 04:30 06/17/19 04:30 Labs: 06/17/19 06/16/19 06/15/19 04:30 13:09 03:52 Hgb 10.7 L TNP 11.9 L Hct 32.6 L TNP 36.1 L Assessment and Plan (1) Wound dehiscence, surgical pod 1 s/p liner exchange, beads, i and d wbat in brace pt rom 0-60 pain control rehab saturday Status: Acute Qualifiers: Encounter type: initial encounter Qualified Code(s): T81.31XA - Disruption of external operation (surgical) wound, not elsewhere classified, initial encounter
--- NOTE | 2019-06-17 07:56 | Discharge Summary ---
Ortho Discharge - TKA - Patient Instructions Diet: Regular Diet Activity: ambulate with assistive device, weight bearing as tolerated (with brace on) Total Knee Protocol: For Total Knee: Start ROM MYNOR with stationary bike or rocking chair. Work on gaining full extension of knee. Posterior dislocation precautions provided. Hip abductor strengthening and gait training instructions provided. Apply Cryocuff as instructed. Dressing Care: May shower in 2 days, Aquacel Ag - leave on for 5 days - Problem Maintenance (1) Wound dehiscence, surgical Status: Acute Qualifiers: Encounter type: initial encounter Qualified Code(s): T81.31XA - Disruption of external operation (surgical) wound, not elsewhere classified, initial encoun ter - Follow Up Plan Follow Up Appointments: J Luis Rodriguez MD [Primary Care Provider] - Disposition: Xfer SNF Prognosis: Good Rehab Potential: Good I certify that the patient requires SNF services: Yes Overall status at discharge: patient is progressing back to baseline
[2019-06-17] MEDS: VIT A,C & E/LUTEIN/MINERALS TABLET PO SCH (09:17)
[2019-06-17] MEDS: FERROUS SULFATE 325 MG TABLET PO SCH (09:17)
[2019-06-17] MEDS: LINEZOLID 600 MG TABLET PO SCH ×2 (09:17→21:40)
[2019-06-17] MEDS: VITAMIN D3 5,000 UNIT CAPSULE PO SCH (09:18)
[2019-06-17] MEDS: VERAPAMIL 120 MG TAB.XL.24H PO SCH (09:18)
[2019-06-17] MEDS: FUROSEMIDE 40 MG TABLET PO SCH (09:18)
[2019-06-17] MEDS: MULTIVIT,THER IRON,CA,FA & MIN 1 TABLET PO SCH (09:18)
[2019-06-17] MEDS: FAMOTIDINE 20 MG TABLET PO SCH (09:18)
[2019-06-17] MEDS: ASPIRIN 81 MG TAB.CHEW PO SCH ×2 (09:18→21:40)
[2019-06-17] MEDS: MUPIROCIN OINT 2% 22GM NARES SCH ×2 (09:19→21:40)
[2019-06-17] MEDS: 0.9 % SODIUM CHLORIDE 10 ML SYRINGE IV SCH ×3 (09:19→22:20)
[2019-06-17] MEDS: DOCUSATE SODIUM 100 MG CAPSULE PO SCH ×2 (09:19→21:51)
--- NOTE | 2019-06-17 10:45 | Infectious Disease Prog Note ---
Subjective Patient information: Note initiated : 06/17/19 at 10:43 am Service Date, if different from initiated Date: [] Patient: Jovon Padilla 79 y/o M admitted on 06/15/19 for FALL. Chief Complaint: [] Interval history: Pt is doing better. He was able to work with PT. Denied any fever, chills, n/v, diarrhea. Discussed ID f/u appt date, and plan to do 3 weeks of PO Linezolid. Also answered 's questions about how MRSA emerges and transmitted. Objective Objective Narrative: ao x 3, in nad chest cta s1 s2 normal, no murmurs heard bs ++, nttd the right knee is in dressing per Ortho - Vital Signs Vital signs: Vital Signs Temp Pulse Resp BP Pulse Ox 06/17/19 08:00 36.2 C 90 20 136/83 93 06/17/19 04:15 36.4 C 60 20 106/63 96 06/16/19 23:09 36.8 C 57 L 22 142/71 96 06/16/19 19:24 36.7 C 57 L 22 134/63 94 06/16/19 16:00 36.7 C 65 16 120/57 94 06/16/19 12:00 36.3 C 70 16 131/62 96 Intake and Output 06/16/19 06/17/19 06/17/19 21:59 05:59 13:59 Intake Total 2640 1200 240 Output Total 460 1025 475 Balance 2180 175 -235 Intake: IV 1000 1000 Lactated Ringers 1,000 ml @ 125 1000 1000 mls/hr IV .Q8H [facility] Rx#: [id number] Oral 1640 200 240 Output: Void Amount 460 1025 475 Other: Meal Dinner vipin crackers Breakfast Percent of Meal Consumed 100% 100% 100% Feeding Ability Independent Urine Appearance Clear Clear Clear Urine Color Dark Yellow Bright Yellow Pale Urine Odor Normal Normal # Voids 1 Weight 121.109 kg Intake & Output: Intake & Output 06/16/19 06/17/19 06/17/19 21:59 05:59 13:59 Intake Total 2640 1200 240 Output Total 460 1025 475 Balance 2180 175 -235 Weight 121.109 kg Intake: IV 1000 1000 Lactated Ringers 1,000 ml @ 125 1000 1000 mls/hr IV .Q8H [facility] Rx#: [id number] Oral 1640 200 240 Output: Void Amount 460 1023 609 Other: Meal Dinner vipin crackers Breakfast Percent of Meal Consumed 100% 100% 100% Feeding Ability Independent Urine Appearance Clear Clear Clear Urine Color Dark Yellow Bright Yellow Pale Urine Odor Normal Normal # Voids 1 - Lab 06/17/19 04:30 06/17/19 04:30 Most recent lab results Calcium 9.9 mg/dl (8.6-10.4) 06/17/19 04:30 Phosphorus 3.7 mg/dL (2.7-4.5) 06/17/19 04:30 Magnesium 1.8 mg/dL (1.6-2.5) 06/17/19 04:30 Microbiology 06/16/19 23:20 Nose - Both Right and Left MRSA (PCR) - Final MRSA PCR positive Medications Active Medications: Acetaminophen (Tylenol) 650 mg PO Q4-6HP PRN PRN Reason: PAIN/FEVER > 101 Hydrocodone Bitart/Acetaminophen ([place] 10/325mg) 1 - 2 tab PO Q4HP PRN PRN Reason: Pain Last Admin: 06/17/19 00:07 Dose: 1 tab Documented by: Admin: 06/16/19 10:52 Dose: 1 tab Documented by: Admin: 06/16/19 04:42 Dose: 1 tab Documented by: Admin: 06/16/19 02:07 Dose: 1 tab Documented by: ALDO Aspirin (Aspirin) 81 mg PO BID [facility] Last Admin: 06/17/19 09:18 Dose: 81 mg Documented by: Admin: 06/16/19 20:43 Dose: 81 mg Documented by: Admin: 06/16/19 10:53 Dose: 81 mg Documented by: Admin: 06/15/19 23:16 Dose: 81 mg Documented by: ALDO Docusate Sodium (Colace) 100 mg PO BID [facility] Last Admin: 06/17/19 09:19 Dose: Not Given Documented by: SHELIA Non-Admin Reason: Patient Refused Admin: 06/16/19 20:23 Dose: Not Given Documented by: ALDO Non-Admin Reason: Patient Refused Admin: 06/16/19 10:54 Dose: Not Given Documented by: ELADIO Non-Admin Reason: Patient Refused Admin: 06/15/19 23:17 Dose: Not Given Documented by: ALDO Non-Admin Reason: Patient Refused Famotidine (Pepcid) 20 mg PO DAILY [facility] Last Admin: 06/17/19 09:18 Dose: 20 mg Documented by: Admin: 06/16/19 10:53 Dose: 20 mg Documented by: ELADIO Ferrous Sulfate (Ferrous Sulfate) 650 mg PO [facility] Last Admin: 06/17/19 09:17 Dose: 650 mg Documented by: Admin: 06/16/19 10:51 Dose: 650 mg Documented by: ELADIO Furosemide (Lasix) 80 mg PO DAILY [facility] Last Admin: 06/17/19 09:18 Dose: 80 mg Documented by: Admin: 06/16/19 10:51 Dose: 80 mg Documented by: ELADIO Hydromorphone HCl (Dilaudid) 0 mg IV Q4HP PRN PRN Reason: PAIN LEVEL > 6 Magnesium Sulfate (Magnesium Sulfate) 2 gm in 50 mls @ 50 mls/hr IV UD PRN PRN Reason: MG = or < 1.7 Acetaminophen (Ofirmev) 1,000 mg in 100 mls @ 200 mls/hr IV Q6HP PRN PRN Reason: PAIN/FEVER > 101 Lactated Ringer's (Lactated Ringers) 1,000 mls @ 125 mls/hr IV .Q8H [facility] Admin: 06/17/19 00:15 Dose: 125 mls/hr Documented by: Infusion: 06/16/19 23:17 Dose: 125 mls/hr Documented by: Admin: 06/16/19 15:17 Dose: 125 mls/hr Documented by: Infusion: 06/16/19 14:43 Dose: 0 mls/hr Documented by: Admin: 06/16/19 05:28 Dose: 125 mls/hr Documented by: Infusion: 06/16/19 04:33 Dose: 125 mls/hr Documented by: Admin: 06/15/19 21:21 Dose: 125 mls/hr Documented by: ALDO Iron Carb/Multivit/Adobe Architect/Folic Acid (Multivitamin W/Minerals) 1 tab PO DAILY [facility] Last Admin: 06/17/19 09:18 Dose: 1 tab Documented by: Admin: 06/16/19 10:52 Dose: 1 tab Documented by: ELADIO Linezolid (Zyvox) 600 mg PO Q12 [facility]; Protocol Last Admin: 06/17/19 09:17 Dose: 600 mg Documented by: Admin: 06/16/19 23:05 Dose: 600 mg Documented by: ALDO Melatonin (Melatonin 3mg Tablet) 3 mg PO HSP PRN PRN Reason: Insomnia Last Admin: 06/16/19 20:50 Dose: 3 mg Documented by: ALDO Multivitamins/Minerals (Ocuvite) 1 tab PO DAILY [facility] Last Admin: 06/17/19 09:17 Dose: 1 tab Documented by: Admin: 06/16/19 10:52 Dose: 1 tab Documented by: ELADIO Mupirocin (Bactroban Oint 2%) 1 dose NARES BID [facility] Last Admin: 06/17/19 09:19 Dose: 1 dose Documented by: SHELIA Ondansetron HCl (Zofran) 4 mg IV Q4-6HP PRN PRN Reason: Nausea And Vomiting Potassium Chloride (Klor-Con) 40 meq PO DAILYP PRN PRN Reason: K+ < 3.5 Senna/Docusate Sodium (Senna Plus Tablet) 1 tab PO HS [facility] Last Admin: 06/16/19 20:23 Dose: Not Given Documented by: ALDO Non-Admin Reason: Patient Refused Admin: 06/15/19 23:17 Dose: Not Given Documented by: ALDO Non-Admin Reason: Patient Refused Simvastatin (Zocor) 10 mg PO HS [facility] Last Admin: 06/16/19 20:43 Dose: 10 mg Documented by: Admin: 06/15/19 23:16 Dose: 10 mg Documented by: ALDO Sodium Chloride (Saline Flush) 10 ml IV Q8 [facility] Last Admin: 06/17/19 09:19 Dose: 10 ml Documented by: Admin: 06/16/19 20:24 Dose: Not Given Documented by: ALDO Non-Admin Reason: Bag Still Infusing Admin: 06/16/19 14:44 Dose: Not Given Documented by: ELADIO Non-Admin Reason: Continuous IV Admin: 06/16/19 05:55 Dose: Not Given Documented by: ALDO Non-Admin Reason: Bag Still Infusing Admin: 06/15/19 23:07 Dose: Not Given Documented by: ALDO Non-Admin Reason: Bag Still Infusing Verapamil HCl (Calan Sr) 240 mg PO DAILY [facility] Last Admin: 06/17/19 09:18 Dose: 240 mg Documented by: Admin: 06/16/19 10:55 Dose: 240 mg Documented by: ELADIO Vitamin D (Vitamin D3) 5,000 unit PO DAILY [facility] Last Admin: 06/17/19 09:18 Dose: 5,000 unit Documented by: Admin: 06/16/19 10:56 Dose: 5,000 unit Documented by: ELADIO Assessment and Plan - Narrative A/P Narrative: A: 1. Rt TKA surgical wound dehiscence after fall: POD 2, s/p I&D, with polyethylene liner exchange and antibiotics beads placement - wound was clean contaminated per Dr. Barun - no cultures sent. Given concerns for contamination, but no overt signs of infection or concerning labs (elev WBCs); will plan for 3 weeks of antibiotics 2. Recurrent falls leading to multiple episodes of wound dehiscence needing multiple liner exchanges, I&Ds since 04/28/2019 - no cultures from Rt TKA available in EMR 3. No sepsis 4. 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
[2019-06-17] MEDS: SIMVASTATIN 10 MG TABLET PO SCH (21:40)
[2019-06-17] MEDS: SENNOSIDES/DOCUSATE SODIUM 1 TAB TABLET PO SCH (21:51)
[2019-06-18] MEDS: MELATONIN 3 MG TABLET PO PRN ×2 (02:13→20:25)
--- NOTE | 2019-06-18 07:02 | Orthopedic Progress Note ---
Subjective Patient information: Note initiated : 06/18/19 at 7:00 am Service Date, if different from initiated Date: [] Patient: Jovon Padilla 79 y/o M admitted on 06/15/19 for FALL. Chief Complaint: [POD #3 s/p right knee I&D Patient doing well mostly. Denies pain, CP, SOB, numbness, tingling.] Objective Vital signs: Vital Signs Temp Pulse Resp BP BP Pulse Ox 06/18/19 03:48 97.5 F 80 20 126/70 95 06/17/19 23:09 96.6 F L 68 20 116/56 94 06/17/19 19:15 96.9 F L 69 20 130/60 97 06/17/19 16:00 96.9 F L 63 20 122/62 96 06/17/19 12:00 96.9 F L 97 H 20 112/60 96 06/17/19 08:00 97.1 F 90 20 136/83 93 Intake and Output 06/17/19 06/18/19 06/18/19 21:59 05:59 13:59 Intake Total 840 350 Output Total 1475 500 Balance -635 -150 Intake: Oral 840 350 Output: Void Amount 1475 500 Other: Meal Dinner Percent of Meal Consumed 100% Urine Appearance Clear Clear Urine Color Pale Pale Weight 269 lb Intake & Output: Intake & Output 06/17/19 06/18/19 06/18/19 21:59 05:59 13:59 Intake Total 840 350 Output Total 1475 500 Balance -635 -150 Weight 269 lb Intake: Oral 840 350 Output: Void Amount 1475 500 Other: Meal Dinner Percent of Meal Consumed 100% Urine Appearance Clear Clear Urine Color Pale Pale Incision: Yes healing, No draining, No red, No swollen, No inflamed, Yes clean and dry Incision clean and dry: Yes Dressing: Yes clean, Yes dry, Yes intact Weight bearing status: as tolerated Neurological exam IM: Yes alert, Yes oriented X3, Yes motor sensory intact, Yes neurovascular intact Extremities exam IM: Yes normal capillary refill, Yes Foot pink and warm, Yes neurovascular intact - Periperhal Pulses Peripheral pulses: 2+: dorsalis pedis (L), dorsalis pedis (R), posterior tibialis (L), posterior tibialis (R) - Labs CBC & BMP: 06/17/19 04:30 06/17/19 04:30 Labs: 06/18/19 06/17/19 06/16/19 04:40 04:30 13:09 Hgb Pending 10.7 L TNP Hct Pending 32.6 L TNP 06/15/19 03:52 Hgb 11.9 L Hct 36.1 L Assessment and Plan (1) Wound dehiscence POD #3 s/p right knee I&D with polyliner exchange: -d/c planning to SNF today or tomorrow -PO Linezolid per Dr. Coreas -brace at all times, locked in extension. PT may do exercises 0-90 deg. Brace on for ambulation and in bed -pain control -WBAT with brace f/u in office 10-14 days for PO Status: Acute (2) Status post knee replacement Status: Acute Qualifiers: Laterality: bilateral Qualified Code(s): Z96.653 - Presence of artificial knee joint, bilateral (3) Wound dehiscence, surgical Status: Acute Qualifiers: Encounter type: initial encounter Qualified Code(s): T81.31XA - Disruption of external operation (surgical) wound, not elsewhere classified, initial encounter
[2019-06-18 07:06] LABS: Basophils # (Auto) 0 K/mcL (0.0-0.3); Basophils % (Auto) 0.6 % (0.0-2.0); Eosinophils # (Auto) 0.2 K/mcL (0.0-0.7); Eosinophils % (Auto) 2.2 % (0.0-7.0); Granulocytes % (Auto) 61.1 % (38.0-78.0); Hematocrit 31.1 % (41.0-55.0); Hemoglobin 10.3 g/dL (13.5-16.5); Lymphocytes # (Auto) 1.7 K/mcL (1.5-4.8); Lymphocytes % (Auto) 25.4 % (15.5-49.0); Mean Cell Volume 93.9 fL (80.0-100.0); Mean Corpuscular HGB Conc 33.1 g/dL (31.0-36.0); Mean Platelet Volume 8.5 fL (7.4-10.4); Monocytes # (Auto) 0.7 K/mcL (0.1-0.9); Monocytes % (Auto) 10.7 % (1.0-12.0); Platelet Count 202 K/mcL (140-440); RBC 3.31 M/mcL (4.50-5.90); Red Cell Distribution Width 15.6 % (11.5-14.5); WBC 6.9 K/mcL (4.5-11.0)
[2019-06-18 07:18] LABS: ALT/SGPT 10 U/l (0-40); AST/SGOT 10 U/l (0-37); Albumin 3.2 gm/dL (3.2-5.2); Albumin/Globulin Ratio 1.1 (1.0-2.3); Alkaline Phosphatase 75 U/L (39-117); Bilirubin,Direct < 0.2 mg/dL (0.0-0.3); Bilirubin,Total 0.2 mg/dL (0.0-1.0); Blood Urea Nitrogen 19 mg/dl (8-23); Calcium 9.3 mg/dl (8.6-10.4); Carbon Dioxide 27 mmol/L (22-30); Chloride 98 mmol/L (96-108); Globulin 2.8 gm/dL (2.2-3.7); Glomerular Filtration Rate 52; Glucose 109 mg/dL (70-105); Lactate Dehydrogenase 157 U/L (94-250); Phosphorous 4.7 mg/dL (2.7-4.5); Triglycerides 137 mg/dl (<150); Uric Acid 9.3 mg/dL (2.5-8.0)
--- NOTE | 2019-06-18 08:08 | Internal Med Progress Note ---
Medical - PN: Subj Patient information: Note initiated : 06/17/19 at 8:06 am Service Date, if different from initiated Date: [] Patient: Jovon Padilla 79 y/o M admitted on 06/15/19 for FALL. Chief Complaint: [] Interval history: Mr. Padilla is a 79 year old M with a recent history of right knee arthroplasty 04/28. He had had 3 recent hospitalizations following falls and subsequent wound dehiscence managed with right knee irrigation/liner exchange and 2 weeks antibiotics. He was also admitted recently for A. fib RVR. He continues to experience recurrent falls. This evening he was trying to get out of bathroom and slipped on a towel and again opened up the incision site at his right knee surgery area. Patient comes to the ER and subsequently orthopedics were consulted. Hospitalist services requested for admission. Initial work-up was essentially unremarkable. At the time of evaluation patient is alert and oriented. He was able to endorse history as above. He denies blistering events including lightheadedness dizziness chest palpitation or loss of consciousness. 06/15-patient due for surgery. No overnight events. DC IV fluids. Keep n.p.o. Pain adequately controlled. Restart home medications. Review postoperatively. No family at bedside. Await further orthopedic recommendations 06/16-patient now postop day 2. Doing well. No significant pain. Continues to resist SNF transfer despite multiple falls and recurrent wound dehiscence x5. Will continue further discussions due to safety issues and inability to take care of self. On IV vancomycin per orthopedics. Continue postoperative rehab 06/17-patient doing well. Postop day 3. No overnight events. Ongoing physiotherapy. Anticipate discharge in 24 to 48 hours ID recommends oral Zyvox on discharge for 21 days. Continue postop management per orthopedics. Pain in good control. No overnight fever chills or concerns per staff - Constitutional Vitals: Vital Signs Temp Pulse Resp BP Pulse Ox 97.5 F 80 20 126/70 95 06/18/19 03:48 06/18/19 07:53 06/18/19 03:48 06/18/19 03:48 06/18/19 03:48 Period Temp Pulse Resp BP Sys/Donald Pulse Ox Last 24 Hr 96.6 F-97.5 F 63-97 20-20 112-130/56-70 94-97 Intake and Output 06/17/19 06/18/19 06/18/19 21:59 05:59 13:59 Intake Total 840 350 Output Total 1475 500 Balance -635 -150 Weight 269 lb Intake & Output: Intake & Output 06/17/19 06/18/19 06/18/19 21:59 05:59 13:59 Intake Total 840 350 Output Total 1475 500 Balance -635 -150 Weight 269 lb Intake: Oral 840 350 Output: Void Amount 1475 500 Other: Meal Dinner Percent of Meal Consumed 100% Urine Appearance Clear Clear Urine Color Pale Pale General appearance: no acute distress Exam: Alert oriented Nonlabored breathing Right TKA dressing intact No anxiety Medical - PN: Obj Da - Labs CBC & Chem 7: 06/18/19 04:40 06/18/19 04:40 Labs: Abnormal Lab Results 06/18/19 06/18/19 06/17/19 04:40 04:40 04:30 RBC 3.31 L Hgb 10.3 L Hct 31.1 L RDW 15.6 H ESR Creatinine 1.3 H Glucose 109 H Uric Acid 9.3 H Phosphorus 4.7 H C-Reactive Protein 2.8 H 06/17/19 06/17/19 06/17/19 04:30 04:30 04:30 RBC 3.45 L Hgb 10.7 L Hct 32.6 L RDW 15.3 H ESR 21 H Creatinine Glucose 152 H Uric Acid Phosphorus C-Reactive Protein Meds: Medications Acetaminophen (Tylenol) 650 mg PO Q4-6HP PRN PRN Reason: PAIN/FEVER > 101 Hydrocodone Bitart/Acetaminophen ([place] 10/325mg) 1 - 2 tab PO Q4HP PRN PRN Reason: Pain Last Admin: 06/17/19 21:40 Dose: 1 tab Documented by: Aspirin (Aspirin) 81 mg PO BID [facility] Last Admin: 06/17/19 21:40 Dose: 81 mg Documented by: Docusate Sodium (Colace) 100 mg PO BID [facility] Last Admin: 06/17/19 21:51 Dose: 100 mg Documented by: Famotidine (Pepcid) 20 mg PO DAILY [facility] Last Admin: 06/17/19 09:18 Dose: 20 mg Documented by: Ferrous Sulfate (Ferrous Sulfate) 650 mg PO [facility] Last Admin: 06/17/19 09:17 Dose: 650 mg Documented by: Furosemide (Lasix) 80 mg PO DAILY [facility] Last Admin: 06/17/19 09:18 Dose: 80 mg Documented by: Hydromorphone HCl (Dilaudid) 0 mg IV Q4HP PRN PRN Reason: PAIN LEVEL > 6 Magnesium Sulfate (Magnesium Sulfate) 2 gm in 50 mls @ 50 mls/hr IV UD PRN PRN Reason: MG = or < 1.7 Acetaminophen (Ofirmev) 1,000 mg in 100 mls @ 200 mls/hr IV Q6HP PRN PRN Reason: PAIN/FEVER > 101 Iron Carb/Multivit/House/Folic Acid (Multivitamin W/Minerals) 1 tab PO DAILY [facility] Last Admin: 06/17/19 09:18 Dose: 1 tab Documented by: Linezolid (Zyvox) 600 mg PO Q12 [facility]; Protocol Last Admin: 06/17/19 21:40 Dose: 600 mg Documented by: Melatonin (Melatonin 3mg Tablet) 3 mg PO HSP PRN PRN Reason: Insomnia Last Admin: 06/18/19 02:13 Dose: 3 mg Documented by: Multivitamins/Minerals (Ocuvite) 1 tab PO DAILY [facility] Last Admin: 06/17/19 09:17 Dose: 1 tab Documented by: Mupirocin (Bactroban Oint 2%) 1 dose NARES BID [facility] Last Admin: 06/17/19 21:40 Dose: 1 dose Documented by: Ondansetron HCl (Zofran) 4 mg IV Q4-6HP PRN PRN Reason: Nausea And Vomiting Potassium Chloride (Klor-Con) 40 meq PO DAILYP PRN PRN Reason: K+ < 3.5 Senna/Docusate Sodium (Senna Plus Tablet) 1 tab PO HS [facility] Last Admin: 06/17/19 21:51 Dose: 1 tab Documented by: Simvastatin (Zocor) 10 mg PO [facility] Last Admin: 06/17/19 21:40 Dose: 10 mg Documented by: Sodium Chloride (Saline Flush) 10 ml IV Q8 [facility] Last Admin: 06/17/19 22:20 Dose: 10 ml Documented by: Verapamil HCl (Calan Sr) 240 mg PO DAILY [facility] Last Admin: 06/17/19 09:18 Dose: 240 mg Documented by: Vitamin D (Vitamin D3) 5,000 unit PO DAILY [facility] Last Admin: 06/17/19 09:18 Dose: 5,000 unit Documented by: Medical - PN: A/P - Time Spent With Patient Total time spent is greater than 50% in coordination of care (as documented) at patient's floor/unit and/or counseling patient: 15 - 24 minutes (1) Wound dehiscence, surgical Status: Acute Assessment and plan: * Right TKA with wound dehiscence-continue IV vancomycin. ID recommends oral Zyvox on discharge for 21 days * Pain management well controlled on as needed opioid. * History of paroxysmal atrial fibrillation -rate controlled on verapamil. Chads score 3 but not on anticoagulation. patient follows up with [place] cardiology Dr. Omari Miranda and is currently on aspirin for CVA prophylaxis. * [id number] on lisinopril/verapamil * Bilateral lower extremity lymphedema-on home dose scheduled Lasix * Hyperlipidemia -continue statin * Iron deficiency anemia-continue home dose ferrous sulfate * GERD continue ranitidine * COPD continue bronchodilators as needed * Prophylaxis per orthopedics Plan * Continue postoperative care per orthopedics * Daily PT OT/nutrition support * Antibiotics as per ID * Prior medical condition management on home meds * Patient will likely transfer to SNF in 24 hours Current Visit: No
[2019-06-18] MEDS: VITAMIN D3 5,000 UNIT CAPSULE PO SCH (08:32)
[2019-06-18] MEDS: VERAPAMIL 120 MG TAB.XL.24H PO SCH (08:32)
[2019-06-18] MEDS: VIT A,C & E/LUTEIN/MINERALS TABLET PO SCH (08:32)
[2019-06-18] MEDS: FUROSEMIDE 40 MG TABLET PO SCH (08:33)
[2019-06-18] MEDS: ASPIRIN 81 MG TAB.CHEW PO SCH ×2 (08:33→20:24)
[2019-06-18] MEDS: FERROUS SULFATE 325 MG TABLET PO SCH (08:33)
[2019-06-18] MEDS: MULTIVIT,THER IRON,CA,FA & MIN 1 TABLET PO SCH (08:33)
[2019-06-18] MEDS: LINEZOLID 600 MG TABLET PO SCH ×2 (08:33→20:24)
[2019-06-18] MEDS: DOCUSATE SODIUM 100 MG CAPSULE PO SCH ×2 (08:33→20:24)
[2019-06-18] MEDS: FAMOTIDINE 20 MG TABLET PO SCH (08:34)
[2019-06-18] MEDS: 0.9 % SODIUM CHLORIDE 10 ML SYRINGE IV SCH ×3 (08:36→20:25)
[2019-06-18] MEDS: MUPIROCIN OINT 2% 22GM NARES SCH ×2 (09:09→20:25)
--- NOTE | 2019-06-18 10:57 | Discharge Summary ---
Medical - DS: Prov Patient information: Note initiated : 06/18/19 at 10:55 am Service Date, if different from initiated Date: [] Patient: Jovon Padilla 79 y/o M admitted on 06/15/19 for FALL. Chief Complaint: [] Date of admission: 06/15/19 19:30 Discharge date: 06/18/19 Primary care physician: J Luis Rodriguez Consults: 06/15/19 20:41 Consult to Physician [CONS] Routine Comment: Consulting Provider: Bebeto Coreas Reason For Exam: Physician to Consult Medical - DS: Meds - Discharge Medications Prescriptions: Aspirin [Ecotrin] 81 mg PO BID #60 tab.ec Transmission Status: Received by [id number] HYDROcodone/APAP 10/325MG [[place] 10-325Mg] 1 - 2 tab PO Q4H PRN #60 tab PRN Reason: Pain Prescription Printed Linezolid [Zyvox] 600 mg PO Q12 #42 tab Transmission Status: Received by [facility] Active and Home Medications: Home Medications Ferrous Sulfate [Feosol] 650 mg PO DAILY 04/22/19 [History Confirmed 06/14/19 Last Taken 06/13/19] Furosemide [Lasix] 80 mg PO DAILY 04/22/19 [History Confirmed 06/14/19 Last Taken 06/13/19] Lovastatin 40 mg PO HS 04/22/19 [History Confirmed 06/14/19 Last Taken 06/13/19] Ranitidine HCl [Acid Engineering Surveyor] 150 mg PO DAILY 04/22/19 [History Confirmed 06/15/19 Last Taken 06/13/19] Verapamil [Calan Sr] 240 mg PO DAILY 04/22/19 [History Confirmed 06/14/19 Last Taken 06/13/19] Vit A,C & E/Lutein/Minerals [Ocuvite] 1 tab PO DAILY 04/22/19 [History Confirmed 06/15/19 Last Taken 06/13/19] Vitamin D3 5,000 unit PO DAILY 04/22/19 [History Confirmed 06/14/19 Last Taken 06/13/19] Aspirin [Ecotrin] 81 mg PO BID #30 tab.ec 05/23/19 [Rx Confirmed 06/14/19 Last Taken 06/13/19] HYDROcodone/APAP 10/325MG [[place] 10-325Mg] 1 - 2 tab PO Q4H PRN #60 tab 05/23/19 [Rx Confirmed 06/14/19 Last Taken 06/13/19] Aspirin [Ecotrin] 81 mg PO BID #60 tab.ec 06/17/19 [Rx Last Taken Unknown] HYDROcodone/APAP 10/325MG [[place] 10-325Mg] 1 - 2 tab PO Q4H PRN #60 tab 06/17/19 [Rx Last Taken Unknown] Linezolid [Zyvox] 600 mg PO Q12 #42 tab 06/18/19 [Rx Last Taken Unknown] Medical - DS: Hosp Hospital Course: Discharge diagnosis * Right TKA with wound dehiscence-postop day 3. Doing well. Continue Zyvox for 20 days. Continue aggressive PT OT/maintain fall risk at SNF. Follow-up orthopedics as outpatient. * Pain management well controlled * History of paroxysmal atrial fibrillation -rate controlled on verapamil. Chads score 3 but not on anticoagulation. patient follows up with [place] cardiology Dr. Omari Miranda and is currently on aspirin for CVA prophylaxis. * HTN-continue home dose lisinopril/verapamil * Bilateral lower extremity lymphedema-continue home dose scheduled Lasix * Hyperlipidemia -continue statin * Iron deficiency anemia-continue home dose ferrous sulfate * GERD continue ranitidine * COPD continue bronchodilators as needed * Prophylaxis per orthopedics Brief hospital course Mr. Padilla is a 79 year old M with a recent history of right knee arthroplasty 04/28. He had had 3 recent hospitalizations following falls and subsequent wound dehiscence managed with right knee irrigation/liner exchange and 2 weeks antibiotics. He was also admitted recently for A. fib RVR. He continues to experience recurrent falls. This evening he was trying to get out of bathroom and slipped on a towel and again opened up the incision site at his right knee surgery area. Patient comes to the ER and subsequently orthopedics were consulted. Hospitalist services requested for admission. Initial work-up was essentially unremarkable. At the time of evaluation patient is alert and oriented. He was able to endorse history as above. He denies blistering events including lightheadedness dizziness chest palpitation or loss of consciousness. 06/15-patient due for surgery. No overnight events. DC IV fluids. Keep n.p.o. Pain adequately controlled. Restart home medications. Review postoperatively. No family at bedside. Await further orthopedic recommendations 06/16-patient now postop day 2. Doing well. No significant pain. Continues to resist SNF transfer despite multiple falls and recurrent wound dehiscence x5. Will continue further discussions due to safety issues and inability to take care of self. On IV vancomycin per orthopedics. Continue postoperative rehab 06/17-patient doing well. Postop day 3. No overnight events. Ongoing physiotherapy. Anticipate discharge in 24 to 48 hours ID recommends oral Zyvox on discharge for 21 days. Continue postop management per orthopedics. Pain in good control. No overnight fever chills or concerns per staff 06/18-patient doing well. No overnight events. Ongoing physical therapy. Patient will likely discharge to SNF/advanced care for continued posthospital ization rehab in the next 24 hours. Continue Zyvox for 21 days as per ID. 06/19-patient will likely discharge today to SNF. Await coordination by case management. Continue Zyvox for additional 20 days as per ID recommendations. Continue follow-up with orthopedics. No overnight fever chills. Continue dietary nutrition support at SNF. Discharge diagnosis: . - Time Spent with Patient Total time spent providing and/or coordinating discharge services: Greater than 30 minutes Medical - DS: Exam - Constitutional Vitals: Vital Signs Temp Pulse Resp BP BP Pulse Ox 06/18/19 08:00 97.2 F 89 20 143/73 96 06/18/19 07:53 80 06/18/19 03:48 97.5 F 80 20 126/70 95 06/17/19 23:09 96.6 F L 68 20 116/56 94 06/17/19 19:15 96.9 F L 69 20 130/60 97 06/17/19 16:00 96.9 F L 63 20 122/62 96 06/17/19 12:00 96.9 F L 97 H 20 112/60 96 Intake and Output 06/17/19 06/18/19 06/18/19 21:59 05:59 13:59 Intake Total 840 350 360 Output Total 1475 500 500 Balance -635 -150 -140 Intake: Oral 840 350 360 Output: Void Amount 1475 500 500 Other: Meal Dinner Breakfast Percent of Meal Consumed 100% 100% Feeding Ability Independent Urine Appearance Clear Clear Urine Color Pale Pale Weight 269 lb Medical - DS: Data Labs on day of discharge: Labs from last 24 hours 06/18/19 06/18/19 06/17/19 04:40 04:40 04:30 WBC 6.9 RBC 3.31 L Hgb 10.3 L Hct 31.1 L MCV 93.9 MCH 31.1 MCHC 33.1 RDW 15.6 H Plt Count 202 MPV 8.5 Gran % 61.1 Lymph % (Auto) 25.4 Mclennan % (Auto) 10.7 Eos % (Auto) 2.2 Baso % (Auto) 0.6 Gran # 4.2 Lymph # (Auto) 1.7 Mclennan # (Auto) 0.7 Eos # (Auto) 0.2 Baso # (Auto) 0 ESR Sodium 138 Potassium 3.9 Chloride 98 Carbon Dioxide 27 Anion Gap 13.0 BUN 19 Creatinine 1.3 H GFR Calculation 52 Glucose 109 H Uric Acid 9.3 H Calcium 9.3 Phosphorus 4.7 H Magnesium 1.6 Total Bilirubin 0.2 Direct Bilirubin < 0.2 GGT 21 AST 10 ALT 10 Alkaline Phosphatase 75 Lactate Dehydrogenase 157 C-Reactive Protein 2.8 H Total Protein 6.0 Albumin 3.2 Globulin 2.8 Albumin/Globulin Ratio 1.1 Triglycerides 137 06/17/19 04:30 WBC RBC Hgb Hct MCV MCH MCHC RDW Plt Count MPV Gran % Lymph % (Auto) Mclennan % (Auto) Eos % (Auto) Baso % (Auto) Gran # Lymph # (Auto) Mclennan # (Auto) Eos # (Auto) Baso # (Auto) ESR 21 H Sodium Potassium Chloride Carbon Dioxide Anion Gap BUN Creatinine GFR Calculation Glucose Uric Acid Calcium Phosphorus Magnesium Total Bilirubin Direct Bilirubin GGT AST ALT Alkaline Phosphatase Lactate Dehydrogenase C-Reactive Protein Total Protein Albumin Globulin Albumin/Globulin Ratio Triglycerides Medical - DS: A/P - Patient/Caregiver Discharge Instructions Activity: as per physical therapy Diet: Regular Diet Additional Instructions: Discharge Instructions: Ambulate with assistance devisce. Weight bearing as tolerated with brace on. Wear the leg brace at all times, lock in extension. Brace on for ambulation and in bed. Use your cryocuff and leg elevation to help with pain and swelling. Leave the Aquacel Ag dressing in place for another 5 days. May shower. No soaking in tub/pool/jacuzzi. Continue Zyvox for 21 days PT OT eval and treatment Continue fall risk Nutrition support Prescriptions: Aspirin [Ecotrin] 81 mg PO BID #60 tab.ec Transmission Status: Received by [id number] HYDROcodone/APAP 10/325MG [[place] 10-325Mg] 1 - 2 tab PO Q4H PRN #60 tab PRN Reason: Pain Prescription Printed Linezolid [Zyvox] 600 mg PO Q12 #42 tab Transmission Status: Received by [facility] Other Amb Orders: OT Discharge Order Location: None Selected Physical Therapy at Discharge - TKA Location: None Selected Toilet Riser Discharge Order Location: None Selected Walker Location: None Selected - Problem Maintenance (1) Wound dehiscence, surgical Status: Acute Qualifiers: Encounter type: initial encounter Qualified Code(s): T81.31XA - Disruption of external operation (surgical) wound, not elsewhere classified, initial encounter - Follow up Plan Follow up with: Bebeto Coreas MD [Physician] - 07/07/19 2:00 pm J Luis Rodriguez MD [Primary Care Provider] - (Please call and schedule a hospital follow up appointment.) Jovon Coleman MD [Physician] - 06/29/19 10:00 am Disposition: Xfer SNF Care Plan Goals: This discharge packet is provided to you to help keep you informed about your care. We want to ensure you get everything you need when you go home. You will also be receiving a call from us in a few days to follow up with you and see how you are doing since your discharge. This gives us a chance to listen to any concerns you maybe experiencing since you were discharged or any additional needs you may have, as well as providing us feedback on your care experience. We strive to always provide excellent care and thank you for your feedback and for choosing [facility]. Prognosis: Good Rehab Potential: Fair I certify that the patient requires SNF services: Yes Overall status at discharge: patient is progressing back to baseline
[2019-06-18] MEDS: SENNOSIDES/DOCUSATE SODIUM 1 TAB TABLET PO SCH (20:24)
[2019-06-18] MEDS: SIMVASTATIN 10 MG TABLET PO SCH (20:24)
--- NOTE | 2019-06-18 20:49 | Internal Med Progress Note ---
Medical - PN: Subj Patient information: Note initiated : 06/18/19 at 8:47 pm Service Date, if different from initiated Date: [] Patient: Jovon Padilla 79 y/o M admitted on 06/15/19 for FALL. Chief Complaint: [] Interval history: Mr. Padilla is a 79 year old M with a recent history of right knee arthroplasty 04/28. He had had 3 recent hospitalizations following falls and subsequent wound dehiscence managed with right knee irrigation/liner exchange and 2 weeks antibiotics. He was also admitted recently for A. fib RVR. He continues to experience recurrent falls. This evening he was trying to get out of bathroom and slipped on a towel and again opened up the incision site at his right knee surgery area. Patient comes to the ER and subsequently orthopedics were consulted. Hospitalist services requested for admission. Initial work-up was essentially unremarkable. At the time of evaluation patient is alert and oriented. He was able to endorse history as above. He denies blistering events including lightheadedness dizziness chest palpitation or loss of consciousness. 06/15-patient due for surgery. No overnight events. DC IV fluids. Keep n.p.o. Pain adequately controlled. Restart home medications. Review postoperatively. No family at bedside. Await further orthopedic recommendations 06/16-patient now postop day 2. Doing well. No significant pain. Continues to resist SNF transfer despite multiple falls and recurrent wound dehiscence x5. Will continue further discussions due to safety issues and inability to take care of self. On IV vancomycin per orthopedics. Continue postoperative rehab 06/17-patient doing well. Postop day 3. No overnight events. Ongoing physiotherapy. Anticipate discharge in 24 to 48 hours ID recommends oral Zyvox on discharge for 21 days. Continue postop management per orthopedics. Pain in good control. No overnight fever chills or concerns per staff 06/18-patient doing well. No overnight events. Ongoing physical therapy. Patient will likely discharge to SNF/advanced care for continued posthospitalization rehab in the next 24 hours. Continue Zyvox for 21 days as per ID. - Constitutional Vitals: Vital Signs Temp Pulse Resp BP Pulse Ox 97.5 F 85 20 140/75 95 06/18/19 16:00 06/18/19 16:00 06/18/19 16:00 06/18/19 16:00 06/18/19 16:00 Period Temp Pulse Resp BP Sys/Donald Pulse Ox Last 24 Hr 96.6 F-97.5 F 68-89 20-20 116-143/56-75 94-96 Intake and Output 06/18/19 06/18/19 06/18/19 05:59 13:59 21:59 Intake Total 350 840 Output Total 500 1400 625 Balance -150 -560 -625 Weight 264 lb Patient Weight 06/19/19 05:59 Weight 264 lb Intake & Output: Intake & Output 06/18/19 06/18/19 06/18/19 05:59 13:59 21:59 Intake Total 350 840 Output Total 500 1400 625 Balance -150 -560 -625 Weight 264 lb Intake: Oral 350 840 Output: Void Amount 500 1400 625 Other: Meal Lunch Percent of Meal Consumed 100% Feeding Ability Independent Urine Appearance Clear Clear Urine Color Pale Bright Yellow Stool Size Copious # Bowel Movements 1 General appearance: cooperative, no acute distress Exam: Alert oriented nonlabored breathing No anxiety Minimal oozing at right knee to surgery site Medical - PN: Obj Da - Labs CBC & Chem 7: 06/18/19 04:40 06/18/19 04:40 Labs: Abnormal Lab Results 06/18/19 06/18/19 06/17/19 04:40 04:40 04:30 RBC 3.31 L Hgb 10.3 L Hct 31.1 L RDW 15.6 H ESR Creatinine 1.3 H Glucose 109 H Uric Acid 9.3 H Phosphorus 4.7 H C-Reactive Protein 2.8 H 06/17/19 06/17/19 06/17/19 04:30 04:30 04:30 RBC 3.45 L Hgb 10.7 L Hct 32.6 L RDW 15.3 H ESR 21 H Creatinine Glucose 152 H Uric Acid Phosphorus C-Reactive Protein Meds: Medications Acetaminophen (Tylenol) 650 mg PO Q4-6HP PRN PRN Reason: PAIN/FEVER > 101 Hydrocodone Bitart/Acetaminophen ([place] 10/325mg) 1 - 2 tab PO Q4HP PRN PRN Reason: Pain Last Admin: 06/17/19 21:40 Dose: 1 tab Documented by: Aspirin (Aspirin) 81 mg PO BID [facility] Last Admin: 09/19/19 20:24 Dose: 81 mg Documented by: Docusate Sodium (Colace) 100 mg PO BID [facility] Last Admin: 06/18/19 20:24 Dose: 100 mg Documented by: Famotidine (Pepcid) 20 mg PO DAILY [facility] Last Admin: 06/18/19 08:34 Dose: 20 mg Documented by: Ferrous Sulfate (Ferrous Sulfate) 650 mg PO [facility] Last Admin: 06/18/19 08:33 Dose: 650 mg Documented by: Furosemide (Lasix) 80 mg PO DAILY [facility] Last Admin: 06/18/19 08:33 Dose: 80 mg Documented by: Hydromorphone HCl (Dilaudid) 0 mg IV Q4HP PRN PRN Reason: PAIN LEVEL > 6 Magnesium Sulfate (Magnesium Sulfate) 2 gm in 50 mls @ 50 mls/hr IV UD PRN PRN Reason: MG = or < 1.7 Acetaminophen (Ofirmev) 1,000 mg in 100 mls @ 200 mls/hr IV Q6HP PRN PRN Reason: PAIN/FEVER > 101 Iron Carb/Multivit/Toolmaker Grade Three/Folic Acid (Multivitamin W/Minerals) 1 tab PO DAILY [facility] Last Admin: 06/18/19 08:33 Dose: 1 tab Documented by: Linezolid (Zyvox) 600 mg PO Q12 [facility]; Protocol Last Admin: 06/18/19 20:24 Dose: 600 mg Documented by: Melatonin (Melatonin 3mg Tablet) 3 mg PO HSP PRN PRN Reason: Insomnia Last Admin: 06/18/19 20:25 Dose: 3 mg Documented by: Multivitamins/Minerals (Ocuvite) 1 tab PO DAILY [facility] Last Admin: 06/18/19 08:32 Dose: 1 tab Documented by: Mupirocin (Bactroban Oint 2%) 1 dose NARES BID [facility] Last Admin: 06/18/19 20:25 Dose: 1 dose Documented by: Ondansetron HCl (Zofran) 4 mg IV Q4-6HP PRN PRN Reason: Nausea And Vomiting Potassium Chloride (Klor-Con) 40 meq PO DAILYP PRN PRN Reason: K+ < 3.5 Senna/Docusate Sodium (Senna Plus Tablet) 1 tab PO HS [facility] Last Admin: 06/18/19 20:24 Dose: 1 tab Documented by: Simvastatin (Zocor) 10 mg PO [facility] Last Admin: 06/18/19 20:24 Dose: 10 mg Documented by: Sodium Chloride (Saline Flush) 10 ml IV Q8 [facility] Last Admin: 06/18/19 20:25 Dose: Not Given Documented by: Verapamil HCl (Calan Sr) 240 mg PO DAILY [facility] Last Admin: 06/18/19 08:32 Dose: 240 mg Documented by: Vitamin D (Vitamin D3) 5,000 unit PO DAILY [facility] Last Admin: 06/18/19 08:32 Dose: 5,000 unit Documented by: Medical - PN: A/P - Time Spent With Patient Total time spent is greater than 50% in coordination of care (as documented) at patient's floor/unit and/or counseling patient: 15 - 24 minutes (1) Wound dehiscence, surgical Status: Acute Assessment and plan: * Right TKA with wound dehiscence-continue oral Zyvox on discharge for 21 days as per ID recommendations * Pain management well controlled on as needed opioid. * History of paroxysmal atrial fibrillation -rate controlled on verapamil. Chads score 3 but not on anticoagulation. patient follows up with [place] cardiology Dr. Omari Miranda and is currently on aspirin for CVA prophylaxis. * [id number] on lisinopril/verapamil * Bilateral lower extremity lymphedema-on home dose scheduled Lasix * Hyperlipidemia -continue statin * Iron deficiency anemia-continue home dose ferrous sulfate * GERD continue ranitidine * COPD continue bronchodilators as needed * Prophylaxis per orthopedics Plan * Continue postoperative care per orthopedics * Daily PT OT/nutrition support * Zyvox for 20 days * Prior medical condition management on home meds * SNF transfer in 24 hours Current Visit: No
[2019-06-19] MEDS: HYDROcodone/APAP 10/325MG TABLET PO PRN (00:06)
[2019-06-19] MEDS: 0.9 % SODIUM CHLORIDE 10 ML SYRINGE IV SCH (04:59)
[2019-06-19 05:53] LABS: ALT/SGPT 9 U/l (0-40); AST/SGOT 10 U/l (0-37); Albumin 3.3 gm/dL (3.2-5.2); Albumin/Globulin Ratio 1.2 (1.0-2.3); Alkaline Phosphatase 81 U/L (39-117); Bilirubin,Direct < 0.2 mg/dL (0.0-0.3); Bilirubin,Total 0.3 mg/dL (0.0-1.0); Blood Urea Nitrogen 18 mg/dl (8-23); Calcium 8.8 mg/dl (8.6-10.4); Carbon Dioxide 31 mmol/L (22-30); Chloride 97 mmol/L (96-108); Globulin 2.8 gm/dL (2.2-3.7); Glomerular Filtration Rate 52; Glucose 130 mg/dL (70-105); Lactate Dehydrogenase 172 U/L (94-250); Phosphorous 4.4 mg/dL (2.7-4.5); Triglycerides 107 mg/dl (<150); Uric Acid 9.7 mg/dL (2.5-8.0)
--- NOTE | 2019-06-19 07:16 | Orthopedic Progress Note ---
Subjective Patient information: Note initiated : 06/19/19 at 7:15 am Service Date, if different from initiated Date: [] Patient: Jovon Padilla 79 y/o M admitted on 06/15/19 for FALL. Chief Complaint: [] Interval history: doing ok. no complaints Objective Vital signs: Vital Signs Temp Pulse Resp BP Pulse Ox 06/19/19 03:15 97.7 F 80 18 123/77 98 06/18/19 23:49 97.5 F 88 18 126/74 95 06/18/19 20:20 98.1 F 74 18 144/70 96 06/18/19 16:00 97.5 F 85 20 140/75 95 06/18/19 12:00 97.5 F 83 20 139/70 95 06/18/19 08:00 97.2 F 89 20 143/73 96 06/18/19 07:53 80 Intake and Output 06/18/19 06/19/19 06/19/19 21:59 05:59 13:59 Intake Total 800 Output Total 675 550 Balance -675 250 Intake: Oral 800 Output: Void Amount 675 550 Other: Urine Appearance Clear Clear Urine Color Dark Yellow Pale Urine Odor Normal Normal Stool Size Large Stool Color Brown Stool Consistency Soft Formed # Bowel Movements 1 Weight 264 lb Intake & Output: Intake & Output 06/18/19 06/19/19 06/19/19 21:59 05:59 13:59 Intake Total 800 Output Total 675 550 Balance -675 250 Weight 264 lb Intake: Oral 800 Output: Void Amount 675 550 Other: Urine Appearance Clear Clear Urine Color Dark Yellow Pale Urine Odor Normal Normal Stool Size Large Stool Color Brown Stool Consistency Soft Formed # Bowel Movements 1 Incision: Yes healing Incision clean and dry: Yes Dressing: Yes clean, Yes dry, Yes intact Weight bearing status: full (with brace) Neurological exam IM: Yes alert, Yes oriented X3, Yes motor sensory intact, Yes neurovascular intact Extremities exam IM: No calf tenderness, Yes Foot pink and warm, Yes neurovascular intact - Labs CBC & BMP: 06/18/19 04:40 06/19/19 04:08 Labs: 06/18/19 06/17/19 06/16/19 04:40 04:30 13:09 Hgb 10.3 L 10.7 L TNP Hct 31.1 L 32.6 L TNP 06/15/19 03:52 Hgb 11.9 L Hct 36.1 L Assessment and Plan (1) Wound dehiscence, surgical pod 3 s/p liner exchange, beads, i and d wbat in brace pt rom 0-60 pain control rehab saturday Status: Acute Qualifiers: Encounter type: initial encounter Qualified Code(s): T81.31XA - Disruption of external operation (surgical) wound, not elsewhere classified, initial encounter
[2019-06-19] MEDS: MUPIROCIN OINT 2% 22GM NARES SCH (08:42)
[2019-06-19] MEDS: ASPIRIN 81 MG TAB.CHEW PO SCH (08:42)
[2019-06-19] MEDS: FAMOTIDINE 20 MG TABLET PO SCH (08:43)
[2019-06-19] MEDS: VIT A,C & E/LUTEIN/MINERALS TABLET PO SCH (08:43)
[2019-06-19] MEDS: LINEZOLID 600 MG TABLET PO SCH (08:43)
[2019-06-19] MEDS: VITAMIN D3 5,000 UNIT CAPSULE PO SCH (08:43)
[2019-06-19] MEDS: MULTIVIT,THER IRON,CA,FA & MIN 1 TABLET PO SCH (08:43)
[2019-06-19] MEDS: FERROUS SULFATE 325 MG TABLET PO SCH (08:44)
[2019-06-19] MEDS: VERAPAMIL 120 MG TAB.XL.24H PO SCH (08:44)
[2019-06-19] MEDS: FUROSEMIDE 40 MG TABLET PO SCH (08:44)
[2019-06-19] MEDS: DOCUSATE SODIUM 100 MG CAPSULE PO SCH (08:45)
[2019-06-19] MEDS ORDERED: MAGNESIUM OXIDE 400 MG TABLET PO ONE (08:46)
[2019-06-19] MEDS ORDERED: TAMSULOSIN 0.4 MG CAPSULE PO SCH (21:00)
== END 2019-06-19 12:12 | DRG 909 ==
LOC: ED 21:17 → MEDSUR 21:17 → SUATTDRO 23:15 → MEDSUR 06-15 19:51
PROVIDERS: ADMIT Internal Medicine; ATTEND Internal Medicine